=== PATIENT | female | born 1980 | race Caucasian/White ===

== ENCOUNTER 2023-07-26 17:45 | Emergency (ER) | payer BC, SELFPAY ==
--- OUTSIDE RECORDS SUMMARY | 2023-07-26 17:50 | XMS REPORT | Continuity of Care Document ---
:1980 Author Organization [facility] t Address [address] [facility] [address] [place] [address] Care Team Providers Name Role Phone Adonis OTERO, Dimitris Primary Care Physician Oscar Bradford MD Attending Clinician GC_SWHASLWC_[place]_B Attending Clinician Unavailable Ginger Canales MA Attending Clinician Unavailable GABRIEL NGO Attending Clinician Unavailable MD VANITA BAUTISTA Attending Clinician Unavailable VANITA BAUTISTA Attending Clinician Unavailable Garfield Gómez Attending Clinician Unavailable GC_SWHASLWC_[place]_B Admitting Clinician Unavailable MD VANITA BAUTISTA Admitting Clinician Unavailable Garfield Gómez Admitting Clinician Unavailable Payers Payer Name Policy Type Policy Number Effective Date Expiration Date Bonnie kincaid [facility] - [address] [facility] [id number] BENEFITS - CIGNA (PPO) [facility] [id number] Problems Condition Condition Condition Status Onset Resolution Last Treating Co mments Source Name Details Category Date Date Treatment Clinician Date No known No known Disease Metho di active active st problems problems Hospit a l Allergies, Adverse Reactions, Alerts Allergy Allergy Status Severity Reaction(s) Onset Inactive Treating Comm ents Source Name Type Date Date Clinician benzonat DA Active [place] [facility] ate 05-30 [facility] 00:00: d 00 [facility] Center lisinopr DA Active U 2018-0 [facility] il 6 [place] 00:[facility]: d 00 [facility] benzonat DA Active U 2018-0 [facility] ate 6 [place] 00:00: d 00 [facility] Lisinopr Propensi Active Swelling 2018-0 Meth salazar il ty to 05-29 st adverse 00:00: Hospita reaction 00 l s to drug Family History Family Member Diagnosis Comments Start Date Stop Date Source Natural father Hyperlipidemia Method [facility] father Ob[facility] Natural father Diabetes [facility] Maternal grandmother [facility] Maternal grandmother Heart disease [facility]aternal grandmother Osteoporosis [facility] Natural mother Cancer [facility] Natural mother Diabetes [facility] Natural mother Hyperlipidemia Method [facility] Natural mother Hypertension [facility] mother Obesity [facility] Social History Social Habit Start Date Stop Date Quantity Comments Source Gender identity 2020-04-12 Identifies as Method ist 12:47:03 female gender Hospital (finding) Sexual orientation 2020-04-12 Heterosexual Meth odist 12:47:03 (finding) Hospital History SDOH Zoroastrianism Alcohol Std Drinks Hospit al History SDOH Zoroastrianism Alcohol Binge Hospital History SDOH Zoroastrianism Alcohol Comment Hospital Alcohol intake 2023-03-19 2023-03-19 Current drinker of Me thodist 00:00:00 00:00:00 alcohol (finding) Hospita l History of Social 2023-03-19 2023-03-[address] function 00:00:00 00:00:00 Hospital History SDOH 2020-06-09 2020-06-09 1 Zoroastrianism Alcohol Frequency 00:00:00 00:00:00 Hospita l Tobacco use and 2019-09-08 2019-09-08 Smokeless tobacco [facility] exposure 00:00:00 00:00:00 non-user Hospital Sex Assigned At [birth year] Zoroastrianism 00:00:00 00:00:00 Hospital Smoking Status Start Date Stop Date Source Never smoked tobacco Zoroastrianism H ospital Medications Ordered Filled Start Stop Current Ordering Indication Dosage Frequency Signature Comments Components Source Medication Medication Date Date Medication? Clinician (SIG) Name Name magnesium Yes 400mg QD Take 1 Metho di oxide 4-[address] (MAG-OX) 15:30: (400 mg Hospit a 400 mg 01 total) by l (241.3 mg mouth magnesium) daily. tablet multivitami 2022-0 Yes 1{tbl} QD Take 1 Me thodi n 4-[address] (THERAGRAN) 15:30: mouth Hospi ta tablet 01 daily. l melatonin 5 0 Yes Take by Met hodi mg capsule 4-[address] 15:30: Hospita 01 l cholecalcif 0 Yes [id number] Q7D Take 1 Me thodi earl, 4-[address] vitamin D3, 00:00: (50,000 Hos eulalia 1,250 mcg 00 Units l (50,000 total) by unit) mouth once capsule a week. acarbose 0 2023- No 50mg Q.[id number] Take 1 Methodi (PRECOSE) 03-19 04-20 [id number] tablet (50 st 50 MG 00:00: 04:59 3D mg total) Hospit a tablet 00 :00 by mouth 3 l (three) times a day with meals. Wegovy 0.5 0 Yes .5mg Q7D Inject 0.5 M ethodi mg/0.5 mL 3-30 mL (0.[address] pen 00:00: total) Hospita injector 00 under the l skin once a week. cholecalcif 2022- No TAKE ONE M ethodi earl, 12-02 04-20 (1) st vitamin D3, 00:00: 00:00 CAPSULE BY Hospita 1,250 mcg 00 :00 MOUTH ONCE l (50,000 A WEEK. unit) capsule omeprazole 2021-11 No 20mg Q2D Take 20 mg Methodi (PriLOSEC) 01-07 12-[address] 20 MG 16:30: 00:00 every Hospita capsule 22 :00 other day. l semaglutide 2021-11- No 1mg Q7D Inject Met hodi (OZEMPIC) 1 01-07-20 0.75 mL (1 s t mg/dose (4 00:00: 00:00 mg total) H ospita mg/3 mL) 00 :00 under the l subcutaneou skin once s pen a week. cholecalcif 2021-11- No [id number] Q.5W Take 1 M ethodi earl, 01-[address] vitamin D3, 00:00: 00:00 (50,000 Ho spita 1,250 mcg 00 :00 Units l (50,000 total) by unit) mouth 2 capsule (two) times a week. cholecalcif 2021- No [id number] Q7D Take 1 M ethodi earl, 07-[address] vitamin D3, 00:00: 00:00 (50,000 Ho spita 1,250 mcg 00 :00 Units l (50,000 total) by unit) mouth once capsule a week. semaglutide 2021- No .5mg Q7D Inject Met hodi (Ozempic) 07-[address] 0.25 mg or 00:00: 00:00 (0.5 mg Hos eulalia 0.5 mg(2 00 :00 total) l mg/1.5 mL) under the subcutaneou skin once s pen a week. donepeziL Yes [id number] 10mg QD Take 1 M ethodi (ARICEPT) 7-13 tablet (10 st 10 MG 00:00: mg total) Hospita tablet 00 by mouth l nightly. gabapentin Yes [id number] 1{tbl} QD Take 1 Methodi (Gralise) 7-[address] 600 mg 00:00: mouth Hospita tablet 00 daily. l extended release 24 hr memantine Yes [id number] 10mg Q.5D Take 1 M ethodi (Namenda) 7-13 tablet (10 st 10 MG 00:00: mg total) Hospita tablet 00 by mouth 2 l (two) times a day. buPROPion Yes 150mg QD Take 150 Met hodi XL 1-[address] (WELLBUTRIN 10:23: mouth Hospi ta XL) 150 MG 51 daily. l 24 hr tablet atorvastati 0 Yes 10mg QD Take 10 mg Methodi n (LIPITOR) 1-[address] 40 MG 10:23: daily. Hospita tablet 25 l donepeziL 0 2020- No [id number] 10mg QD Take 1 Methodi (ARICEPT) 1-14 07-13 tablet (10 st 10 MG 00:00: 00:00 mg total) Hospit a tablet 00 :00 by mouth l nightly. gabapentin 2020- No [id number] 1{tbl} QD Take 1 Methodi (Gralise) 12-[address] 600 mg 00:00: 00:00 mouth Hospita tablet 00 :00 daily. l extended release 24 hr memantine 2020- No [id number] 10mg Q.5D Take 1 Methodi (Namenda) 12-13 tablet (10 st 10 MG 00:00: 00:00 mg total) Hospit a tablet 00 :00 by mouth 2 l (two) times a day. magnesium 2020-0 Yes 400mg QD Take 400 Met hodi oxide 5-[address] (MAG-OX) 06:54: mouth Hospita 400 mg 01 daily. l (241.3 mg magnesium) tablet multivitami 2020-0 Yes 1{tbl} QD Take 1 Me thodi n 5-[address] (THERAGRAN) 06:54: mouth Hospi ta tablet 01 daily. l melatonin 5 2020-0 Yes Take by Met hodi mg capsule 5-[address] 06:54: Hospita 01 l aspirin 325 2020-0 Yes 325mg QD Take 325 M ethodi MG tablet 1-[address] 17:24: mouth Hospita 13 daily. l cyanocobala 2018-11 Yes Q30D every 30 Me thodi min 1,000 0-02 (thirty) st mcg/mL 00:00: days. Hospita injection l furosemide 2018-11 Yes 20mg QD Take 20 mg M ethodi (LASIX) 20 0-[address] mg tablet 00:00: daily. Hospit a 00 l cyanocobala 2018-11 Yes Q30D every 30 Me thodi min 1,000 0-02 (thirty) st mcg/mL 00:00: days. Hospita injection 00 l furosemide 2018-11- No 20mg QD Take 1 Meth salazar (LASIX) 20 0-02 04-20 tablet (20 st mg tablet 00:00: 00:00 mg total) Ho spita 00 :00 by mouth l daily. XARELTO 20 Yes 20mg QD Take 20 mg M ethodi mg tablet - by mouth st 00:00: daily. Hospita 00 l XARELTO Yes 20mg QD Take 1 Metho di mg tablet - tablet ( 00:00: mg total) Hospita 00 by mouth l daily. amoxicillin amoxicillin No amoxicilli [facility] [phone] [phone] Medical mg-potassiu mg-potassiu mg-potassi m m um clavulanate clavulanate clavulanat 125 mg 125 mg e 125 mg tablet TAKE tablet TAKE tablet ONE (1) ONE (1) TAKE ONE TABLET BY TABLET BY (1) TABLET MOUTH TWICE MOUTH TWICE BY MOUTH A DAY FOR 7 A DAY FOR 7 TWICE A DAYS. DAYS. DAY FOR 7 DAYS. bromphenira bromphenira No bromphenir [facility] mine-pseudo mine-pseudo amine-pseu Medical ephedrine-D ephedrine-D doephedrin M 2 mg-30 M 2 mg-30 e-DM 2 mg-10 mg/5 mg-10 mg/5 mg-30 mL oral mL oral mg-10 mg/5 syrup TAKE syrup TAKE mL oral 10 ML(S) BY 10 ML(S) BY syrup TAKE MOUTH EVERY MOUTH EVERY 10 ML(S) 4 HOURS 4 HOURS BY MOUTH NEEDED. NEEDED. EVERY 4 HOURS NEEDED. cholecalcif cholecalcif No cholecalci [facility] earl earl ferol Medical (vitamin (vitamin (vitamin D3) 1,250 D3) 1,250 D3) 1,250 mcg (50,000 mcg (50,000 mcg unit) unit) (50,000 capsule capsule unit) TAKE ONE TAKE ONE capsule (1) CAPSULE (1) CAPSULE TAKE ONE BY MOUTH BY MOUTH (1) ONCE A ONCE A CAPSULE BY WEEK. WEEK. MOUTH ONCE A WEEK. fluconazole fluconazole No 1 Q1D fluconazol [facility] 150 mg 150 mg e 150 mg Medical tablet Take tablet Take tablet 1 tablet 1 tablet Take 1 every day every day tablet by oral by oral every day route for 2 route for 2 by oral days. days. route for 2 days. furosemide furosemide No furosemide [facility] 20 mg 20 mg 20 mg Medical tablet TAKE tablet TAKE tablet ONE (1) ONE (1) TAKE ONE TABLET(S) TABLET(S) (1) BY MOUTH BY MOUTH TABLET(S) ONCE A DAY. ONCE A DAY. BY MOUTH ONCE A DAY. methylpredn methylpredn No methylpred [facility] isolone 4 isolone 4 nisolone 4 Medical mg tablets mg tablets mg tablets in a dose in a dose in a dose pack TAKE pack TAKE pack TAKE BY MOUTH BY MOUTH BY MOUTH ACCORDING ACCORDING ACCORDING TO PACKAGE TO PACKAGE TO PACKAGE INSTRUCTION INSTRUCTION INSTRUCTIO S FOR 6 S FOR 6 NS FOR 6 DAYS. DAYS. DAYS. Nasopen PE Nasopen PE No Nasopen PE [facility] 50 mg-10 50 mg-10 50 mg-10 Med ical mg/15 mL mg/15 mL mg/15 mL oral liquid oral liquid oral TAKE 15 TAKE 15 liquid ML(S) BY ML(S) BY TAKE 15 MOUTH EVERY MOUTH EVERY ML(S) BY 6 HOURS 6 HOURS MOUTH NEEDED FOR NEEDED FOR EVERY 6 CONGESTION. CONGESTION. HOURS NEEDED FOR CONGESTION . Ozempic 1 Ozempic 1 No Ozempic 1 [facility] mg/dose (4 mg/dose (4 mg/dose (4 Medical mg/3 mL) mg/3 mL) mg/3 mL) subcutaneou subcutaneou subcutaneo s pen s pen us pen injector injector injector INJECT ONE INJECT ONE INJECT ONE (1) MG (1) MG (1) MG SUBCUTANEOU SUBCUTANEOU SUBCUTANEO SLY ONCE A SLY ONCE A USLY ONCE WEEK. WEEK. A WEEK. phenazopyri phenazopyri No phenazopyr [facility] dine 200 mg dine 200 mg idine 200 Medical tablet TAKE tablet TAKE mg tablet ONE (1) ONE (1) TAKE ONE TABLET BY TABLET BY (1) TABLET MOUTH THREE MOUTH THREE BY MOUTH TIMES A DAY TIMES A DAY THREE FOR 2 DAYS. FOR 2 DAYS. TIMES A DAY FOR 2 DAYS. Rybelsus 7 Rybelsus 7 No Rybelsus 7 [facility] mg tablet mg tablet mg tablet Medical TAKE ONE TAKE ONE TAKE ONE (1) TABLET (1) TABLET (1) TABLET BY MOUTH BY MOUTH BY MOUTH DAILY. DAILY. DAILY. tizanidine tizanidine No tizanidine [facility] 4 mg tablet 4 mg tablet 4 mg M edical TAKE ONE TAKE ONE tablet (1) TABLET (1) TABLET TAKE ONE BY MOUTH BY MOUTH (1) TABLET THREE TIMES THREE TIMES BY MOUTH A DAY A DAY THREE NEEDED FOR NEEDED FOR TIMES A MUSCLE MUSCLE DAY SPASMS. SPASMS. NEEDED FOR MUSCLE SPASMS. Vanacof 1 Vanacof 1 No Vanacof 1 [facility] mg-30 mg-30 mg-30 Medical mg-12.5 mg-12.5 mg-12.5 mg/5 mL mg/5 mL mg/5 mL oral liquid oral liquid oral TAKE 10 TAKE 10 liquid ML(S) BY ML(S) BY TAKE 10 MOUTH EVERY MOUTH EVERY ML(S) BY 8 HOURS FOR 8 HOURS FOR MOUTH COUGH/CONGE COUGH/CONGE EVERY 8 STION/DRAIN STION/DRAIN HOURS FOR AGE. AGE. COUGH/NII ESTION/KHANH INAGE. Xarelto 20 Xarelto 20 No Xarelto 20 [facility] mg tablet mg tablet mg tablet Medical TAKE ONE TAKE ONE TAKE ONE (1) TABLET (1) TABLET (1) TABLET BY MOUTH BY MOUTH BY MOUTH DAILY. DAILY. DAILY. Vital Signs Vital Name Observation Time Observation Value Comments Source Systolic blood 2023-03-19 20:33:00 121 mm[Hg] [facility] pressure Diastolic blood 2023-03-19 20:33:00 83 mm[Hg] [facility] pressure Heart rate 2023-03-19 20:33:00 74 /min [facility] Body height 2023-03-19 20:33:00 165.1 cm [facility] Body weight 2023-03-19 20:33:00 150.594 kg [facility] BMI 2023-03-19 20:33:00 55.25 kg/m2 [facility] Procedures Procedure Date / Time Performed Performing Clinician Sourc e MAMMO, screening, digital, 2023-01-15 00:00:00 P [facility] bilateral Eswl for Gallstones [facility] Gastric Bypass for Obesity [facility] Plan of Care Planned Activity Planned Date Details Comments Source Future Scheduled Test 2023-07-26 COVID-19 VACCINE (#1) [facility] 12:34:57 [code = COVID-19 VACCINE (#1)] Future Scheduled Test 2023-07-26 Hepatitis C screening [facility] 12:34:57 (procedure) [code = 712944858] Future Scheduled Test 2023-07-26 [facility] 12:34:57 malignant neoplasm of cervix (procedure) [code = 902147646] Future Scheduled Test 2023-07-26 BREAST CANCER [facility] 12:34:57 SCREENING [code = BREAST CANCER SCREENING] Future Scheduled Test 2023-07-26 INFLUENZA VACCINE M [facility] 12:34:57 (#1) [code = INFLUENZA VACCINE (#1)] Diagnostic Test 2023-01-15 pap, LB + HPV [code = [facility] Pending 00:00:00 pap, LB + HPV] Diagnostic Test 2023-01-15 Indirect antiglobulin [facility] Pending 00:00:00 test.IgG specific reagent [Presence] in Serum or Plasma [code = 1005-8] Diagnostic Test 2023-01-15 unlisted lab [code = [facility] Pending 00:00:00 unlisted lab] Diagnostic Test 2023-01-15 Clostridium tetani Ab [facility] Pending 00:00:00 [Presence] in Serum [code = 5093-0] Diagnostic Test 2023-01-15 unlisted lab [code = [facility] Pending 00:00:00 unlisted lab] Diagnostic Test 2023-01-15 HIV 1+2 AB + HIV 1 [facility] Pending 00:00:00 p24 Ag, qualitative immunoassay, serum [code = HIV 1+2 AB + HIV 1 p24 Ag, qualitative immunoassay, serum] Diagnostic Test 2023-01-15 RPR (rapid plasma [facility] Pending 00:00:00 reagin), serum [code = RPR (rapid plasma reagin), serum] Diagnostic Test 2023-01-15 HBsAg (hepatitis B [facility] Pending 00:00:00 surface Ag), serum [code = HBsAg (hepatitis B surface Ag), serum] Diagnostic Test 2023-01-15 hsv (1+2) igg, serum [facility] Pending 00:00:00 [code = hsv (1+2) igg, serum] Diagnostic Test 2023-01-15 hepatitis C Ab, serum [facility] Pending 00:00:00 [code = hepatitis C Ab, serum] Future Scheduled Test 2022-01-01 COVID-19 VACCINE (1) [facility] 00:32:29 [code = COVID-19 VACCINE (1)] Future Scheduled Test 2022-01-01 Hepatitis C screening [facility] 00:32:29 (procedure) [code = 915160249] Future Scheduled Test 2022-01-01 [facility] 00:32:29 malignant neoplasm of cervix (procedure) [code = 780877217] Future Scheduled Test 2022-01-01 INFLUENZA VACCINE [facility] 00:32:29 [code = INFLUENZA VACCINE] Future Appointment 2024-01-15 [facility] Audra, [facility] ia Medical 00:00:00 [address] [facility]; [address], [place] [address] Encounters Start End Encounter Admission Attending Care Care Encounter Source Date/Time Date/Time Type Type Clinicians Facility Department ID 2023-03-19 2023-03-19 Office Suzette, 2.840.1 [id number] [facility] 15:40:00 16:02:26 Visit Oscar 23705.1.[address] 3.430.2.7 Hospit a .3.466937 l .8 2023-03-19 2023-03-19 Travel 1.2.840.1 1.2.743.399 [id number] [facility] 00:00:00 00:00:[address] 3.430.2.7 0.2.7.3.698 Ho spita .3.681189 084.8 l .8 2023-03-19 2023-03-19 Outpatient SUZETTECAPE [facility] [id number] [place] 00:00:00 00:00:00 OSCAR [address] 2023-01-15 2023-01-15 Outpatient [facility] PRIV PRIV [id number] [facility] 00:00:00 00:00:00 _[place]_B [id number] [facility] 2023-01-15 2023-01-15 [facility] 2022 215 [facility] 00:00:00 00:00:00 [facility] Medic rosales OTERO: [id number] [facility] Office* [address], [address], [place] [address] , Ph. 2023-01-14 2023-01-14 Outpatient [facility] PRIV PRIV [id number] [facility] 00:00:00 00:00:00 _Parish_B [id number] [facility] 2023-01-09 2023-01-09 Outpatient [facility] PRIV PRIV [id number] [facility] 00:00:00 00:00:00 _Parish_B [id number] [facility] 2023-01-08 2023-01-08 Outpatient [facility] PRIV PRIV [id number] [facility] 00:00:00 00:00:00 _Parish_B [id number] [facility] 2022-12-02 2022-12-02 Refill Suzette, 1.2.840.1 [id number] [facility] 00:00:00 00:00:[address] 3.430.2.7 Hospit a .3.267816 l .8 2022-11-06 2022-11-06 Office Suzette, 1.2.840.1 [id number] [facility] 15:40:00 16:34:26 Visit Oscar [address]990.1.[address] 3.430.2.7 Hospit a .3.318946 l .8 2022-11-06 2022-11-06 Travel 1.2.840.1 1.2.227.051 [id number] [facility] 00:00:00 00:00:[address] 3.430.2.7 0.2.7.3.698 spita .3.618367 084.8 l .8 2022-11-06 2022-11-06 Outpatient [facility]TECAPE [facility] [id number] [place] 00:00:00 00:00:00 OSCAR [address] 2022-10-31 2022-10-31 Orders Parker, 1.2.840.1 [id number] [facility] 00:00:00 00:00:00 Only Ginger 51819.1.[address] 3.430.2.7 Hospit a .3.324390 l .8 2022-07-03 2022-07-03 Outpatient SUZETTE [facility] [id number] [place] 00:00:00 00:00:00 OSCAR [address] 2022-06-10 2022-06-10 Outpatient GABRIEL NGO [facility] [id number] [place] 00:00:00 00:00:[address] 2021-06-11 2021-06-11 Telemedici Gabriel Ngo 1.2.840.1 [id number] [facility] 15:37:36 15:38:[address] 3.430.2.7 Hospit a .3.199673 l .8 2020-12-13 2020-12-13 Outpatient GABRIEL NGO [facility] [id number] [place] 00:00:00 00:00:[address] 2020-07-13 2020-07-13 Outpatient GABRIEL NGO [facility] [id number] [place] 00:00:00 00:00:[address] 2020-06-09 2020-06-09 Emergency [facility] [id number] [place] 00:00:00 00:00:00 RAJEEB [address] 2020-04-12 2020-04-12 Outpatient GABRIEL NGO [facility] [id number] [place] 00:00:00 00:00:[address] Results Test Description Test Time Test Comments Results Result Comments Source Hepatitis C virus Ab [Presence] in Serum 2023-01-21 00:00:00 Test Item Value Reference Range Interpretation Comme nts hep. C Ab. (test code = hep. C Ab.) non-reactive non-reactive [facility] MedicalHerpes simplex virus 1+2 IgG Ab [Units/volume] in Serum by [id number] 00:00:00 Test Item Value Reference Range Interpretation Comments herpes I Ab.(IgG) (test code = herpes 0.02 ai <0.90 I Ab.(IgG)) herpes II Ab.(IgG) (test code = 0.11 ai <0.90 herpes II Ab.(IgG)) [facility] MedicalReagin Ab [Presence] in Serum by [id number] 00:00:00 Test Item Value Reference Range Interpretation Comments RPR (test code = RPR) non-reactive non-reactive [facility] MedicalHepatitis B virus surface Ag [Presence] in [id number] 00:00:00 Test Item Value Reference Range Interpretation Comments hep. B surf. Ag (test code = non-reactive non-reactive hep. B surf. Ag) [facility]+2 Ab+HIV1 p24 Ag [Presence] in Serum or Plasma by [id number] 00:00:00 Test Item Value Reference Range Interpretation Comments HIV Ag/Ab (test code = HIV non-reactive non-reactive Ag/Ab) [facility] [id number] (COVID-19) RNA [Presence] in Respiratory specimen by IRIS with probe [id number] 20:46:10 Test Item Value Reference Range Interpretation Comments SARS-CoV-2 (COVID-19) RNA [Presence] Detected Not-Detected in Respiratory specimen by IRIS with probe detection (test code = 08291-2) [facility] [id number] 15:19:00 Test Item Value Reference Range Interpretation Comments FACTOR II (test code = FAC2) 116 % 50-154 FACTOR V [id number] 15:19:00 Test Item Value Reference Range Interpretation Comments FACTOR V Result: Negativ e (no mutation MUTATION (test found)Factor V Leiden is a code = FAC5M) specific mutat ion (R506Q) in thefactor V gen e that is associated with an increased risk ofvenous t hrombosis. Factor V Leiden is mor e resistant toinactivation by activated protein C. As a result, factor Vpersists in th e circulation leading to a mi ldhypercoagulable state. The Leid en mutation accounts for 90 %- 95% of APC resistance. Fac tor V Leiden has been reportedin patients with deep vein throm bosis, pulmonary embolus,central retinal vein occlusion, cere bral sinus thrombosisand h epatic vein thrombosis. Ot er risk factors to beconsidered in the workup for venous thro mbosis include [id number] muta tion in the factor II (prot hrombin) gene,protein S and C deficiency, and antithrombi n deficiencies.An ticardiolipin antibody and rody pus anticoagulant analysismay be appropriate for certain patient s, as well ashomocysteine levels. Contact your local [facility] orp forinformation on how to order additional test ing if desired.Ashley ic counselors are available for [facility] careproviders t o discuss results at [address] [place] [address] ([phone]).Methodol ogy:DNA analysis of the Factor V gene was performed by al shahram-specific PCR. The diagno stic sensitivity and specificity is>99% for both. Molecular -based testing is highly accurate ,but as in any laboratory test , diagnostic errors may occu r.All test results must be combined with clinical inform ationfor the most accurate interp retation.This test was develo ped and its performance characteristics determined by [facility]. It has not been cleared or approvedby [facility] Food and Drug Administration. References:Abner Moore (1995). Clin Lab Med 16:169-186.Poonam Bae, PhD, Aniyah Carranza, PhD, Rosette Steel M.S., PhD, Jan Zaman, PhD, Rajiv aviles, PhD, Cassi ramos PhD, FACMGPerformed At: [facility] [id number] [place], [place] [id number] Eusebiobety Harvey Ph: [phone] ANTITHROMBIN III (ATIII)2019-06-06 15:19:00 Test Item Value Reference Range Interpretation Comments ANTITHROMBIN III 115 % 75-135 Direct Xa i nhibitor (ATIII) (test code = anticoa gulants such as AT3) rivaroxaban,api xaban and edoxaban will l ead to spuriously elevatedantithr ombin activity levels possibly masking a defic iency. PROTEIN C [id number] 15:19:00 Test Item Value Reference Range Interpretation Comments PROTEIN C FUNCTIONAL 82 % 73-180 Perform ed At: BN (test code = PROTCFN) [facility] [id number] [facility] Brayden fuentes, [place] [id number] laura Little MD Ph:[phone] [id number] 15:19:00 Test Item Value Reference Range Interpretation Comments [id number] < 9 0-32 INFCE Result Un its: GPI IgM I IGM (test unitsThe refere nce interval code = reflects a 3SD or 99th GPIIGM) percentileinter joshua, which is thought to repr esent a potentiallyclin ically significant res ult in accordance with theInternationa l Consensus Statement on e classificationc riteria for definitive anti phospholipid syndrome (APS). JThromb Haem 2006;4:295-306. Performed At: [facility] [id number] [facility] Nuzhat aviles, [place] [id number] ra Sidney OTERO Ph:[phone] [id number] < 9 0-20 INFCE Result Un its: GPI IgG I IGG (test unitsThe refere nce interval code = reflects a 3SD or 99th GPIIGG) percentileinter joshua, which is thought to repr esent a potentiallyclin ically significant res ult in accordance with theInternationa l Consensus Statement on e classificationc riteria for definitive anti phospholipid syndrome (APS). JThromb Haem 2006;4:295-306. [id number]-9-[id number] < 9 UNITS 0.0-20.0 N I IGA (test code = GPIIGA) FACTOR [id number] 12:23:00 Test Item Value Reference Range Interpretation Comments FACTOR II (test code = FAC2) 116 % 50-154 FACTOR V [id number] 12:23:00 Test Item Value Reference Range Interpretation Comments FACTOR V MUTATION (test code = FAC5M) ANTITHROMBIN III (ATIII)2019-06-04 12:23:00 Test Item Value Reference Range Interpretation Comments ANTITHROMBIN III 115 % 75-135 Direct Xa i nhibitor (ATIII) (test code = anticoa gulants such as AT3) rivaroxaban,api xaban and edoxaban will l ead to spuriously elevatedantithr ombin activity levels possibly masking a defic iency. PROTEIN C [id number] 12:23:00 Test Item Value Reference Range Interpretation Comments PROTEIN C FUNCTIONAL 82 % 73-180 Perform ed At: BN (test code = PROTCFN) [facility] [address] [facility] [place], [place] [id number] laura Little MD Ph:[phone] [id number] 12:23:00 Test Item Value Reference Range Interpretation Comments [id number]-6-[id number] I < 9 0-32 INFCE Result Units: GPI IgM IGM (test code unitsThe refe rence interval = GPIIGM) reflects a 3SD or 99th percentileinter joshua, which is thought to repr esent a potentiallyclin ically significant res ult in accordance with theInterna tional Consensus Statement on e classificationc riteria for definitive anti phospholipid syndrome (APS). JThromb Haem 2006;4:295-306. Performed At: [facility] [id number] [facility] n, [place] [id number] ra Sidney OTERO Ph:[phone] [id number] I < 9 0-20 INFCE Result Units: GPI IgG IGG (test code unitsThe refe rence interval = GPIIGG) reflects a 3SD or 99th percentileinter joshua, which is thought to repr esent a potentiallyclin ically significant res ult in accordance with theInterna tional Consensus Statement on th e classificationc riteria for definitive anti phospholipid syndrome (APS). JThromb Haem 2006;4:295-306. [id number]-5-[id number] I UNITS 0.0-20.0 IGA (test code = GPIIGA) CARDIOLIPIN AB IGG (CHEM)2019-06-02 21:11:00 Test Item Value Reference Range Interpretation Comments CARDIOLIPIN AB IGG <9 GPL U/mL 0-14 Negative : <15 (CHEM) (test code = Indeterm inate: 15 - CARDIOGAB) 20 Low-Med Positive: >20 - 80 High Positive: >80 CARDIOLIPIN AB IGM (CHEM)2019-06-02 21:11:00 Test Item Value Reference Range Interpretation Comments CARDIOLIPIN AB IGM <9 MPL U/mL 0-12 Negative : <13 (CHEM) (test code = Indeterm inate: 13 - CARDIOMAB) 20 Low-Med Positive: >20 - 80 High Positive: >80Performed At : [facility] [id number] [facility] n, [place] [id number] ra Sidney OTERO Ph:[phone] HOMOCYSTEINE [id number] 12:54:00 Test Item Value Reference Range Interpretation Comments HOMOCYSTEINE QN (test 9.3 umol/L 0.0-15.0 Perfor med At: HD code = HOMOCY) [facility] [id number] [place], [place] [id number] Kyle L MD Ph:[phone] CBC W/AUTO [id number] 02:59:00 Test Item Value Reference Range Interpretation Comments WHITE BLOOD CELL (test code = 7.9 x10 3/uL 5.0-12.0 N WBC) RED BLOOD CELL (test code = 4.07 x10 6/uL 4.20-5.40 L RBC) HEMOGLOBIN (test code = HGB) 7.8 g/dL 12.0-16.0 L HEMATOCRIT (test code = HCT) 28.2 % 36.0-46.0 L MEAN CELL VOLUME (test code = 69 fL 81-99 L MCV) MEAN CELL HGB (test code = MCH) 19.2 pg 27-31 L MEAN CELL HGB CONCENTRATION 27.7 g/dL 33-37 L (test code = MCHC) RED CELL DISTRIBUTION WIDTH 18.3 % 11.5-15.5 H (test code = RDW) PLATELET COUNT (test code = 377 x10 3/uL 130-400 N PLT) MEAN PLATELET VOLUME (test code 9.7 fL 9.4-16.4 N = MPV) NEUTROPHIL % (test code = NT%) 61.6 % 43-65 N IMMATURE GRANULOCYTE % (test 0.4 % 0.0-2.0 N code = IG%) LYMPHOCYTE % (test code = LY%) 28.2 % 20.5-45.5 N MONOCYTE % (test code = MO%) 8.2 % 5.5-11.7 N EOSINOPHIL % (test code = EO%) 1.1 % 0.9-2.9 N BASOPHIL % (test code = BA%) 0.5 % 0.2-1.0 N NUCLEATED RBC % (test code = 0.0 % 0-1.0 N NRBC%) NEUTROPHIL # (test code = NT#) 4.88 x10 3/uL 2.2-4.8 H IMMATURE GRANULOCYTE # (test 0.03 x10 3/uL 0-0.03 N code = IG#) LYMPHOCYTE # (test code = LY#) 2.24 x10 3/uL 1.3-2.9 N MONOCYTE # (test code = MO#) 0.65 x10 3/uL 0.3-0.8 N EOSINOPHIL # (test code = EO#) 0.09 x10 3/uL 0.0-0.2 N BASOPHIL # (test code = BA#) 0.04 x10 3/uL 0.0-0.1 N PLATELET ESTIMATE (test code = ADEQUATE ADEQUATE PLTEST) PLATELET MORPHOLOGY (test code NORMAL NORMAL = PLTMORPH) DIFFERENTIAL [id number] 02:59:00 Test Item Value Reference Range Interpretation Comments POLYCHROMASIA (test code = POLC) 1+ NONE SEEN A ANISOCYTOSIS (test code = ANISO) 2+ NONE SEEN A MICROCYTOSIS (test code = MICR) 2+ NONE SEEN A BASIC METABOLIC [id number] 02:45:00 Test Item Value Reference Range Interpretation Comments SODIUM (test code = 139 mmol/L 137-145 N NA) POTASSIUM (test code 3.6 mmol/L 3.4-5.0 N = K) CHLORIDE (test code = 109 mmol/L 98-107 H CL) CARBON DIOXIDE (test 20 mmol/L 22-30 L code = CO2) GLUCOSE (test code = 84 mg/dL 74-106 N GLU) BLOOD UREA NITROGEN 9 mg/dL 7-17 N (test code = BUN) GLOMERULAR FILTRATION 118 >60 The es timated RATE (test code = glomerular filtration GFR) rate is compute d usingpatient ra ce, age (>18), sex, and serum creatinine. If anyof the needed data elements are mi ssing the Laboratory cannot compute an addie mation of the glomerul ar filtration rate . CREATININE (test code 0.6 mg/dL 0.5-1.0 N = CREAT) CALCIUM (test code = 8.6 mg/dL 8.4-10.2 N CA) [id number] 02:45:00 Test Item Value Reference Range Interpretation Comments MAGNESIUM (test code = MAG) 1.9 mg/dL 1.6-2.3 N CBC W/AUTO [id number] 02:33:00 Test Item Value Reference Range Interpretation Comments WHITE BLOOD CELL (test code = 7.9 x10 3/uL 5.0-12.0 N WBC) RED BLOOD CELL (test code = 4.07 x10 6/uL 4.20-5.40 L RBC) HEMOGLOBIN (test code = HGB) 7.8 g/dL 12.0-16.0 L HEMATOCRIT (test code = HCT) 28.2 % 36.0-46.0 L MEAN CELL VOLUME (test code = 69 fL 81-99 L MCV) MEAN CELL HGB (test code = MCH) 19.2 pg 27-31 L MEAN CELL HGB CONCENTRATION 27.7 g/dL 33-37 L (test code = MCHC) RED CELL DISTRIBUTION WIDTH 18.3 % 11.5-15.5 H (test code = RDW) PLATELET COUNT (test code = 377 x10 3/uL 130-400 N PLT) MEAN PLATELET VOLUME (test code 9.7 fL 9.4-16.4 N = MPV) NEUTROPHIL % (test code = NT%) 61.6 % 43-65 N IMMATURE GRANULOCYTE % (test 0.4 % 0.0-2.0 N code = IG%) LYMPHOCYTE % (test code = LY%) 28.2 % 20.5-45.5 N MONOCYTE % (test code = MO%) 8.2 % 5.5-11.7 N EOSINOPHIL % (test code = EO%) 1.1 % 0.9-2.9 N BASOPHIL % (test code = BA%) 0.5 % 0.2-1.0 N NUCLEATED RBC % (test code = 0.0 % 0-1.0 N NRBC%) NEUTROPHIL # (test code = NT#) 4.88 x10 3/uL 2.2-4.8 H IMMATURE GRANULOCYTE # (test 0.03 x10 3/uL 0-0.03 N code = IG#) LYMPHOCYTE # (test code = LY#) 2.24 x10 3/uL 1.3-2.9 N MONOCYTE # (test code = MO#) 0.65 x10 3/uL 0.3-0.8 N EOSINOPHIL # (test code = EO#) 0.09 x10 3/uL 0.0-0.2 N BASOPHIL # (test code = BA#) 0.04 x10 3/uL 0.0-0.1 N CBC W/AUTO [id number] 02:33:00 Test Item Value Reference Range Interpretation Comments WHITE BLOOD CELL (test code = 7.9 x10 3/uL 5.0-12.0 N WBC) RED BLOOD CELL (test code = 4.07 x10 6/uL 4.20-5.40 L RBC) HEMOGLOBIN (test code = HGB) 7.8 g/dL 12.0-16.0 L HEMATOCRIT (test code = HCT) 28.2 % 36.0-46.0 L MEAN CELL VOLUME (test code = 69 fL 81-99 L MCV) MEAN CELL HGB (test code = MCH) 19.2 pg 27-31 L MEAN CELL HGB CONCENTRATION 27.7 g/dL 33-37 L (test code = MCHC) RED CELL DISTRIBUTION WIDTH 18.3 % 11.5-15.5 H (test code = RDW) PLATELET COUNT (test code = 377 x10 3/uL 130-400 N PLT) MEAN PLATELET VOLUME (test code 9.7 fL 9.4-16.4 N = MPV) NEUTROPHIL % (test code = NT%) 61.6 % 43-65 N IMMATURE GRANULOCYTE % (test 0.4 % 0.0-2.0 N code = IG%) LYMPHOCYTE % (test code = LY%) 28.2 % 20.5-45.5 N MONOCYTE % (test code = MO%) 8.2 % 5.5-11.7 N EOSINOPHIL % (test code = EO%) 1.1 % 0.9-2.9 N BASOPHIL % (test code = BA%) 0.5 % 0.2-1.0 N NUCLEATED RBC % (test code = 0.0 % 0-1.0 N NRBC%) NEUTROPHIL # (test code = NT#) 4.88 x10 3/uL 2.2-4.8 H IMMATURE GRANULOCYTE # (test 0.03 x10 3/uL 0-0.03 N code = IG#) LYMPHOCYTE # (test code = LY#) 2.24 x10 3/uL 1.3-2.9 N MONOCYTE # (test code = MO#) 0.65 x10 3/uL 0.3-0.8 N EOSINOPHIL # (test code = EO#) 0.09 x10 3/uL 0.0-0.2 N BASOPHIL # (test code = BA#) 0.04 x10 3/uL 0.0-0.1 N [id number] 14:22:00 Test Item Value Reference Range Interpretation Comments GLUBED (test code = GLUBED) 77 MG/DL 74-106 N [id number] 10:07:00 Test Item Value Reference Range Interpretation Comments GLUBED (test code = GLUBED) 74 MG/DL 74-106 N [id number] 10:07:00 Test Item Value Reference Range Interpretation Comments GLUBED (test code = GLUBED) 81 MG/DL 74-106 N CBC W/AUTO [id number] 05:57:00 Test Item Value Reference Range Interpretation Comments WHITE BLOOD CELL (test code = 6.5 x10 3/uL 5.0-12.0 N WBC) RED BLOOD CELL (test code = 4.07 x10 6/uL 4.20-5.40 L RBC) HEMOGLOBIN (test code = HGB) 7.9 g/dL 12.0-16.0 L HEMATOCRIT (test code = HCT) 27.9 % 36.0-46.0 L MEAN CELL VOLUME (test code = 69 fL 81-99 L MCV) MEAN CELL HGB (test code = MCH) 19.4 pg 27-31 L MEAN CELL HGB CONCENTRATION 28.3 g/dL 33-37 L (test code = MCHC) RED CELL DISTRIBUTION WIDTH 18.3 % 11.5-15.5 H (test code = RDW) PLATELET COUNT (test code = 375 x10 3/uL 130-400 N PLT) MEAN PLATELET VOLUME (test code 9.8 fL 9.4-16.4 N = MPV) NEUTROPHIL % (test code = NT%) 58.3 % 43-65 N IMMATURE GRANULOCYTE % (test 0.2 % 0.0-2.0 N code = IG%) LYMPHOCYTE % (test code = LY%) 31.2 % 20.5-45.5 N MONOCYTE % (test code = MO%) 8.9 % 5.5-11.7 N EOSINOPHIL % (test code = EO%) 0.8 % 0.9-2.9 L BASOPHIL % (test code = BA%) 0.6 % 0.2-1.0 N NUCLEATED RBC % (test code = 0.0 % 0-1.0 N NRBC%) NEUTROPHIL # (test code = NT#) 3.80 x10 3/uL 2.2-4.8 N IMMATURE GRANULOCYTE # (test 0.01 x10 3/uL 0-0.03 N code = IG#) LYMPHOCYTE # (test code = LY#) 2.03 x10 3/uL 1.3-2.9 N MONOCYTE # (test code = MO#) 0.58 x10 3/uL 0.3-0.8 N EOSINOPHIL # (test code = EO#) 0.05 x10 3/uL 0.0-0.2 N BASOPHIL # (test code = BA#) 0.04 x10 3/uL 0.0-0.1 N PLATELET ESTIMATE (test code = ADEQUATE ADEQUATE PLTEST) PLATELET MORPHOLOGY (test code NORMAL NORMAL = PLTMORPH) DIFFERENTIAL [id number] 05:57:00 Test Item Value Reference Range Interpretation Comments POLYCHROMASIA (test code = POLC) 1+ NONE SEEN A HYPOCHROMIA (test code = HYPO) 1+ NONE SEEN A ANISOCYTOSIS (test code = ANISO) 2+ NONE SEEN A MICROCYTOSIS (test code = MICR) 2+ NONE SEEN A BASIC METABOLIC [id number] 05:33:00 Test Item Value Reference Range Interpretation Comments SODIUM (test code = 138 mmol/L 137-145 N NA) POTASSIUM (test code 3.6 mmol/L 3.4-5.0 N = K) CHLORIDE (test code = 108 mmol/L 98-107 H CL) CARBON DIOXIDE (test 20 mmol/L 22-30 L code = CO2) GLUCOSE (test code = 88 mg/dL 74-106 N GLU) BLOOD UREA NITROGEN 6 mg/dL 7-17 L (test code = BUN) GLOMERULAR FILTRATION 118 >60 The es timated RATE (test code = glomerular filtration GFR) rate is compute d usingpatient ra ce, age (>18), sex, and serum creatinine. If anyof the needed data elements are mi ssing the Laboratory cannot compute an addie mation of the glomerul ar filtration rate . CREATININE (test code 0.6 mg/dL 0.5-1.0 N = CREAT) CALCIUM (test code = 8.4 mg/dL 8.4-10.2 N CA) [id number] 05:33:00 Test Item Value Reference Range Interpretation Comments MAGNESIUM (test code = MAG) 2.0 mg/dL 1.6-2.3 N CBC W/AUTO [id number] 05:10:00 Test Item Value Reference Range Interpretation Comments WHITE BLOOD CELL (test code = 6.5 x10 3/uL 5.0-12.0 N WBC) RED BLOOD CELL (test code = 4.07 x10 6/uL 4.20-5.40 L RBC) HEMOGLOBIN (test code = HGB) 7.9 g/dL 12.0-16.0 L HEMATOCRIT (test code = HCT) 27.9 % 36.0-46.0 L MEAN CELL VOLUME (test code = 69 fL 81-99 L MCV) MEAN CELL HGB (test code = MCH) 19.4 pg 27-31 L MEAN CELL HGB CONCENTRATION 28.3 g/dL 33-37 L (test code = MCHC) RED CELL DISTRIBUTION WIDTH 18.3 % 11.5-15.5 H (test code = RDW) PLATELET COUNT (test code = 375 x10 3/uL 130-400 N PLT) MEAN PLATELET VOLUME (test code 9.8 fL 9.4-16.4 N = MPV) NEUTROPHIL % (test code = NT%) 58.3 % 43-65 N IMMATURE GRANULOCYTE % (test 0.2 % 0.0-2.0 N code = IG%) LYMPHOCYTE % (test code = LY%) 31.2 % 20.5-45.5 N MONOCYTE % (test code = MO%) 8.9 % 5.5-11.7 N EOSINOPHIL % (test code = EO%) 0.8 % 0.9-2.9 L BASOPHIL % (test code = BA%) 0.6 % 0.2-1.0 N NUCLEATED RBC % (test code = 0.0 % 0-1.0 N NRBC%) NEUTROPHIL # (test code = NT#) 3.80 x10 3/uL 2.2-4.8 N IMMATURE GRANULOCYTE # (test 0.01 x10 3/uL 0-0.03 N code = IG#) LYMPHOCYTE # (test code = LY#) 2.03 x10 3/uL 1.3-2.9 N MONOCYTE # (test code = MO#) 0.58 x10 3/uL 0.3-0.8 N EOSINOPHIL # (test code = EO#) 0.05 x10 3/uL 0.0-0.2 N BASOPHIL # (test code = BA#) 0.04 x10 3/uL 0.0-0.1 N CBC W/AUTO [id number] 05:10:00 Test Item Value Reference Range Interpretation Comments WHITE BLOOD CELL (test code = 6.5 x10 3/uL 5.0-12.0 N WBC) RED BLOOD CELL (test code = 4.07 x10 6/uL 4.20-5.40 L RBC) HEMOGLOBIN (test code = HGB) 7.9 g/dL 12.0-16.0 L HEMATOCRIT (test code = HCT) 27.9 % 36.0-46.0 L MEAN CELL VOLUME (test code = 69 fL 81-99 L MCV) MEAN CELL HGB (test code = MCH) 19.4 pg 27-31 L MEAN CELL HGB CONCENTRATION 28.3 g/dL 33-37 L (test code = MCHC) RED CELL DISTRIBUTION WIDTH 18.3 % 11.5-15.5 H (test code = RDW) PLATELET COUNT (test code = 375 x10 3/uL 130-400 N PLT) MEAN PLATELET VOLUME (test code 9.8 fL 9.4-16.4 N = MPV) NEUTROPHIL % (test code = NT%) 58.3 % 43-65 N IMMATURE GRANULOCYTE % (test 0.2 % 0.0-2.0 N code = IG%) LYMPHOCYTE % (test code = LY%) 31.2 % 20.5-45.5 N MONOCYTE % (test code = MO%) 8.9 % 5.5-11.7 N EOSINOPHIL % (test code = EO%) 0.8 % 0.9-2.9 L BASOPHIL % (test code = BA%) 0.6 % 0.2-1.0 N NUCLEATED RBC % (test code = 0.0 % 0-1.0 N NRBC%) NEUTROPHIL # (test code = NT#) 3.80 x10 3/uL 2.2-4.8 N IMMATURE GRANULOCYTE # (test 0.01 x10 3/uL 0-0.03 N code = IG#) LYMPHOCYTE # (test code = LY#) 2.03 x10 3/uL 1.3-2.9 N MONOCYTE # (test code = MO#) 0.58 x10 3/uL 0.3-0.8 N EOSINOPHIL # (test code = EO#) 0.05 x10 3/uL 0.0-0.2 N BASOPHIL # (test code = BA#) 0.04 x10 3/uL 0.0-0.1 N [id number] 00:01:00 Test Item Value Reference Range Interpretation Comments GLUBED (test code = GLUBED) 72 MG/DL 74-106 L TOTAL IRON BINDING [id number] 19:16:00 Test Item Value Reference Range Interpretation Comments TOTAL IRON BINDING CAPACITY (test 398 ug/dL 265-497 N code = TIBC) [id number] 19:09:00 Test Item Value Reference Range Interpretation Comments IRON (test code = IRON) 21 ug/dL 37-170 L [id number] 11:33:00 Test Item Value Reference Range Interpretation Comments GLUBED (test code = GLUBED) 138 MG/DL 74-106 H COMPREHENSIVE METABOLIC [id number] 07:53:00 Test Item Value Reference Range Interpretation Comments SODIUM (test code = 141 mmol/L 137-145 N NA) POTASSIUM (test code = 3.6 mmol/L 3.4-5.0 N K) CHLORIDE (test code = 109 mmol/L 98-107 H CL) CARBON DIOXIDE (test 22 mmol/L 22-30 N code = CO2) GLUCOSE (test code = 76 mg/dL 74-106 N GLU) BLOOD UREA NITROGEN 6 mg/dL 7-17 L (test code = BUN) GLOMERULAR FILTRATION 99 >60 The es timated RATE (test code = GFR) glome rular filtration rate is compute d usingpatient ra ce, age (>18), sex, and serum creatinin e. If anyof the neede d data elements are mi ssing the Laboratory cannot compute an addie mation of the glomerul ar filtration rate . CREATININE (test code 0.7 mg/dL 0.5-1.0 N = CREAT) TOTAL PROTEIN (test 5.8 g/dL 6.3-8.2 L code = PROT) ALBUMIN (test code = 3.2 g/dL 3.5-5.0 L ALB) CALCIUM (test code = 7.7 mg/dL 8.4-10.2 L CA) BILIRUBIN TOTAL (test 0.3 mg/dL 0.2-1.3 N code = BILT) BILIRUBIN CONJUGATED 0 mg/dL 0-0.3 N ~~~~~~~ ~~~~~~~~~~~~~~ (test code = BILCON) ~~~~~~~ ~~~~~~~~~~~~~~ ~~~~~~~~~~~~~~~ ~~~CON JUGATED BILIRUB IN IS THE REPLACEMENT ASSAY FOR DIRECTBILIRUBIN .~~~~~ ~~~~~~~~~~~~~~~ ~~~~~~ ~~~~~~~~~~~~~~~ ~~~~~~ ~~~~~~~~~~~~~ BILIRUBIN UNCONJUGATED 0.2 mg/dL 0-1.1 N (test code = BILUNC) SGOT/AST (test code = 21 U/L 15-46 N AST) SGPT/ALT (test code = 14 U/L 13-69 N ALT) ALKALINE PHOSPHATASE 61 U/L 38-126 N (test code = ALKP) LIPID PROFILE (CORONARY RISK)2019-05-30 07:53:00 Test Item Value Reference Range Interpretation Comments TRIGLYCERIDES (test 77 mg/dL TRIGLYCE RIDES code = TRIG) REFERENCE RANGE:Normal: < 150 mg/dLBorderline High: 150-199 mg/dLHi gh: 200-499 mg/dLVe ry High: >=500 mg/ dL CHOLESTEROL (test 106 mg/dL CHOLESTERO L REFERENCE code = CHOL) RANGE:DESIRABLE : < 200 mg/dLBORDER LINE: 200-239 mg/dLHI GH: >=240 mg/dL HDL CHOLESTEROL (test 33 mg/dL 40-59 L code = HDL) LIPOPROTEIN LDL (test 65.54 mg/dL 32-99 N code = LDLC) CORONARY RISK FACTOR 3.21 CHOL/ HDL RISK MALE: (test code = RISK) 1/2 AVG 3 .43 FEMALE: 1/2 AVG 3.27 AV G 4.97 AVG 4.44 2X AVG 9.55 2X AVG 7.05 3X AVG 23.39 3X AVG 11.04~~~~~~~~~~ ~~~~~~ ~~~~~~~~~~~~~~~ ~~~~~~ ~~~~~~~~~~~~~~~ ~~~~~~ ~~National Cholesterol Edu cation (NCEP) Guidelines:~~~~ ~~~~~~ ~~~~~~~~~~~~~~~ ~~~~~~ ~~~~~~~~~~~~~~~ ~~~~~~ ~~~~~~~~ HDL Cholesterol<4 0mg/dL : HDL Cholester ol (Major risk fac tor for CHD)>60mg/d L: HDL Cholesterol (Ne gative risk factor for CHD)40-59mg/dL: Borderline Risk LDL Cholesterol<1 00mg/d L: Desirable LD L-C [id number] 0-159m g/dL: Borderlin e High Risk LDL-C [id number] 0-189m g/dL: High risk LDL-C concentration H DL-LDL Cholesterol is affected by a n umber of factors such as smoking, age an d sex.~~~~~~~~~~~ ~~~~~~ ~~~~~~~~~~~~~~~ ~~~~~~ ~~~~~~~~~~~~~~~ ~~~~~~ ~ CARDIAC ENZYMES [id number] 07:47:00 Test Item Value Reference Range Interpretation Comments TROPONIN-I < 0.012 ng/mL 0.012-0.033 L (test code = TROPI) Please be advised of the updated ref erence ranges for the new Chemistry instrumentation . VITROS TROPO GIOVANNA I CRITERIANORM AL PATIENT W/O CIRCULATING TNI: 0.012-0.033 ng/mLCIRCULATIN G TNI PRESENT: 0.034- 0.119 ng/mL(MAY BE AT RISK OF AMI)AMI DIAGNOS TIC CUTOFF: >/= 0.120 ng/mL~~~~~~~~~~ ~~~~~~~~~~~~ ~~~~~~~~~~~~~~~ ~~~~~~~~~~~~ ~~~~~~~~~~The u se of serial sampling and te sting protocol is are commended practice.An martita vated troponin level alone is often not suffi cient fordiagnosis of myocardial infarction. Tro ponin results obtaine d by different assay s may vary.Evaluation of the extent of myoca rdial damage based onincreas e of troponin would be valid only if similar methodology is used.~~~~~~~~~~ ~~~~~~~~~~~~ ~~~~~~~~~~~~~~~ ~~~~~~~~~~~~ ~~~~~~~~~~ COMPREHENSIVE METABOLIC [id number] 07:33:00 Test Item Value Reference Range Interpretation Comments SODIUM (test code = 141 mmol/L 137-145 N NA) POTASSIUM (test code = 3.6 mmol/L 3.4-5.0 N K) CHLORIDE (test code = 109 mmol/L 98-107 H CL) CARBON DIOXIDE (test 22 mmol/L 22-30 N code = CO2) GLUCOSE (test code = 76 mg/dL 74-106 N GLU) BLOOD UREA NITROGEN 6 mg/dL 7-17 L (test code = BUN) GLOMERULAR FILTRATION 99 >60 The es timated RATE (test code = GFR) glome rular filtration rate is compute d usingpatient ra ce, age (>18), sex, and serum creatinin e. If anyof the neede d data elements are mi ssing the Laboratory cannot compute an addie mation of the glomerul ar filtration rate . CREATININE (test code 0.7 mg/dL 0.5-1.0 N = CREAT) TOTAL PROTEIN (test 5.8 g/dL 6.3-8.2 L code = PROT) ALBUMIN (test code = 3.2 g/dL 3.5-5.0 L ALB) CALCIUM (test code = 7.7 mg/dL 8.4-10.2 L CA) BILIRUBIN TOTAL (test 0.3 mg/dL 0.2-1.3 N code = BILT) BILIRUBIN CONJUGATED 0 mg/dL 0-0.3 N ~~~~~~~ ~~~~~~~~~~~~~~ (test code = BILCON) ~~~~~~~ ~~~~~~~~~~~~~~ ~~~~~~~~~~~~~~~ ~~~CON JUGATED BILIRUB IN IS THE REPLACEMENT ASSAY FOR DIRECTBILIRUBIN .~~~~~ ~~~~~~~~~~~~~~~ ~~~~~~ ~~~~~~~~~~~~~~~ ~~~~~~ ~~~~~~~~~~~~~ BILIRUBIN UNCONJUGATED 0.2 mg/dL 0-1.1 N (test code = BILUNC) SGOT/AST (test code = 21 U/L 15-46 N AST) SGPT/ALT (test code = 14 U/L 13-69 N ALT) ALKALINE PHOSPHATASE 61 U/L 38-126 N (test code = ALKP) LIPID PROFILE (CORONARY RISK)2019-05-30 07:33:00 Test Item Value Reference Range Interpretation Comments TRIGLYCERIDES (test 77 mg/dL TRIGLYCE RIDES code = TRIG) REFERENCE RANGE:Normal: < 150 mg/dLBorderline High: 150-199 mg/dLHi gh: 200-499 mg/dLVe ry High: >=500 mg/ dL CHOLESTEROL (test code 106 mg/dL ANJEL STEROL REFERENCE = CHOL) RANGE:DESIRABLE : < 200 mg/dLBORDERLINE : 200-239 mg/dLHI GH: >=240 mg/dL HDL CHOLESTEROL (test 33 mg/dL 40-59 L code = HDL) LIPOPROTEIN LDL (test mg/dL 32-99 code = LDLC) CORONARY RISK FACTOR 3.21 CHOL/H DL RISK MALE: (test code = RISK) 1/2 AVG 3 .43 FEMALE: 1/2 AVG 3.27 AV G 4.97 AVG 4.44 2X AVG 9.55 2X AVG 7.05 3X AVG 23.39 3X AVG 11.04~~~~~~~~~~ ~~~~~~~ ~~~~~~~~~~~~~~~ ~~~~~~~ ~~~~~~~~~~~~~~~ ~~~~~~[facility] Education (NCEP ) Guidelines:~~~~ ~~~~~~~ ~~~~~~~~~~~~~~~ ~~~~~~~ ~~~~~~~~~~~~~~~ ~~~~~~~ ~~~~~ HDL Cholesterol<4 0mg/dL: HDL Cholesterol (Major risk factor for CHD)>60mg/dL: H DL Cholesterol (Ne gative risk factor for CHD)40-59mg/dL: Borderline Risk LDL Cholesterol<1 00mg/dL : Desirable LDL -C [id number] 0-159mg /dL: Borderline High Risk LDL-C [id number] 0-189mg /dL: High risk LDL-C concentration H DL-LDL Cholesterol is affected by a n umber of factors such as smoking, age an d sex.~~~~~~~~~~~ ~~~~~~~ ~~~~~~~~~~~~~~~ ~~~~~~~ ~~~~~~~~~~~~~~~ ~~~~~ COMPREHENSIVE METABOLIC [id number] 07:30:00 Test Item Value Reference Range Interpretation Comments SODIUM (test code = 141 mmol/L 137-145 N NA) POTASSIUM (test code = 3.6 mmol/L 3.4-5.0 N K) CHLORIDE (test code = 109 mmol/L 98-107 H CL) CARBON DIOXIDE (test 22 mmol/L 22-30 N code = CO2) GLUCOSE (test code = 76 mg/dL 74-106 N GLU) BLOOD UREA NITROGEN 6 mg/dL 7-17 L (test code = BUN) GLOMERULAR FILTRATION 99 >60 The es timated RATE (test code = GFR) glome rular filtration rate is compute d usingpatient ra ce, age (>18), sex, and serum creatinin e. If anyof the neede d data elements are mi ssing the Laboratory cannot compute an addie mation of the glomerul ar filtration rate . CREATININE (test code 0.7 mg/dL 0.5-1.0 N = CREAT) TOTAL PROTEIN (test 5.8 g/dL 6.3-8.2 L code = PROT) ALBUMIN (test code = 3.2 g/dL 3.5-5.0 L ALB) CALCIUM (test code = 7.7 mg/dL 8.4-10.2 L CA) BILIRUBIN TOTAL (test 0.3 mg/dL 0.2-1.3 N code = BILT) BILIRUBIN CONJUGATED 0 mg/dL 0-0.3 N ~~~~~~~ ~~~~~~~~~~~~~~ (test code = BILCON) ~~~~~~~ ~~~~~~~~~~~~~~ ~~~~~~~~~~~~~~~ ~~~CON JUGATED BILIRUB IN IS THE REPLACEMENT ASSAY FOR DIRECTBILIRUBIN .~~~~~ ~~~~~~~~~~~~~~~ ~~~~~~ ~~~~~~~~~~~~~~~ ~~~~~~ ~~~~~~~~~~~~~ BILIRUBIN UNCONJUGATED 0.2 mg/dL 0-1.1 N (test code = BILUNC) SGOT/AST (test code = 21 U/L 15-46 N AST) SGPT/ALT (test code = 14 U/L 13-69 N ALT) ALKALINE PHOSPHATASE 61 U/L 38-126 N (test code = ALKP) LIPID PROFILE (CORONARY RISK)2019-05-30 07:30:00 Test Item Value Reference Range Interpretation Comments TRIGLYCERIDES (test code = TRIG) mg/dL CHOLESTEROL (test code = CHOL) mg/dL HDL CHOLESTEROL (test code = HDL) mg/dL 40-59 LIPOPROTEIN LDL (test code = LDLC) mg/dL 32-99 CORONARY RISK FACTOR (test code = RISK) PROTHROMBIN [id number] 07:26:00 Test Item Value Reference Range Interpretation Comments PROTHROMBIN TIME 12.6 SECONDS 9.2-12.1 H PATIENT (test code = PTP) INTERNATIONAL NORMAL 1.1 The INR is to be used RATIO (test code = only for monitoring INR) ORAL ANTICOAGULANTTH ERAPY. Indication INR Value1. Prophylaxis/casey atment of: Venous Thrombosis, Pul monary Embolism 2.0 - 3.02. Prevention of s ystemic embolism from: Tissue heart valves 2. 0 - 3.0 Acute myocardia l infarction (to present systemic emboli sm)* 2.0 - 3.0 Valvu lar heart disease 2 .0 - 3.0 Atrial fibrillation 2. 0 - 3.03. Mechanica l prosthetic valv es (high risk) 2.5 - 3.5 * If oral anticoagulant t herapy is elected to preventrecurren t myocardial infa rction, an INR of 2.5-3 .5 isrecommended, consistent with Food and Drug Administrationr ecommen dations. THROMBOPLASTIN TIME [id number] 07:26:00 Test Item Value Reference Range Interpretation Comments THROMBOPLASTIN TIME 19.2 SECONDS 23.4-37.0 L Therape utic Range PARTIAL (test code = for Hep amy PTT) EFFECTIVE Heparin IU/mL a PTT Seconds0.3 64.3 0.7 88.8 CBC W/AUTO [id number] 06:55:00 Test Item Value Reference Range Interpretation Comments WHITE BLOOD CELL (test code = 6.4 x10 3/uL 5.0-12.0 N WBC) RED BLOOD CELL (test code = 3.96 x10 6/uL 4.20-5.40 L RBC) HEMOGLOBIN (test code = HGB) 7.5 g/dL 12.0-16.0 L HEMATOCRIT (test code = HCT) 27.4 % 36.0-46.0 L MEAN CELL VOLUME (test code = 69 fL 81-99 L MCV) MEAN CELL HGB (test code = MCH) 18.9 pg 27-31 L MEAN CELL HGB CONCENTRATION 27.4 g/dL 33-37 L (test code = MCHC) RED CELL DISTRIBUTION WIDTH 18.4 % 11.5-15.5 H (test code = RDW) PLATELET COUNT (test code = 351 x10 3/uL 130-400 N PLT) MEAN PLATELET VOLUME (test code 9.9 fL 9.4-16.4 N = MPV) NEUTROPHIL % (test code = NT%) 57.7 % 43-65 N IMMATURE GRANULOCYTE % (test 0.2 % 0.0-2.0 N code = IG%) LYMPHOCYTE % (test code = LY%) 34.6 % 20.5-45.5 N MONOCYTE % (test code = MO%) 6.4 % 5.5-11.7 N EOSINOPHIL % (test code = EO%) 0.5 % 0.9-2.9 L BASOPHIL % (test code = BA%) 0.6 % 0.2-1.0 N NUCLEATED RBC % (test code = 0.0 % 0-1.0 N NRBC%) NEUTROPHIL # (test code = NT#) 3.72 x10 3/uL 2.2-4.8 N IMMATURE GRANULOCYTE # (test 0.01 x10 3/uL 0-0.03 N code = IG#) LYMPHOCYTE # (test code = LY#) 2.23 x10 3/uL 1.3-2.9 N MONOCYTE # (test code = MO#) 0.41 x10 3/uL 0.3-0.8 N EOSINOPHIL # (test code = EO#) 0.03 x10 3/uL 0.0-0.2 N BASOPHIL # (test code = BA#) 0.04 x10 3/uL 0.0-0.1 N PLATELET ESTIMATE (test code = ADEQUATE ADEQUATE PLTEST) PLATELET MORPHOLOGY (test code NORMAL NORMAL = PLTMORPH) DIFFERENTIAL [id number] 06:55:00 Test Item Value Reference Range Interpretation Comments POLYCHROMASIA (test code = POLC) 1+ NONE SEEN A POIKILOCYTOSIS (test code = POIK) 1+ NONE SEEN A ANISOCYTOSIS (test code = ANISO) 3+ NONE SEEN A MICROCYTOSIS (test code = MICR) 3+ NONE SEEN A OVALOCYTES (test code = OVAL) 1+ NONE SEEN A HGBA1C - GLYCOSYLATED [id number] 06:54:00 Test Item Value Reference Range Interpretation Comments GLYCOSYLATED 6.1 % 0-5.9 H Current guideli agustin recommend HEMOGLOBIN (HA1C) a treatmen t goal of <7% (test code = GLYHGB) fordiab etic patients. A1c may be overesti mated in diabeticpatient s exhibiting poor control an d who are alsoheterozygou s or homozygous for HgbS or HgbC. Totalglycohemog lobin is a better indicato r of diabetic control inpatie nts with these hemoglobi n variants. CBC W/AUTO [id number] 06:32:00 Test Item Value Reference Range Interpretation Comments WHITE BLOOD CELL (test code = 6.4 x10 3/uL 5.0-12.0 N WBC) RED BLOOD CELL (test code = 3.96 x10 6/uL 4.20-5.40 L RBC) HEMOGLOBIN (test code = HGB) 7.5 g/dL 12.0-16.0 L HEMATOCRIT (test code = HCT) 27.4 % 36.0-46.0 L MEAN CELL VOLUME (test code = 69 fL 81-99 L MCV) MEAN CELL HGB (test code = MCH) 18.9 pg 27-31 L MEAN CELL HGB CONCENTRATION 27.4 g/dL 33-37 L (test code = MCHC) RED CELL DISTRIBUTION WIDTH 18.4 % 11.5-15.5 H (test code = RDW) PLATELET COUNT (test code = 351 x10 3/uL 130-400 N PLT) MEAN PLATELET VOLUME (test code 9.9 fL 9.4-16.4 N = MPV) NEUTROPHIL % (test code = NT%) 57.7 % 43-65 N IMMATURE GRANULOCYTE % (test 0.2 % 0.0-2.0 N code = IG%) LYMPHOCYTE % (test code = LY%) 34.6 % 20.5-45.5 N MONOCYTE % (test code = MO%) 6.4 % 5.5-11.7 N EOSINOPHIL % (test code = EO%) 0.5 % 0.9-2.9 L BASOPHIL % (test code = BA%) 0.6 % 0.2-1.0 N NUCLEATED RBC % (test code = 0.0 % 0-1.0 N NRBC%) NEUTROPHIL # (test code = NT#) 3.72 x10 3/uL 2.2-4.8 N IMMATURE GRANULOCYTE # (test 0.01 x10 3/uL 0-0.03 N code = IG#) LYMPHOCYTE # (test code = LY#) 2.23 x10 3/uL 1.3-2.9 N MONOCYTE # (test code = MO#) 0.41 x10 3/uL 0.3-0.8 N EOSINOPHIL # (test code = EO#) 0.03 x10 3/uL 0.0-0.2 N BASOPHIL # (test code = BA#) 0.04 x10 3/uL 0.0-0.1 N CBC W/AUTO [id number] 06:32:00 Test Item Value Reference Range Interpretation Comments WHITE BLOOD CELL (test code = 6.4 x10 3/uL 5.0-12.0 N WBC) RED BLOOD CELL (test code = 3.96 x10 6/uL 4.20-5.40 L RBC) HEMOGLOBIN (test code = HGB) 7.5 g/dL 12.0-16.0 L HEMATOCRIT (test code = HCT) 27.4 % 36.0-46.0 L MEAN CELL VOLUME (test code = 69 fL 81-99 L MCV) MEAN CELL HGB (test code = MCH) 18.9 pg 27-31 L MEAN CELL HGB CONCENTRATION 27.4 g/dL 33-37 L (test code = MCHC) RED CELL DISTRIBUTION WIDTH 18.4 % 11.5-15.5 H (test code = RDW) PLATELET COUNT (test code = 351 x10 3/uL 130-400 N PLT) MEAN PLATELET VOLUME (test code 9.9 fL 9.4-16.4 N = MPV) NEUTROPHIL % (test code = NT%) 57.7 % 43-65 N IMMATURE GRANULOCYTE % (test 0.2 % 0.0-2.0 N code = IG%) LYMPHOCYTE % (test code = LY%) 34.6 % 20.5-45.5 N MONOCYTE % (test code = MO%) 6.4 % 5.5-11.7 N EOSINOPHIL % (test code = EO%) 0.5 % 0.9-2.9 L BASOPHIL % (test code = BA%) 0.6 % 0.2-1.0 N NUCLEATED RBC % (test code = 0.0 % 0-1.0 N NRBC%) NEUTROPHIL # (test code = NT#) 3.72 x10 3/uL 2.2-4.8 N IMMATURE GRANULOCYTE # (test 0.01 x10 3/uL 0-0.03 N code = IG#) LYMPHOCYTE # (test code = LY#) 2.23 x10 3/uL 1.3-2.9 N MONOCYTE # (test code = MO#) 0.41 x10 3/uL 0.3-0.8 N EOSINOPHIL # (test code = EO#) 0.03 x10 3/uL 0.0-0.2 N BASOPHIL # (test code = BA#) 0.04 x10 3/uL 0.0-0.1 N [id number] 03:13:00 Test Item Value Reference Range Interpretation Comments MAGNESIUM (test code = MAG) 1.9 mg/dL 1.6-2.3 N CARDIAC ENZYMES [id number] 03:13:00 Test Item Value Reference Range Interpretation Comments TROPONIN-I < 0.012 ng/mL 0.012-0.033 L (test code = TROPI) Please be advised of the updated ref erence ranges for the new Chemistry instrumentation . VITROS TROPO GIOVANNA I CRITERIANORM AL PATIENT W/O CIRCULATING TNI: 0.012-0.033 ng/mLCIRCULATIN G TNI PRESENT: 0.034- 0.119 ng/mL(MAY BE AT RISK OF AMI)AMI DIAGNOS TIC CUTOFF: >/= 0.120 ng/mL~~~~~~~~~~ ~~~~~~~~~~~~ ~~~~~~~~~~~~~~~ ~~~~~~~~~~~~ ~~~~~~~~~~The u se of serial sampling and te sting protocol is are commended practice.An martita vated troponin level alone is often not suffi cient fordiagnosis of myocardial infarction. Tro ponin results obtaine d by different assay s may vary.Evaluation of the extent of myoca rdial damage based onincreas e of troponin would be valid only if similar methodology is used.~~~~~~~~~~ ~~~~~~~~~~~~ ~~~~~~~~~~~~~~~ ~~~~~~~~~~~~ ~~~~~~~~~~ [id number] 03:01:00 Test Item Value Reference Range Interpretation Comments MAGNESIUM (test code = MAG) 1.9 mg/dL 1.6-2.3 N CARDIAC ENZYMES [id number] 03:01:00 Test Item Value Reference Range Interpretation Comments TROPONIN-I (test code = TROPI) ng/mL 0.012-0.033 - SP FLUORO [id number] 22:47:00 FAX: Garfield Sahnks [phone] [place]: IR St: ADM Name: MILVIA HUANG [facility] IR : 1980 Age/S: 39/F [address] Unit #: [id number] Loc: [address] [address] Phys: Garfield Gómez [facility]: [id number] Dis Date: Status: ADM IN PHONE #: Exam Date: 05/29/20192045 FAX #: Reason: EXAMS: CPT CODE: [id number] SP FLUORO NDL [id number] EXAM: FLUOROSCOPIC GUIDANCE CLINICAL HISTORY: CVA TECHNIQUE: Fluoroscopic guidance was provided for cerebral angiogram. FINDINGS: Fluoroscopic guidance was provided for cerebral angiogram. Fluoroscopy time: 14.1 minutes Fluoroscopy dose: 73.81 mGy IMPRESSION: Fluoroscopic guidance was provided for cerebral angiogram. I was not physically present for this procedure. Please see dedicated surgical report for further details. LOCATION: B2 at 2247 Reported and signed by: Diamond Wynne MD CC: Garfield Gómez MD Technologist: JOEY TIJERINA Trnscrd Date/Time/By: 05/29/2019 (9894) : By: 16 PAGE 1 Signed Report FAX: Gafrield Shanks [phone] [place]: IR St: ADM Name: MILVIA HUANG [facility] : 1980 Age/S: 39/F [address] Unit #: [id number] Loc: [place] [address] Phys:Garfield Gómez MD Acct: [id number] Dis Date: Status: ADM IN PHONE #: Exam Date: 05/29/20192045 FAX #: Reason: EXAMS: CPT CODE: [id number] SP FLUORO NDL [id number] <Continued> Orig Print D/T: S: 05/29/2019 (6443) PAGE 2 Signed [id number] 22:44:00 Test Item Value Reference Range Interpretation Comments GLUBED (test code = GLUBED) 73 MG/DL 74-106 L - MRI [id number] 20:51:00 [place]: St: [facility] 1980 Age[facility]S: 39[facility]F [address] Unit #: [id number] Loc: [place] [address] Phys: Giorgio Noel DO Acct: [id number] Dis Date: Status: ADM IN PHONE #: [phone] Exam Date: 05/29/20192026 FAX #: [phone] Reason: weakness EXAMS: CPT CODE: [id number] MRI ELVO [id number] EXAM: MRI BRAIN WITHOUT CONTRAST INDICATION: WEAKNESS COMPARISON: CTA dated May 29, 2019 TECHNIQUE: Multiplanar, multisequence MRI of the brain was obtained without administration of intravenous contrast. IV contrast: None FINDINGS: There is a large area of restricted diffusioninvolving the left MCA distribution consistent with with corresponding hyperintense T2 changes consistent with subacute ischemia. The ventricles are normal in size and shape with no midline shift or mass effect. The basal cisterns are patent. The posterior fossa and 4th ventricle are normal. No intracranial hemorrhage. Intracranial flow voids are normal. The paranasal sinuses and mastoid air cells are clear. No calvarial lesions are identified. The orbits and globes are unremarkable. IMPRESSION: Large area of restricted diffusion involving the left MCA distribution with corresponding hyperintenseT2 changes consistent with subacute ischemia. No hemorrhagic transformation. LOCATION: A 1 Electr onically Signed by Diamond Wynne MD on 05/29/2019 at 2050 Reported and signed by: Diamond Wynne MD CC: Technologist: Kayla Russell Trnscrd Date/Time/By: 05/29/2019 (2050) : By: [email or web address] PAGE 1 Signed Report [place]: St: ADM ------ [facility] [place] [facility] 1980 Age/S: 39/F [address] Unit #: [id number] Loc: [place] [address] Phys: SadieGiorgio DO Acct: [id number] Dis Date: Status: ADM IN PHONE #: [phone] Exam Date: 05/29/20192026 FAX #: [phone] Reason: weakness EXAMS: CPTCODE: [id number] MRI ELVO [id number] <Continued> Orig Print D/T: S: 05/29/2019 (2053) PAGE 2 Signed ReportCBC W/AUTO [id number] 18:08:00 Test Item Value Reference Range Interpretation Comments WHITE BLOOD CELL (test code = 6.4 K/MM3 3.8-9.8 N WBC) RED BLOOD CELL (test code = 4.27 M/MM3 3.58-4.97 N RBC) HEMOGLOBIN (test code = HGB) 8.2 G/DL 11.2-14.9 L HEMATOCRIT (test code = HCT) 29.3 % 33.2-43.5 L MEAN CELL VOLUME (test code = 69 fL 80.7-99.1 L MCV) MEAN CELL HGB (test code = MCH) 19.2 pg 27.0-34.1 L MEAN CELL HGB CONCETRATION 28.0 % 32.2-35.7 L (test code = MCHC) RED CELL DISTRIBUTION WIDTH 18.6 % 12.1-15.2 H (test code = RDW) PLATELET COUNT (test code = 145 K/MM3 129-368 N PLT) MEAN PLATELET VOLUME (test code 9.5 fl 7.4-10.4 N = MPV) NEUTROPHIL % (test code = NT%) 63.3 % 43-75 N IMMATURE GRANULOCYTE % (test 0.2 % 0.0-2.0 N code = IG%) LYMPHOCYTE % (test code = LY%) 29.0 % 14-44 N MONOCYTE % (test code = MO%) 6.7 % 4-13 N EOSINOPHIL % (test code = EO%) 0.3 % 0-6 N BASOPHIL % (test code = BA%) 0.5 % 0-2 N NUCLEATED RBC % (test code = 0.0 % 0-1.0 N NRBC%) NEUTROPHIL # (test code = NT#) 4.04 K/mm3 2.0-7.6 N IMMATURE GRANULOCYTE # (test 0.01 x10 3/uL 0-0.03 N code = IG#) LYMPHOCYTE # (test code = LY#) 1.85 K/mm3 1.0-3.8 N MONOCYTE # (test code = MO#) 0.43 K/mm3 0.1-0.8 N EOSINOPHIL # (test code = EO#) 0.02 K/mm3 0.0-0.2 N BASOPHIL # (test code = BA#) 0.03 K/mm3 0.0-0.2 N NUCLEATED RBC # (test code = 0.00 K/mm3 0.0-0.1 N NRBC#) DIFFERENTIAL [id number] 18:08:00 Test Item Value Reference Range Interpretation Comments RBC MORPHOLOGY REQUIRED (test code = ABNORMAL RBCM) HYPOCHROMIA (test code = HYPO) SLIGHT NONE POIKILOCYTOSIS (test code = POIK) FEW NONE ANISOCYTOSIS (test code = ANISO) MODERATE NONE MICROCYTOSIS (test code = MICR) MODERATE NONE PLATELET ESTIMATE (test code = ADEQUATE ADEQUATE PLTEST) PLATELET MORPHOLOGY (test code = NORMAL NORMAL PLTMORPH) PROTHROMBIN [id number] 17:52:00 Test Item Value Reference Range Interpretation Comments PROTHROMBIN TIME 10.6 SECONDS 9.6-11.6 N PATIENT (test code = PTP) INTERNATIONAL NORMAL 1.0 0.8-1.1 N The INR is to be RATIO (test code = used only for INR) monitoring oral anticoagulantth erap y. INDICATION I NR VALUE ---- ---- ---- -------1. Prophylaxis, de ep venous thrombos is, including high risk surgery. 2.0 - 3.0 2. Prophylaxis, deep venous thrombosis, hip surgery, treatm ent for deep venous thrombosis or pulmonary prevention of systemic emboli sm in patients wit h valvular heart disease, atrial fibrillation, tissue heart va lve, or acute myocar dial infarction. 2. 0 - 3.0 3. Pipefitter Helper al prosthesis hear t valves, recurre nt systemic emboli sm. 3.0 - 4.5 PTT [id number] 17:52:00 Test Item Value Reference Range Interpretation Comments PTT ACTIVATED (test code = APTT) 22.9 SECONDS 22.0-33.0 N - CT ANGIO [id number] 17:27:00 Patient Name: MILVIA HUANG Unit No: [id number] EXAMS: CPT CODE: [id number] CT ANGIO HEAD [address] Location: T 18 CTA neck, 05/29/19 TECHNIQUE: CTA examination of the neck with contrast using vascular protocol performed on a helical scanner. Scanning conducted using ultrathin contiguous 0.6mm axialslice technique from aortic arch through skull base. Patient given 100 mL of Isovue 360 for contrast. High resolution sagittal and coronal reformatted images acquired on the PAC workstation. 3D volume r endering images also acquired by interpreting radiologist using VITREA software provided on the PACsystem . The examination was conducted on an updated helical CT scanner utilizing low-dose radiationtechnique. Automatic exposure technique was utilized to reduce radiation dose CLINICAL HISTORY: Headache, moderate degree with alteration in mental status. FINDINGS: No findings of concern for vasculitis. There is an intraluminal filling defect fairly high concern for intraluminal thrombus formation at the origin of the left ICA is identified on images 214 through 225 of series 2 measuring approximately a centimeter in longitudinal length seen centered along the posterior wall the origin left ICA. This results in high-grade stenosis of the left ICA. Finding also identified on coronal imaging on image #47. Neuro- interventional consultation is advised without significant tandem lesion or intraluminal thrombus formation more distally. No measurable right carotid stenosis or compromise of the vertebral arteries. No dissection. Normal branching pattern of the vessels arising from the aortic arch. No significant stenosis of the prebulbar portion of either carotid artery is seen. The brachiocephalicartery and subclavian arteries exhibit normal enhancement. No significant atherosclerotic irregular ulcerative plaque formation is seen. IMPRESSION: Filling defect in the very proximal left ICA of concern for acute intraluminal thrombus formation measuring approximately a centimeter in length and resulting in high-grade stenosis. No measurable right carotid stenosis Normal enhancement of the vertebral arteries Neurology interventional consultation is advised Location: T 18 CTA of the brain 05/29/19 [facility] NAME: MILVIA HUANG [address] PHYS: [place] [address] : 1980 AGE: 39 SEX: F LOC: Z.ERS PHONE #: [phone] EXAM DATE:05/29/2019 STATUS: REG ER FAX #: [phone] RAD #: D/C DT PAGE 1 Signed Report (CONTINUED) Patient Name: MILVIA HUANG Unit No: [id number] EXAMS: CPT CODE: [id number] CT ANGIO HEAD [address] (Continued) TECHNIQUE: CTA examination of the pudivp-cq-Jknvob was performed on a helical scanner with patient given 100 mL of Isovue 360. Vascular protocol performed. Ultrathin slice axial images acquired from skull base through vertex of brain utilizing contiguous 0.6mm slice thickness with coronal and sagittal reformatted images acquired on the PAC workstation. Post contrast only images acquired. 3D reformatted images also acquired of the intracranial vessels using VITREA software by the interpreting radiologist . The examination was performed on an updated helical CT scanner utilizing low-dose radiation technique. Automatic exposure technique was utilized to reduce radiation dose. CLINICAL HISTORY: Moderate headache with alteration in mental status FINDINGS: Do not see any findings suggestive of an aneurysm or vascular malformation. No discrete area of hemodynamically significant intracranial stenosis is seen. No large branch occlusion is seen. No findings suggestive of vertebro basilar insufficiency is seen. No space occupying process is seen. No midline shift or abnormal enhancement is seen. No intracranial hemorrhage is seen with assessment for subarachnoid hemorrhage limited since post contrast images only acquired. IMPRESSION: Normal CTA examination iqfqce-tu-Uwydcu Findings have been reviewed with Dr. Villanueva in the emergency room on 05/29/19 at 5:25 PM at 7034 Reported and signed by: Tavon Hill MD CC: Rosa Villanueva MD Technologist: KIANA ARIZMENDI RT(R) CTDI: DLP: Trnscrpt: 05/29/2019 (8250) [email or web address] [facility] NAME: MILVIA HUANG [place] PHYS: [place] [address] : 1980 AGE: 39 SEX: F LOC: TASHA PHONE #: [phone] EXAM DATE: 05/29/2019 STATUS: REG ER FAX #: [phone] RAD #: D/C DT PAGE 2 Signed Report Patient Name: MILVIA HUANG Unit No: [id number] EXAMS: CPT CODE: [id number] CT ANGIO HEAD [address] (Continued) Orig Print D/T: S: 05/29/2019 (1731) [facility] NAME: MILVIA HUANG [place] PHYS: [place] [address] : 1980 AGE: 39 [facility]: [id number]: TASHA PHONE #: [phone] EXAM DATE: 05/29/2019 STATUS: REG ER FAX #: [phone] RAD #: D/CDT PAGE 3 Signed Report- CT ANGIO NECK W WO [id number] 17:27:00 Patient Name: MILVIA HUANG Unit No: [id number] EXAMS: CPT CODE: [id number] CT ANGIO [place]ECK W [place] CONT [id number] Location: T 18 CTA neck, 05/29/19 TECHNIQUE: CTA examination of the neck with contrast using vascular protocol performed on a helical scanner. Scanning conducted using ultrathin contiguous 0.6mm axial slice technique from aortic arch through skull base. Patient given 100 mL of Isovue 360 for contrast. High resolution sagittal and coronal reformatted images acquired on the PAC workstation. 3D volume rendering images also acquired by interpreting radiologist using VITREA software provided on the PAC system . The examination was conducted on an updated helical CT scanner utilizing low-dose radiation technique. Automatic exposure technique was utilized to reduce radiation dose CLINICAL HISTORY: Headache, moderate degree with alteration in mental status. FINDINGS: No findings of concern forvasculitis. There is an intraluminal filling defect fairly high concern for intraluminal thrombus formation at the origin of the left ICA is identified on images 214 through 225 of series 2 measuring approximately a centimeter in longitudinal length seen centered along the posterior wall the origin left ICA. This results in high-grade stenosis of the left ICA. Finding also identified on coronal imaging on image #47. Neuro- interventional consultation is advised without significant tandem lesion or intraluminal thrombus formation more distally. No measurable right carotid stenosis or compromise of the vertebral arteries. No dissection. Normal branching pattern of the vessels arising from the aorticarch. No significant stenosis of the prebulbar portion of either carotid artery is seen. The brachiocephalic artery and subclavian arteries exhibit normal enhancement. No significant atherosclerotic irregular ulcerative plaque formation is seen. IMPRESSION: Filling defect in the very proximal left ICAof concern for acute intraluminal thrombus formation measuring approximately a centimeter in length and resulting in high-grade stenosis. No measurable right carotid stenosis Normal enhancement of the vertebral arteries Neurology interventional consultation is advised Location: T 18 CTA of the brain 05/29/19 [facility] NAME: MILVIA HUANG [address] [address] PHYS: [email or web address] - [place] [address] : 1980 AGE: 39 SEX: F LOC: TASHA PHONE #: [phone] EXAM DATE: 05/29/2019 STATUS: REG ER FAX #: [phone] RAD #: D/C DT PAGE 1 Signed Report (CONTINUED)Patient Name: MILVIA HUANG Unit No: [id number] EXAMS: CPT CODE: [id number] CT ANGIO NECK W [place] CONT [address] (Continued) TECHNIQUE: CTA examination of the lvooma-ta-Mbbzyh was performed on a helical scanner with patient given 100 mL of Isovue 360. Vascular protocol performed. Ultrathin slice axial images acquired from skull base through vertex of brain utilizing contiguous 0.6mm slice thickness withcoronal and sagittal reformatted images acquired on the PAC workstation. Post contrast only images acquired. 3D reformatted images also acquired of the intracranial vessels using VITREA software by theinterpreting radiologist . The examination was performed on an updated helical CT scanner utilizing low-dose radiation technique. Automatic exposure technique was utilized to reduce radiation dose. CLINICAL HISTORY: Moderate headache with alteration in mental status FINDINGS: Do not see any findings suggestive of an aneurysm or vascular malformation. No discrete area of hemodynamically significant intracranial stenosis is seen. No large branch occlusion is seen. No findings suggestive of vertebro basilar insufficiency is seen. No space occupying process is seen. No midline shift or abnormal enhancem ent is seen. No intracranial hemorrhage is seen with assessment for subarachnoid hemorrhage limited since post contrast images only acquired. IMPRESSION: Normal CTA examination [id number]-js-Scekuj Findings have been reviewed with Dr. Villanueva in the emergency room on 05/29/19 at 5:25 PM at 1727 Reported and signed by: Tavon Hill MD CC: Rosa Villanueva MD Technologist: KIANA ARIZMENDI RT(R) CTDI: DLP: Trnscrpt: 05/29/2019 (1727) [email or web address] [facility] NAME: MILVIA HUANG [address] [address] PHYS: SIMELI. - [place] [address] : 1980 AGE: 39 SEX: F LOC: Z.ERS PHONE #: [phone] EXAM DATE: 05/29/2019 STATUS: REG ER FAX #: [phone] RAD #: D/C DT PAGE 2 Signed Report Patient Name: MILVIA HUANG Unit No: [id number] EXAMS: CPT CODE: [id number] CT ANGIO NECKW [place] CONT [address] (Continued) Orig Print D/T: S: 05/29/2019 (1731) [facility] NAME: DORENE [address] PHYS: [place] [address] : 1980 AGE: 39 SEX: FACCT NO: [id number] LOC: [place] PHONE #: [phone] EXAM DATE: 05/29/2019 STATUS: REG ER FAX #: [phone] RAD #: D/C DT PAGE 3 Signed ReportBASIC METABOLIC [id number] 16:18:00 Test Item Value Reference Range Interpretation Comments SODIUM (test code = 140 MMOL/L 137-145 N NA) POTASSIUM (test code = 3.7 MMOL/L 3.5-5.1 N K) CHLORIDE (test code = 114 MMOL/L 98-107 H CL) CARBON DIOXIDE (test 20 MMOL/L 22-30 L code = CO2) GLUCOSE (test code = 96 MG/DL 74-106 N GLU) BLOOD UREA NITROGEN 8 MG/DL 7-17 N (test code = BUN) GLOMERULAR FILTRATION > 60 Report ing units: RATE (test code = GFR) ml/mi n/1.73 m2 (Modified MDRD Formula)Referen ce Range: > or = 6 0 ml/min/1.73 m2 CREATININE (test code 0.60 MG/DL 0.52-1.04 N = CREAT) CALCIUM (test code = 8.6 MG/DL 8.4-10.2 N CA) HCG SERUM [id number] 16:18:00 Test Item Value Reference Range Interpretation Comments HCG SERUM QUAL (test code = HCGQL) NEGATIVE NEGATIVE A BASIC METABOLIC [id number] 16:17:00 Test Item Value Reference Range Interpretation Comments SODIUM (test code = 140 MMOL/L 137-145 N NA) POTASSIUM (test code = 3.7 MMOL/L 3.5-5.1 N K) CHLORIDE (test code = 114 MMOL/L 98-107 H CL) CARBON DIOXIDE (test 20 MMOL/L 22-30 L code = CO2) GLUCOSE (test code = 96 MG/DL 74-106 N GLU) BLOOD UREA NITROGEN 8 MG/DL 7-17 N (test code = BUN) GLOMERULAR FILTRATION > 60 Report ing units: RATE (test code = GFR) ml/mi n/1.73 m2 (Modified MDRD Formula)Referen ce Range: > or = 6 0 ml/min/1.73 m2 CREATININE (test code 0.60 MG/DL 0.52-1.04 N = CREAT) CALCIUM (test code = 8.6 MG/DL 8.4-10.2 N CA) HCG SERUM [id number] 16:17:00 Test Item Value Reference Range Interpretation Comments HCG SERUM QUAL (test code = HCGQL) NEGATIVE CBC W/AUTO [id number] 16:03:00 Test Item Value Reference Range Interpretation Comments WHITE BLOOD CELL (test code = 6.4 K/MM3 3.8-9.8 N WBC) RED BLOOD CELL (test code = 4.27 M/MM3 3.58-4.97 N RBC) HEMOGLOBIN (test code = HGB) 8.2 G/DL 11.2-14.9 L HEMATOCRIT (test code = HCT) 29.3 % 33.2-43.5 L MEAN CELL VOLUME (test code = 69 fL 80.7-99.1 L MCV) MEAN CELL HGB (test code = MCH) 19.2 pg 27.0-34.1 L MEAN CELL HGB CONCETRATION 28.0 % 32.2-35.7 L (test code = MCHC) RED CELL DISTRIBUTION WIDTH 18.6 % 12.1-15.2 H (test code = RDW) PLATELET COUNT (test code = 145 K/MM3 129-368 N PLT) MEAN PLATELET VOLUME (test code 9.5 fl 7.4-10.4 N = MPV) NEUTROPHIL % (test code = NT%) 63.3 % 43-75 N IMMATURE GRANULOCYTE % (test 0.2 % 0.0-2.0 N code = IG%) LYMPHOCYTE % (test code = LY%) 29.0 % 14-44 N MONOCYTE % (test code = MO%) 6.7 % 4-13 N EOSINOPHIL % (test code = EO%) 0.3 % 0-6 N BASOPHIL % (test code = BA%) 0.5 % 0-2 N NUCLEATED RBC % (test code = 0.0 % 0-1.0 N NRBC%) NEUTROPHIL # (test code = NT#) 4.04 K/mm3 2.0-7.6 N IMMATURE GRANULOCYTE # (test 0.01 x10 3/uL 0-0.03 N code = IG#) LYMPHOCYTE # (test code = LY#) 1.85 K/mm3 1.0-3.8 N MONOCYTE # (test code = MO#) 0.43 K/mm3 0.1-0.8 N EOSINOPHIL # (test code = EO#) 0.02 K/mm3 0.0-0.2 N BASOPHIL # (test code = BA#) 0.03 K/mm3 0.0-0.2 N NUCLEATED RBC # (test code = 0.00 K/mm3 0.0-0.1 N NRBC#) DIFFERENTIAL [id number] 16:03:00 Test Item Value Reference Range Interpretation Comments RBC MORPHOLOGY REQUIRED (test code = RBCM) PLATELET ESTIMATE (test code = PLTEST) ADEQUATE PLATELET MORPHOLOGY (test code = NORMAL PLTMORPH) CBC W/AUTO [id number] 16:03:00 Test Item Value Reference Range Interpretation Comments WHITE BLOOD CELL (test code = 6.4 K/MM3 3.8-9.8 N WBC) RED BLOOD CELL (test code = 4.27 M/MM3 3.58-4.97 N RBC) HEMOGLOBIN (test code = HGB) 8.2 G/DL 11.2-14.9 L HEMATOCRIT (test code = HCT) 29.3 % 33.2-43.5 L MEAN CELL VOLUME (test code = 69 fL 80.7-99.1 L MCV) MEAN CELL HGB (test code = MCH) 19.2 pg 27.0-34.1 L MEAN CELL HGB CONCETRATION 28.0 % 32.2-35.7 L (test code = MCHC) RED CELL DISTRIBUTION WIDTH 18.6 % 12.1-15.2 H (test code = RDW) PLATELET COUNT (test code = 145 K/MM3 129-368 N PLT) MEAN PLATELET VOLUME (test code 9.5 fl 7.4-10.4 N = MPV) NEUTROPHIL % (test code = NT%) 63.3 % 43-75 N IMMATURE GRANULOCYTE % (test 0.2 % 0.0-2.0 N code = IG%) LYMPHOCYTE % (test code = LY%) 29.0 % 14-44 N MONOCYTE % (test code = MO%) 6.7 % 4-13 N EOSINOPHIL % (test code = EO%) 0.3 % 0-6 N BASOPHIL % (test code = BA%) 0.5 % 0-2 N NUCLEATED RBC % (test code = 0.0 % 0-1.0 N NRBC%) NEUTROPHIL # (test code = NT#) 4.04 K/mm3 2.0-7.6 N IMMATURE GRANULOCYTE # (test 0.01 x10 3/uL 0-0.03 N code = IG#) LYMPHOCYTE # (test code = LY#) 1.85 K/mm3 1.0-3.8 N MONOCYTE # (test code = MO#) 0.43 K/mm3 0.1-0.8 N EOSINOPHIL # (test code = EO#) 0.02 K/mm3 0.0-0.2 N BASOPHIL # (test code = BA#) 0.03 K/mm3 0.0-0.2 N NUCLEATED RBC # (test code = 0.00 K/mm3 0.0-0.1 N NRBC#) DIFFERENTIAL [id number] 16:03:00 Test Item Value Reference Range Interpretation Comments RBC MORPHOLOGY REQUIRED (test code = RBCM) PLATELET ESTIMATE (test code = PLTEST) ADEQUATE PLATELET MORPHOLOGY (test code = NORMAL PLTMORPH) Notes Date/Time Note Provider Source 2019-06-01 10:42:00-00:00 [id number] [facility] [address] [place] [address] PATIENT NAME: MILVIA HUANG ADMIT DATE: ACCOUNT NO: [id number] ROOM NO: [facility] AGE: 39 REPORT TYPE: DISCHARGE SUMMARY SEX: F ADMITTING PHYSICIAN:Angela Martinez MD ATTENDING PHYSICIAN:Angela Martinez MD ADMISSION DATE: 05/29/2019 DISCHARGE DATE: 06/01/2019 HOSPITAL COURSE: Ms. Milvia Huang is a valentina y pleasant 39-year-old lady, patient of Dr. Lamb in [place], [place], who cam e to the hospital because of sudden onset of headache and speech abnormality. Please see the details of presentation in H and P. Briefly, this is a 39-y ear-old lady who was transferred from an outside facility whe re she had gone initially for headache and speech difficulty. She had an NIH score of 2 . The patient had an initial CT, which was negative for any acute hemorrhage or intracranial process. She was not a candidate for IV TPA due to be ing outside of the therapeutic window, hence a CT angio of the head and neck was done, which showed an internal carotid artery thrombus. She was sent to [facility] urgently for mechanical thrombectomy. An MRI of the b rain was done, which showed a left MCA territory infarct causing he r to have expressive aphasia. She was considered to be a good interventional can didate and hence was taken to the procedure suite by Dr. Levine and had a successful interval m echanical thrombectomy of the left internal carotid artery occlusion using a P enumbra thromboaspiration system. The patient tolerated the procedure well . Initially, there was a period of a fog that she had where she was having a hard time trying to catch up with words, but progressively she got be tter to the point that she was back to her baseline. 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 The patient will be discharged home on aspirin. Dr Skaggs has initiated a hypercoagulable workup as he r sister, who is 20, also had a stroke. She herself was on control pills, which has been reque sted to be discontinued. She has been on phentermine and hence would need to have valvular evaluations done to make sure that she does not have any valvular heart disease, make sure that she does not have any arrhythmias related to phe ntermine, make sure that she does not have any evidence of cardiac so urce of this issue. Also, she may have pulmonary hypertension that may be secondary to this, which may be the cause of some of the PACs that she was having versus a po ssibility of sleep apnea as a cause of this. Nevertheless, she was rec ommended that she will need to have an outpatient workup for the same and Dr. Clarissa arambula will olive picker the strings from here. Cardiology has already cleared her from [facility] perspective. She is on a full-dose aspirin. Initial blood work for factor V Leiden mutation as well as protein C and S, antithrombi n III, lupus anticoagulant, etc. has been done, the results of which will be forwarded to her PCP. Dictated By: Angela Martinez MD PATIENT NAME: MILVIA HUANG ACCOUNT #: [id number] WT: DS:EMILIE/CLAUDIA/NTS Conf#: [id number]/DID#: [id number] cc: Gary in [place], [place] Authenticated by Angela Martinez MD On 06/02 04:11:31 PM at 1611 PATIENT NAME: MILVIA HUANG ACCOUNT #: [id number] 2019-06-01 10:41:00-00:00 [facility] PRO[facility]ESS NOTE REPORT#:[id number] REPORT STATUS: Signed DATE:06/01/19 TIME: 1041 PATIENT: MILVIA HUANG UNIT #: [id number] ROOM/BED: [address] : [address] AGE: 39 SEX: F ATTEND: Riya Martinez MD ADM AUTHOR: Angela Martinez MD * ALL edits or amendments must be made on the el [employer]/computer document * Progress Note Progress Note [id number] Electronically Signed by Angela Martinez MD on 0 06/01/19 at 1042 RPT #:[id number] END OF REPORT 2019-06-01 07:57:00-00:00 [facility] ([facility]) Cardiology Consultation REPORT#:[id number] REPORT STATUS: Signed DATE:06/01/19 TIME: 756 PATIENT: MILVIA HUANG UNIT #: [id number] ROOM/BED: [address] : 80 AGE: 39 SEX: F ATTEND: Dread Cole DO ADM AUTHOR: Mavis Robins MD * ALL edits or amendments must be made on the [employer]/computer document * History of Present Illness Free Text HPI Notes Free Text HPI Notes: 39-year-old female with with Migraines who presented to [facility] in [place], [place] with headache, slurred speech, and c onfusion. Upon awakening yesterday morning at around 0600, she felt weird. She felt disoriented and had a headache that worsened. She had a hard t lashanda getting herself up. She was having difficulty getting her words out and smiley wise claims her speech was slurred. She was very disoriented, looking for her keys in e kitchen cabinets. Family denied noticing any focal de ficits or facial drooping. Her daughter took her to hospital for evaluation. On arrival to this hospital NIHSS was [address] head was negative. She was not given Alteplase due to debbi ng outside of therapeutic window. She was then transferred to [facility] for further evaluation. CTA done there showed acute thrombus to proximal left ICA. She was then transferred to [facility] ED for ELVO. On arrival here NIHSS was 1-2. MRI done here showed large area of subacute ischemia in left MCA distribution. She went to cath lab nurse and underwent mechanica l thrombectomy. She is admitted to CV/ Neuro ICU for further evaluation and management of CVA and ELVO. She is now transferred to the telemetry floor. She is doing well. On telemetry she was noted to have PVCs hence is consult Echo was done at admission - normal with no PFO - read by Dr. Barrientos History - Adult longitudinal Past medical history: Reports: Hypertension, Kidne y disease/stones (Kidney stones), Headache disorder. Additional medical history: migraine with and without aura Past surgical history: Reports: Bariatric procedure (Gastric Bypass), T onsillectomy, Lithotripsy. Family history: Reports: Coagulopathy (Siste r - Factor V Liden), Diabetes (Father), Hypertension (Father, Mother), Stroke/TIA (Sister). 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 [place] Ambulatory status: Independent Review of Systems Free Text ROS Notes Free Text ROS Notes: 10 pt ROS except for what has already been menti oned in hx Objective Physical Exam VS/I O: Vital Signs: Date Time Temp Pulse Resp B/P B/P Pulse O2 O2 Flow FiO2 Mean Ox Delivery Rate 06/01 0510 36.3 77 17 119/74 88.9 97 Room air 07/02 2309 36.6 67 18 144/86 105.5 100 Room air 07/02 2309 36.6 67 18 144/86 105.5 100 Room air 07/02 2248 67 07/02 2200 66 19 124/60 86 100 07/02 2025 92 23 158/92 119 99 07/02 2000 36.9 07/02 1600 36.9 85 20 145/75 98 100 Room air 07/02 1100 36.9 07/02 1100 88 24 132/60 87 100 07/02 1000 76 22 133/76 99 100 07/02 0900 67 19 122/63 87 100 07/02 0800 61 15 123/64 86 98 24 hour I O ending at 0700: 07/03 0700 07/02 1900 Intake Total 1750 Output Total Balance 1750 Intake, Oral 1750 Number 1 Bowel Movements Number Voids 7 Patient 118.3 kg Weight Weight Bed scale Measurement Method Patient Weight Weight (lb): 260 Weight (oz): 12.91 Weight (kg): 118.300 General appearance: alert, awake Head/Eyes: normal conjunctiva/sclera Neck: no bruit/NL carotids Cardiovascular: CV assessment: regular rate and rhythm, no murm ur Respiratory: clear to auscultation Lower extremity: LE assessment: no edema Neuro/FISCAL OFFICER: per neurologist Diagnosis, Assessment Plan Free Text DxA P Notes Free Text DxA P Notes: 1. Left MCA Stroke r/t Left ICA Thrombosis - MRI large area of Lt MCA infarct from acute th rombus to proximal left ICA - S/P mechanical thrombectomy - On ASA. Hypercoagulable workup per Hematology 2. Hypertension - Has not needed any meds since gastric bypass - BP stable 3. Migraines - Not c/o headache at this time - Tylenol as needed 4. PVCs - Reviewed full disc losure on telemetry - Not that frequent. Definitely no Afib. K was at low end of normal. Got K and M g yesterday. Echo read as showing normal findings. No need to do anything else from cardiac standpo int Electronically Signed by Mavis Robins MD on 02/15 at 0807 RPT #:[id number] END OF REPORT 2019-05-31 23:29:00-00:[address] [facility]) Neurology Progress Note REPORT#:[id number] REPORT STATUS: Signed DATE:05/31/19 TIME: 2328 PATIENT: MILVIA HUANG UNIT #: [id number] ROOM/BED: [address] : 80 AGE: 39 SEX: F ATTEND: Dread Cole DO ADM AUTHOR: Poppy Vu MD * ALL edits or amendments must be made on the [employer]/computer document * Subjective Comments: Patient reports that her speech is greatly impro rosalio and she feels back to baseline Objective Physical Exam VS: Last Documented: Result Date Time Pulse Ox 100 05/31 2309 B/P 144/86 05/31 2309 B/P Mean 105.5 05/31 2309 O2 Delivery Room air 05/31 2309 Temp 36.6 05/31 2309 Pulse 67 05/31 2309 Resp 18 05/31 2309 Patient Weight Weight (lb): 265 Weight (oz): 14.04 Weight (kg): 120.202 Sitting up in bed and appears comfortable she's awake alert and oriented to person, place her speech is much more fluent today and her res ponses are much more quick Medications: Current Home Medications NORETHINDRONE/ETHINYL ESTRADIOL/FE FUM (MICROGES TIN FE 12/19) 1 TAB PO DAILY PHENTERMINE (ADIPEX-P) 37.5 MG PO DAILY FERROUS SULFATE (FERROUS SULFATE 300 MG/5 ML) 30 0 MG PO DAILY CYANOCOBALAMIN (VITAMIN B-12) 1,000 MCG IM Q30D Active Meds + DC'd Last 24 Hrs Enoxaparin Sodium 40 MG DAILY SUBQ Atorvastatin Calcium 40 MG BEDTIME PO Aspirin 325 MG Q24H PO Magnesium 100 ML ASDIR PRN IV Magnesium Sulfate 50 ML ASDIR PRN IV Magnesium Sulfate 100 ML ASDIR PRN IV Acetaminophen 650 MG Q6H PRN PRN PO Dextrose/Water 25 ML ASDIR PRN IV Glucagon 1 MG ASDIR PRN IM Insulin Human Lispro LOW DOSE SCALE ASDIR SUBQ Ondansetron HCl 4 MG Q4H PRN PRN IV Potassium Chloride 100 ML ASDIR PRN IV Potassium Chloride 20 MEQ ASDIR PRN PO Sodium Chloride 1,000 ML .[id number] IV (DC) Sodium Chloride 250 ML ASDIR PRN IV Diagnosis, Assessment Plan Free Text A P: This is a 39-year-old woman with history of obes ity, migraine headache, and family history of coagulopathy presenting with a n acute left MCA stroke secondary to left internal carotid arter y occlusion. She was able to undergo a mechanical thrombectomy. Her neurologic examinat ion is now normal. 1. Acute Ischemic Stroke 2. Left ICA thrombus, now s/p mechanical thrombe ctomy 3. Obesity 4. Migraine headahces- controlled PLAN 1. Aspirin 325 mg daily and Statin 2. Outpatient hematology f/u for hypercoaguable work up and results 3. Speech therapy 4. Advised she not use OCPs Will follow Electronically Signed by Poppy Vu MD on at 2336 RPT #:[id number] END OF REPORT 2019-05-31 22:20:00-00:00 [facility] ([facility]) Critical Care Progress Note REPORT#:[id number] REPORT STATUS: Signed DATE:05/31/19 TIME: 2219 PATIENT: MILVIA HUANG UNIT #: [id number] ROOM/BED: [address] : [address] AGE: 39 SEX: F ATTEND: Edelmira Coleemely Srinivasan DO ADM AUTHOR: Mariana Ramon MD * ALL edits or amendments must be made on the el [employer]/computer document * Subjective Chief Complaint: Weakness Comments: Her neurological status is improving Review of Systems ROS Constitutional: Denies: chills, fatigue, fev er, generalized weakness, lethargy, malaise, recent wt loss, other. Skin: Denies: abrasion, bruising, contusion, diaphores is, ecchymosis, itching, laceration, rash, swelling, other. Allergy/Immun: Denies: allergic reaction, anaphylaxis, hives, i tching, rhinorrhea, sneezing, other. Eyes: Denies: redness, discharge, visual loss/blurred, itching, diplopia, eye pain, photophobia, swelling, other. Respiratory: Denies: HERNANDEZ (dyspnea on exertion), hemoptysis, n on productive cough, parox nocturnal dyspnea, pleurisy, pleuritic pain, pneumonia, productive cough (sputum ), SOB, wheezing, other. Cardiovascular: Denies: chest pain, HERNANDEZ (dyspnea on exer tion), edema, orthopnea, palpitations, parox nocturnal dyspnea, other. Musculoskeletal: Denies: arthritis, extremity pain, extremity swe lling, joint pain, joint swelling, lumbar pain, myalgias, neck pain, thor acic pain, other. All systems rev neg: except as marked Objective General VS/I O Reviewed Physical Exam General appearance: alert, awake Head/Eyes: PERRLA, EOMI Neck: no JVD, no lymphadenopathy Cardiovascular: no murmur, no rub, no gallop Respiratory/Chest: symmetric expansion, no distr ess, no tenderness Abdomen: soft, non-tender, no CVA tenderness, no distention Extremities: upper extremities pulse, no pedal e royal Skin: normal color, normal temperature Results Findings/Data: Laboratory values were reviewed Diagnosis, Assessment Plan Free Text A P: Assessment: 1. Left MCA Stroke r/t Left ICA Thrombosis - MRI shows large area of Lt MCA infarct - CTA head done at OSH showed acute thrombus to proximal left ICA - S/p mechanical thrombectomy - Was not candidate for Alteplase due to being o utside of therapeutic window - NIHSS initially 6 - NIHSS now 1 (some delay with words) - MRS prior to admit 0 - MRS after admit estimate +1 - CT head if any acute neuro change - Keep SBP <160 - Start ASA in am - Lipid panel pending - Begin statin - Can start anti-coagulation per Neuro IR - Hypercoagulable stroke work up: arterial throm bophilia panel and Hematology consult - PT/OT/ST - Neurology consult 2. Hypertension - Has not needed any meds since before gastric b ypass - BP stable - Keep SBP <160 3. Migraines - Not c/o headache at this time - Tylenol as needed 4. She is having frequent PACs when she was asleep. It was noted by me between 4.45 to 5 pm today when I entered the room to ex amine her. This may be due to untreated sleep apnea. She will need an outpatie nt sleep study. I will also consult cardiology for cardiac evaluation as thi s could be the cause of her stroke. Downgrade to IMU Electronically Signed by Mariana Ramon MD on 02/15 at 0533 RPT #:[id number] END OF REPORT 2019-05-31 07:52:00-00:00 [id number] [facility] [address] [facility]. [address] [place] [address] PATIENT NAME: MILVIA HUANG ADMIT DATE: ACCOUNT NO: [id number] ROOM NO: [place] [address] AGE: 39 REPORT TYPE: eECHOCARDIOGRAM REPORT. SEX: F ADMITTING PHYSICIAN:Kasey Cole DO ATTENDING PHYSICIAN:Kasey Cole DO *[facility]* [address] [facility] [address] [place] [address] Transthoracic Echocardiogram Patient: Milvia Huang Study Date: 05/30/2019 BP: 123 / 62 Location: [facility] URN: [id number] : 1980 Age: 39 Height: 65 in / 165.1 cm Gender: F Weight: 26 4.4 lb / 120.2 kg BMI/BSA: 44.1 kg/m 2 / 2.41 m 2 *Ordering Physician: * Remigio Alejandro *Interpreting Physician: * Sagar Laguna MD *Biological Science Technician: * Ree, Teresa [facility] [[email or web address]] (AE) Indications: CVA. Study data: Transthoracic echocardiogram. Proced ure: Transthoracic echocardiography was performed. Images were obta ined using a VIVID E9 cardiac ultrasound machine. Intravenous contrast (agitated saline) was administered. Complete 2D, complete spectral Dop pler, and color Doppler. Patient status: Inpatient. Patient room number: ICC19. Study status: Routine. Findings Left ventricle: The cavity size is normal. Wall thickness is normal. Systolic function is normal. The estimated eject ion fraction is 55-60%. Wall motion is normal; there are no regional wal l motion abnormalities. Left ventricular diastolic function parameters a re normal. Right ventricle: The cavity size is normal. Syst olic function is normal. PATIENT NAME: MILVIA HUANG ACCOUNT #: [id number] Left atrium: The atrium is normal in size. Right atrium: The atrium is normal in size. Atrial septum: Echo contrast study shows no shun t. Aorta: Aortic root: The aortic root is normal in size. Aortic valve: The valve is structurally normal. The valve is trileaflet. There is no evidence of stenosis. Th ere is no regurgitation. Mitral valve: The valve is structurally normal. There is no evidence of stenosis. There is no regurgitation. Tricuspid valve: The valve is structurally blayne l. There is no regurgitation. Pulmonic valve: The valve is structurally normal . There is no regurgitation. Pericardium: There is no pericardial effusion. Pulmonary arteries: The main pulmonary artery is normal-sized. Systemic veins: Inferior vena cava: The vessel is normal in size . The respirophasic diameter changes are in the normal range (>= 50% ). Measurements Left ventricle Value Ref Left atrium continued Value Ref ARLENE, LAX 4.7 cm 3.8 - 5.2 AP dim ES, LAX 4.1 cm 2.7 - 3.8 ESD, LAX 3.0 cm 2.2 - 3.5 SI dim ES, LAX 4.1 cm --------- ESD/bsa, LAX 1.2 cm/m 2 1.3 - 2.1 LA/Ao root ra yolette 1.5 --------- FS, LAX 36 % AP dim, ES MM 4.1 cm 2.7 - 3.8 ESD 3.0 cm 2.2 - 3.5 LA/Ao root ratio, MM 1 --------- ESD/bsa 1.2 cm/m 2 1.3 - 2.1 FS 36 % 45 Aortic valve Value Ref PW, ED 1.2 cm 0.6 - 0.9 Peak v, S 1.75 m/sec --------- PW, ES 1.5 cm Mean v, S 1.14 m/sec --------- IVS/PW, ED 0.92 VTI, S 35.9 cm --------- EF 65 % 54 - 74 Mean grad, S 6.2 mm Hg --------- EF, SMM Teich. 65 % >=55 Peak grad, S 12.2 mm Hg --------- E', lat brenna, TDI 14.6 cm/sec >=10.0 LVOT/AV, VT I ratio 0.95 --------- E/e', lat brenna, TDI 8 GEORGE, VTI 2.85 cm 2 --------- E', med brenna, TDI 9.9 cm/sec >=7.0 LVOT/AV, Vpe ak ratio 0.81 --------- PATIENT NAME: MILVIA HUANG ACCOUNT #: [id number] E/e', med brenna, TDI 12 GEORGE, Vmax 2.42 cm 2 --------- E', avg, TDI 12.3 cm/sec E/e', avg, TDI 9 <=14 Mitral valve Value Ref Peak E 0.12 m/sec --------- LVOT Value Ref Peak A 0.94 m/sec --------- Diam, S 1.95 cm Decel time 375 ms --------- Area 3.0 cm 2 Peak E/A ratio 1.23 --------- Peak vijay, S 1.41 m/sec MR vena cont racta 4.1 cm --------- Mean vijay, S 0.93 m/sec VTI, S 34.2 cm Tricuspid valve Value Ref Peak grad, S 8 mm Hg TR peak v 2 m/sec <=2.8 Mean grad, S 4 mm Hg Peak RV-RA gra d, S 16 mm Hg --------- SV 102 ml SV/bsa 42 ml/m 2 Aortic root Value Ref Root diam 2.7 cm <4.2 Ventricular septum Value Ref Root diam, ED MM 4.05 cm --------- IVS, ED 1.1 cm 0.6 - 0.9 IVS, ES 1.1 cm Ascending aorta Value Ref AAo AP diam, S 2.8 cm --------- Right ventricle Value Ref AAo AP diam/bsa, S 1.2 cm/m 2 --------- ARLENE, LAX 4.1 cm ARLENE 4.1 cm Pulmonary artery Value Ref Pressure, S 26 mm Hg Pressure, S 20.8 mm Hg --------- Left atrium Value Ref Systemic veins Value Ref LA ID 4.1 cm Estimated CVP 10 mm Hg --------- AP dim, ES 4.05 cm 2.70 - 3.80 Conclusions Summary: 1. Left ventricle: The cavity size is normal. Wa ll thickness is normal. PATIENT NAME: MILVIA HUANG ACCOUNT #: [id number] Systolic function is normal. The estimated ejec tion fraction is 55-60%. Wall motion is normal; there are no reg ional wall motion abnormalities. Left ventricular diastolic func tion parameters are normal. 2. Atrial septum: Echo contrast study shows no s sands. Impressions: 1. Normal left ventricle systolic a nd diastolic function, ejection fraction 55-60%. 2. Pulmonary pressure is normal. 3. Saline bubble study negative for interatrial shunt. Prepared and electronically signed by Sagar Laguna MD 05/31/2019 07:52 Electronically Signed by Sagar Laguna MD on 01/18 at 0752 PATIENT NAME: MILVIA HUANG ACCOUNT #: [id number] 2019-05-30 23:04:00-00:00 [facility] ([facility]) Critical Care Consult Note REPORT#:[id number] REPORT STATUS: Signed DATE:05/30/19 TIME: 2303 PATIENT: MILVIA HUANG UNIT #: [id number] ROOM/BED: [address] : 80 AGE: 39 SEX: F ATTEND: Dread Cole DO ADM AUTHOR: Mariana Ramon MD * ALL edits or amendments must be made on the el [employer]/computer document * History of Present Illness HPI HPI: This is a 39-year-old female with PMHx of HTN, Migraines, and Kidney Stones who presented to [facility] in [place], [place] with headache, slurred speech, and confusion. Pt claims she was normal when she went to sleep night before last at 2300. Upon awakening yesterday morning at heidi und 0600, she felt weird. She felt disoriented and had a headache that worsened. She had a hard time getting herself up. She was having difficulty getting he r words out and family claims her speech was slurred. She was very disoriented , looking for her keys in the kitchen cabinets. Family den ied noticing any focal deficits or facial drooping. Her daughter took her to hospital for evaluation . On arrival to this hospital NIHSS was [address] head was negative. Seda jules was not given Alteplase due to being outside of therapeutic window. She was then perkins sferred to [facility] for further evaluation. CTA done there show ed acute thrombus to proximal left ICA. She was then trans ferred to [facility] ED for ELVO. On arrival here NIHSS was 1-2. MRI done here showed large area of subacute ischemia in left MCA distribution. She went to [facility] lab and underwent mechanical thrombectomy. She is admitted to CV/Neuro ICU for further evaluation and management of CVA and ELVO. History - Adult longitudinal Past medical history: Reports: Hypertension, Kidne y disease/stones (Kidney stones), Headache disorder. Past surgical history: Reports: Bariatric procedure (Gastric Bypass), T onsillectomy, Lithotripsy. Family history: Reports: Coagulopathy (Siste r - Factor V Liden), Diabetes (Father), Hypertension (Father, Mother), Stroke/TIA (Sister). 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 [place] Ambulatory status: Independent Review of Systems Constitutional: Denies: chills, fatigue, fev er, generalized weakness, lethargy, malaise, recent wt loss, other. Skin: Denies: abrasion, bruising, contusion, diaphores is, ecchymosis, itching, laceration, rash, swelling, other. Respiratory: Denies: HERNANDEZ (dyspnea on exertion), hemoptysis, n on productive cough, parox nocturnal dyspnea, pleurisy, pleuritic pain, pneumonia, productive cough (sputum ), SOB, wheezing, other. Cardiovascular: Denies: chest pain, HERNANDEZ (dyspnea on exer tion), edema, orthopnea, palpitations, parox nocturnal dyspnea, other. Heme: Denies: adenopathy, bleeding, bruising, petechia e, other. All systems rev neg: except as marked Objective Physical Exam: VS/I O: Vitals were reviewed and noted as per chart General appearance: alert, awake, oriented Head/Eyes: PERRLA, EOMI Neck: no JVD, no lymphadenopathy Cardiovascular: no murmur, no rub, no gallop Respiratory/Chest: symmetric expansion, no distr ess, no tenderness Abdomen: soft, no distention, no guarding Extremities: upper extremities pulse, no pedal e royal Skin: normal color, normal temperature Results: Findings/Data: Laboratory values reviewed Radiology data: Reviewed Diagnosis, Assessment Plan Diagnosis, Assessment Plan Free Text A P: Assessment: 1. Left MCA Stroke r/t Left ICA Thrombosis - MRI shows large area of Lt MCA infarct - CTA head done at OSH showed acute thrombus to proximal left ICA - S/p mechanical thrombectomy - Was not candidate for Alteplase due to being o utside of therapeutic window - NIHSS initially 6 - NIHSS now 1 (some delay with words) - MRS prior to admit 0 - MRS after admit estimate +1 - CT head if any acute neuro change - Keep SBP <160 - Start ASA in am - Lipid panel pending - Begin statin - Can start anti-coagulation per Neuro IR - Hypercoagulable stroke work up: arterial throm bophilia panel and Hematology consult - PT/OT/ST - Neurology consult 2. Hypertension - Has not needed any meds since before gastric b ypass - BP stable - Keep SBP <160 3. Migraines - Not c/o headache at this time - Tylenol as needed Total critical care time spe nt formulating plan was greater than 45 minutes. No procedure time included in this time. Electronically Signed by Mariana Ramon MD on 02/15 at 0528 RPT #:[id number] END OF REPORT 2019-05-30 15:07:00-00:00 [facility] ([facility]) Edgar/Oncology Consult Note REPORT#:[id number] REPORT STATUS: Signed DATE:05/30/19 TIME: 1506 PATIENT: MILVIA HUANG UNIT #: [id number] ROOM/BED: [address] : 80 AGE: 39 SEX: F ATTEND: Dread Cole DO ADM AUTHOR: Krishan Skaggs MD * ALL edits or amendments must be made on the el [employer]/computer document * History of Present Illness Reason for consult: suspected hypercoagulalbe state HPI: The pt is a 39 y/o Female who transferred from [facility] yesterday after presenting with The initial CT head w/o co ntrast showed no evidence of hemorrhage or other acute intracranial p rocess. She was not a candidate for IV tPA due to being outside of therapeutic window. 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 Upon arrival to [facility], a MRI Brain was done and showed a left MCA infarct, no evidence of hemorrhage. Pt underwent endovascular acute stroke treatment with mechanical thrombectomy for left internal carotid artery oc clusion by interventional neuroradiologist yesterday. Pt reports sister had stroke at age 20 in the setting. She is now 26, on anticoagulation with no new issues. Her siste r is known to have factor V leiden deficiency. No DVT/PE in the family. Pt h ad been on OCP for a year due to irregualr menstruation, non-smoker. History - Adult longitudinal Past medical history: Reports: Hypertension, Kidne y disease/stones (Kidney stones), Headache disorder. Past surgical history: Reports: Bariatric procedure (Gastric Bypass), T onsillectomy, Lithotripsy. Family history: Reports: Coagulopathy (Siste r - Factor V Liden), Diabetes (Father), Hypertension (Father, Mother), Stroke/TIA (Sister). 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 [place] Ambulatory status: Independent Review of Systems Constitutional: Denies: chills, fatigue, fev er, generalized weakness, lethargy, malaise, recent wt loss, other. Skin: Denies: abrasion, bruising, contusion, diaphores is, rash, swelling. Allergy/Immun: Denies: allergic reaction, anaphylaxis, hives, r hinorrhea. Eyes: Denies: redness, discharge, visual loss/blurred, itching, eye pain, photophobia. ENT: Denies: ear drainage, earache, hearing loss, camelia al congestion, nose bleeding, sinus problem. Respiratory: Denies: HERNANDEZ (dyspnea on exertion), hemoptysis, n on productive cough, parox nocturnal dyspnea, pleurisy, pleuritic pain, SOB . Cardiovascular: Denies: chest pain, HERNANDEZ (dyspnea on exer tion), edema, orthopnea, palpitations, parox nocturnal dyspnea. GI: Denies: abdominal pain, anorexia, consti pation, diarrhea, nausea, rectal pain, vomiting. : Denies: dysuria, flank pain, frequency, hematuri a, pelvic pain, urgency. Musculoskeletal: Denies: arthritis, extremity pain, extremity swe lling, joint pain, joint swelling, myalgias, neck pain. Heme: Denies: adenopathy, bleeding, bruising, petechia e. Endocrine: Denies: cold intolerance, polydipsia, polyuria, weight gain. Neuro: Reports: confusion, slurred speech. Denies: bladder dysfunction, change in LOC, dizziness, focal weakness, gait problem, headach e, lightheaded, seizure. Psych: Denies: anxiety, depression. Objective Physical Exam VS: Vital Signs Date Temp Pulse Resp B/P B/P Mean Pulse Ox FiO2 05/29-05/30 36.7-36.8 48-87 15-25 110-140/57-78 76-103 98-100 Last Documented: Result Date Time Pulse Ox 100 05/30 1400 B/P 122/64 05/30 1400 B/P Mean 85 / 1400 Pulse 87 / 1400 Resp 25 05/30 1400 Temp 36.8 05/30 0400 Patient Weight Weight (lb): 265 Weight (oz): 14.04 Weight (kg): 120.202 General appearance: alert, awake, no acute distr ess HEENT: anicteric, atraumatic , mucosal membranes moist, normal conjunctiva/sclera , normal ear left, normal nose, normal pharynx Neck: no JVD, no lymphadenopathy Cardiovascular: regular rate and rhythm, normal heart sounds, normal S1/S2, no gallop Respiratory: aerating well, clear to auscultatio n, symmetric expansion Abdomen: normal bowel sounds, soft Genitourinary: no schafer Extremities: no edema Neuro/FISCAL OFFICER: abnormal speech, disoriented, alert Considered stroke alert: yes Skin: dry, intact, normal color Lymphatics: neck normal, no lymphadenopathy Results Findings/Data: Laboratory Tests 05/30/19621: [Embedded Image Not Available] 05/30/19228: [Embedded Image Not Available] Laboratory Tests 05/30 05/30 05/30 05/30 0940 0622 621 228 Chemistry Sodium (137 - 145 mmol/L) 141 Potassium (3.4 - 5.0 mmol/L) 3.6 Chloride (98 - 107 mmol/L) 109 H Carbon Dioxide (22 - 30 mmol/L) 22 BUN (7 - 17 mg/dL) 6 L Creatinine (0.5 - 1.0 mg/dL) 0.7 Glomerular Filtr Rate (>60) 99 Glucose (74 - 106 mg/dL) 76 POC Glucose (74 - 106 MG/DL) 138 H Hemoglobin A1c (0 - 5.9 %) 6.1 H Calcium (8.4 - 10.2 mg/dL) 7.7 L Total Bilirubin (0.2 - 1.3 mg/dL) 0.3 Conjugated Bilirubin (0 - 0.3 mg/dL) 0 Unconjugated Bilirubin (0 - 1.1 mg/dL) 0.2 AST (15 - 46 U/L) 21 ALT (13 - 69 U/L) 14 Total Alk Phosphatase (38 - 126 U/L) 61 Troponin I (0.012 - 0.033 ng/mL) < 0.012 L Total Protein (6.3 - 8.2 g/dL) 5.8 L Albumin (3.5 - 5.0 g/dL) 3.2 L Triglycerides (mg/dL) 77 Cholesterol (mg/dL) 106 LDL Cholesterol Measurd (32 - 99 mg/dL) 65.54 HDL Cholesterol (40 - 59 mg/dL) 33 L Coronary Risk Interp 3.21 05/30 2236 Chemistry POC Glucose (74 - 106 MG/DL) 73 L Magnesium (1.6 - 2.3 mg/dL) 1.9 Troponin I (0.012 - 0.033 ng/mL) < 0.012 L Laboratory Tests 05/30 622 Coagulation INR 1.1 PTT ([place]) (23.4 - 37.0 SECONDS) 19.2 L PT Patient/Control Mix (9.2 - 12.1 SECONDS) 12. 6 H Laboratory Tests 05/30 022 Hematology WBC (5.0 - 12.0 x10 3/uL) 6.4 RBC (4.20 - 5.40 x10 6/uL) 3.96 L Hgb (12.0 - 16.0 g/dL) 7.5 L Hct (36.0 - 46.0 %) 27.4 L MCV (81 - 99 fL) 69 L MCH (27 - 31 pg) 18.9 L MCHC (33 - 37 g/dL) 27.4 L RDW (11.5 - 15.5 %) 18.4 H Plt Count (130 - 400 x10 3/uL) 351 MPV (9.4 - 16.4 fL) 9.9 Neut % (Auto) (43 - 65 %) 57.7 Lymph % (Auto) (20.5 - 45.5 %) 34.6 [place] % (Auto) (5.5 - 11.7 %) 6.4 Eos % (Auto) (0.9 - 2.9 %) 0.5 L Baso % (Auto) (0.2 - 1.0 %) 0.6 Neut # (Auto) (2.2 - 4.8 x10 3/uL) 3.72 Lymph # (Auto) (1.3 - 2.9 x10 3/uL) 2.23 [place] # (Auto) (0.3 - 0.8 x10 3/uL) 0.41 Eos # (Auto) (0.0 - 0.2 x10 3/uL) 0.03 Baso # (Auto) (0.0 - 0.1 x10 3/uL) 0.04 Immature Gran % (0.0 - 2.0 %) 0.2 Nucleated RBC % (0 - 1.0 %) 0.0 Platelet Estimate (ADEQUATE) ADEQUATE Plt Morphology Comment (NORMAL) NORMAL Polychromasia (NONE SEEN) 1+ H Poikilocytosis (NONE SEEN) 1+ H Anisocytosis (NONE SEEN) 3+ H Microcytosis (NONE SEEN) 3+ H Ovalocytes (NONE SEEN) 1+ H Radiology data: Recent Impressions: SPECIAL PROCEDURES - SP FLUORO NDL 05/29 2020 Report Impression - Status: SIGNED Entered: 05/29/20192249 IMPRESSION: Fluoroscopic guidance was provided for cerebral angiogram. I was not physically present for this procedure. Please see dedicated surgical report for further details. LOCATION: B2 Impression By: Diamond Serrano MD MAGNETIC RESONANCE IMAGING - MRI ELVO 05/29 2027 Report Impression - Status: SIGNED Entered: 05/29/20192053 IMPRESSION: Large area of restricted diffusion involving the left MCA distribution with corresponding hyperintense T2 changes consi stent with subacute ischemia. No hemorrhagic transformation. LOCATION: A 1 Impression By: Diamond Serrano MD Results: labs reviewed, vital signs stable Diagnosis, Assessment Plan Free Text A P: 1. Subacute left MCA stroke in a patient with a no known vascular factors. Patient has undergone mechanical thrombectomy. H ematology was consulted for possible hypercoagulable state. Will check facto r V Leiden deficiency, prothrombin gene mutation, antithrombin 3, prote in C, protein S deficiencies, homocystine cystine level and Clarence 2. She is currently on aspirin 325 mg a day. Management per neurology. Patient was on OCP whi ch is likely a contributing factor as well. 2. Expressive dysphasia due to above: Patient wi ll likely need rehab. Plan was discussed with the patient in detail, t erwin butler for the consult. at 0828 RPT #:[id number] END OF REPORT 2019-05-30 13:05:00-00:00 [facility] ([facility]) Neuro Interventional Prog Note REPORT#:[id number] REPORT STATUS: Signed DATE:05/30/19 TIME: 1305 PATIENT: MILVIA HUANG UNIT #: [id number] ROOM/BED: [address] : 80 AGE: 39 SEX: F ATTEND: Christo Gómez MD ADM AUTHOR: Oc Levine * ALL edits or amendments must be made on the el [employer]/computer document * General VS/I O: Last Documented: Result Date Time Pulse Ox 100 05/30 631 B/P 120/59 05/30 0631 B/P Mean 85 05/30 0631 Pulse 52 05/30 0631 Resp 18 05/30 0631 Temp 36.8 05/30 0400 24 hour I O ending at 0700: 05/30 0700 05/29 1900 Intake Total 906.00 Output Total 1000 Balance -94.00 Intake, IV 556.00 Intake, Oral 350 Output, Urine 1000 Patient 120.6 kg Weight Weight Bed scale Measurement Method Patient Weight Weight (lb): 265 Weight (oz): 14.04 Weight (kg): 120.202 Subjective Chief complaint: Headache and speech abnormality Comments: Status post endovavascular mechanical thrombecto my - PPD # 1. No acute neurological eventts overnight. Patient with family at bedside; she denies any new neurological symptoms. Objective Physical Exam General appearance: alert, awake, oriented, no a cute distress Neuro/FISCAL OFFICER: alert, oriented X 3, NL cerebellar function, normal speech, no motor deficits, no sensory deficits, CNII-XII grossly intact, reflexes equal bilat Current Medications Medications: Active Meds + DC'd Last 24 Hrs Atorvastatin Calcium 40 MG BEDTIME PO Aspirin 325 MG Q24H PO Magnesium 100 ML ASDIR PRN IV Magnesium Sulfate 50 ML ASDIR PRN IV Magnesium Sulfate 100 ML ASDIR PRN IV Acetaminophen 650 MG Q6H PRN PRN PO Dextrose/Water 25 ML ASDIR PRN IV Glucagon 1 MG ASDIR PRN IM Insulin Human Lispro LOW DOSE SCALE ASDIR SUBQ Magnesium Sulfate 1 EACH ASDIR PRN IV (DC) Ondansetron HCl 4 MG Q4H PRN PRN IV Potassium Chloride 100 ML ASDIR PRN IV Potassium Chloride 20 MEQ ASDIR PRN PO Sodium Chloride 1,000 ML .[id number] IV Povidone Iodine 1 EACH BID NASAL Sodium Chloride 250 ML ASDIR PRN IV Sodium Chloride 5 ML Q12HR IV (DC) Heparin Sodium/Sodium Chloride 3,000 ML .STK-MED ONE I-ARTERIAL (DC) Heparin Sodium/Sodium Chloride 1,000 ML .STK-MED ONE I-ARTERIAL (DC) Iodixanol 0 .STK-MED ONE I-ARTERIAL (DC) Heparin Sodium (Porcine) 0 .STK-MED ONE IV (DC) Lidocaine HCl 0 .STK-MED ONE LOCAL (DC) Sodium Chloride 1,000 ML .STK-MED ONE IV (DC) Fentanyl Citrate 0 .STK-MED ONE IV (DC) Midazolam HCl 0 .STK-MED ONE IV (DC) Heparin Sodium/Sodium Chloride 2,000 ML .STK-MED ONE I-ARTERIAL (DC) Sodium Chloride 5 ML ASDIR PRN IV (DC) Sodium Chloride 10 ML ASDIR PRN IV (DC) Sodium Chloride 250 ML ASDIR PRN IV (DC) Results Findings/Data: Laboratory Tests: 05/30 05/30 05/30 0940 0622 0622 Chemistry Sodium (137 - 145 mmol/L) 141 Potassium (3.4 - 5.0 mmol/L) 3.6 Chloride (98 - 107 mmol/L) 109 H Carbon Dioxide (22 - 30 mmol/L) 22 BUN (7 - 17 mg/dL) 6 L Creatinine (0.5 - 1.0 mg/dL) 0.7 Glomerular Filtr Rate (>60) 99 Glucose (74 - 106 mg/dL) 76 POC Glucose (74 - 106 MG/DL) 138 H Calcium (8.4 - 10.2 mg/dL) 7.7 L Total Bilirubin (0.2 - 1.3 mg/dL) 0.3 Conjugated Bilirubin (0 - 0.3 mg/dL) 0 Unconjugated Bilirubin (0 - 1.1 mg/dL) 0.2 AST (15 - 46 U/L) 21 ALT (13 - 69 U/L) 14 Total Alk Phosphatase (38 - 126 U/L) 61 Troponin I (0.012 - 0.033 ng/mL) < 0.012 L Total Protein (6.3 - 8.2 g/dL) 5.8 L Albumin (3.5 - 5.0 g/dL) 3.2 L Triglycerides (mg/dL) 77 Cholesterol (mg/dL) 106 LDL Cholesterol Measurd (32 - 99 mg/dL) 65.54 HDL Cholesterol (40 - 59 mg/dL) 33 L Coronary Risk Interp 3.21 Coagulation INR 1.1 PTT ([place]) (23.4 - 37.0 SECONDS) 19.2 L PT Patient/Control Mix (9.2 - 12.1 SECONDS) 12. 6 H 0705/30 0227 3326 2796 Chemistry POC Glucose (74 - 106 MG/DL) 73 L Hemoglobin A1c (0 - 5.9 %) 6.1 H Magnesium (1.6 - 2.3 mg/dL) 1.9 Troponin I (0.012 - 0.033 ng/mL) < 0.012 L Hematology WBC (5.0 - 12.0 x10 3/uL) 6.4 RBC (4.20 - 5.40 x10 6/uL) 3.96 L Hgb (12.0 - 16.0 g/dL) 7.5 L Hct (36.0 - 46.0 %) 27.4 L MCV (81 - 99 fL) 69 L MCH (27 - 31 pg) 18.9 L MCHC (33 - 37 g/dL) 27.4 L RDW (11.5 - 15.5 %) 18.4 H Plt Count (130 - 400 x10 3/uL) 351 MPV (9.4 - 16.4 fL) 9.9 Neut % (Auto) (43 - 65 %) 57.7 Lymph % (Auto) (20.5 - 45.5 %) 34.6 [place] % (Auto) (5.5 - 11.7 %) 6.4 Eos % (Auto) (0.9 - 2.9 %) 0.5 L Baso % (Auto) (0.2 - 1.0 %) 0.6 Neut # (Auto) (2.2 - 4.8 x10 3/uL) 3.72 Lymph # (Auto) (1.3 - 2.9 x10 3/uL) 2.23 [place] # (Auto) (0.3 - 0.8 x10 3/uL) 0.41 Eos # (Auto) (0.0 - 0.2 x10 3/uL) 0.03 Baso # (Auto) (0.0 - 0.1 x10 3/uL) 0.04 Immature Gran % (0.0 - 2.0 %) 0.2 Nucleated RBC % (0 - 1.0 %) 0.0 Platelet Estimate (ADEQUATE) ADEQUATE Plt Morphology Comment (NORMAL) NORMAL Polychromasia (NONE SEEN) 1+ H Poikilocytosis (NONE SEEN) 1+ H Anisocytosis (NONE SEEN) 3+ H Microcytosis (NONE SEEN) 3+ H Ovalocytes (NONE SEEN) 1+ H Recent Impressions: SPECIAL PROCEDURES - SP FLUORO NDL 05/29 2020 Report Impression - Status: SIGNED Entered: 05/29/20192249 IMPRESSION: Fluoroscopic guidance was provided for cerebral angiogram. I was not physically present for this procedure. Please see dedicated surgical report for further details. LOCATION: B2 Impression By: Diamond Serrano MD [facility]NET[facility] IMAG[facility] - MRI ELVO 05/29 2027 Report Impression - Status: SIGNED Entered: 05/29/20192053 IMPRESSION: Large area of restricted diffusion involving the left MCA distribution with corresponding hyperintense T2 changes consi stent with subacute ischemia. No hemorrhagic transformation. LOCATION: A 1 Impression By: Diamond Serrano MD Diagnosis, Assessment Plan Problem List/A P: 1. Internal carotid artery thrombosis 2. Stroke 3. Headache Free Text A P: This is a 39 y/o female who presented with an ac [place] left MCA stroke due to a left internal carotid artery occlusion. She was not a candidate for IV tPA. Patient's clinical symptoms currently resolved w ith NIHSS of 0. Underwent for endovascular mechanical th rombectomy, which resulted in complete reperfusion and recanalization of left internal carotid artery and patency of the left middle cerebral artery and its branches (AOL 3/mTICI 3). Etiology of stroke: Likely due to possible cardi oembolic vs hypercoagulable event. Plan: - Okay [facility] - Continue with frequent neuro check as per [facility] protocol. - Keep SBP goal normotension - Obtain a CT Head w/o contrast for acute neuro changed. - On ASA 325 mg po daily and Lipitor 40 mg po da billie. - Stroke workup and management as per protocol - as per Neurology team - Please obtain a cardioembolic and hypercoagula ble stroke workup given of unknown etiology of stroke in a young patient. - DVT proph: SCD's. Start chemical proph today. - Increase activity as tolerated - PT/OT/ST for evaluation and treatment. Right groin with no evidence of hematoma. Intact distal pulses. Patient will need to follow- up with an outpatient neurology upon discharge in 1- 3 months. Family updated and questions answered ap propriately. Continue stroke workup as stated above. Patient's case also discusse d with the ICU staffs. Neuro IR team will sign off. Please call NeuroIR for any questions or concer ns. Time: I provided 45 minutes of Cri tical Care to this patient. This included review of recent events, clinical exam ination and review of data, high complexity decision making and management of mul tiple organ systems, and discussion about treatment with members of family and ICU team and document ation. at 1313 RPT #:[id number] END OF REPORT 2019-05-30 09:26:00-00:00 [facility] ([facility]) Neurology Consultation Note REPORT#:[id number] REPORT STATUS: Signed DATE:05/30/19 TIME: 925 PATIENT: MILVIA HUANG UNIT #: [id number] ROOM/BED: [place] [address]-[address] : 80 AGE: 39 SEX: F ATTEND: Dread Cole DO ADM AUTHOR: Poppy Vu MD * ALL edits or amendments must be made on the el [employer]/computer document * History of Present Illness HPI Reason for consult: cva HPI: 39 year old womanwith HTN, migraine and family h istory of coagulopathy transferred from OSH for headache and speech dif ficulty, initial CT head negative however not a candidate for IV TPA due to being outside the therapeutic window. CT angiogram head and neck s howed a left internal carotid artery thrombus. MRI showed a left MCA i nfarct without evidence of hemorrhage. She had a diagnostic cerebral angiogram and [facility] anical thrombectomy for left internal carotid artery occlusion. She still hernandez s not feel like her thinking and speech are completely ba ck to normal, sort of has a brain fog, but otherwise feels good. She does not have a history of TIA or stroke in the past. The patient is a non-smoker. She does have a family history of possible hyper aquatic ability and that her sister had a TIA. T he patient has been on oral contraceptive pills for one year. History - Adult longitudinal Past medical history: Reports: Hypertension, Kidne y disease/stones (Kidney stones), Headache disorder. Additional medical history: migraine with and without aura Past surgical history: Reports: Bariatric procedure (Gastric Bypass), T onsillectomy, Lithotripsy. Family history: Reports: Coagulopathy (Siste r - Factor V Liden), Diabetes (Father), Hypertension (Father, Mother), Stroke/TIA (Sister). Alcohol use: Denies EtOH use Drug use: Denies recreational drugs Smoking status for patients 13 years old or olde r: Never Smoker Allergies: Coded Allergies: benzonatate (From [employer]) (Mild, COUGH 05/30/19) Occupation: Admissions at [facility] [place] Review of Systems Free Text ROS Notes Free Text ROS Notes: 12 point review of systems i s completed and negative except as mentioned in HPI Objective Physical Exam VS: Last Documented: Result Date Time Pulse Ox 100 05/30 631 B/P 120/59 05/30 631 B/P Mean 85 05/30 631 Pulse 52 05/30 631 Resp 18 05/30 631 Temp 36.8 05/30 0400 Patient Weight Weight (lb): 265 Weight (oz): 14.04 Weight (kg): 120.600 General- obese no acute distress, appears comfor table Sitting up in chair HEENT- head is normal cephalic, atraumatic Neck- Supple, no carotid bruit CVS- RRR, S1S2 Abdomen- soft, non tender, bowel sounds present Extremities- no cyanoss clubbing or edema Mental status: The patient is alert, attentive, and oriented. S he has mild loss of fluency, comprehension is intact, She responds slowly Cranial nerves: CN II: Visual fernandez are full to confrontation. Pupils are equal, round and reactive to light. CN III, IV, : At primary gaze, there is no eye deviation. Extraocular movements are full. CN V: Facial sensation is intact to pinprick in all 3 divisions bilaterally. CN VII: Face is symmetric with normal eye closur e and smile. CN VII: Hearing is normal to finger rub. CN IX, X: Palate elevates symmetrically. Phonati on is normal. CN XI: Head turning and shoulder shrug are intac t CN XII: Tongue is midline with normal movements and no atrophy and no fasciculations. Motor: There is no pronator drift of out-stretched arms . Muscle bulk and tone are normal. Strength is full bilaterally. Reflexes: Reflexes are 2+ and symmetri c at the biceps, triceps, knees, and ankles. Plantar responses are flexor. Sensory: Light touch sense are intact in fingers and toes . Coordination: There is no dysmetria on finger-to -nose and [id number]. Medications: Current Home Medications NORETHINDRONE/ETHINYL ESTRADIOL/FE FUM (MICROGES TIN FE 12/19) 1 TAB PO DAILY PHENTERMINE (ADIPEX-P) 37.5 MG PO DAILY FERROUS SULFATE (FERROUS SULFATE 300 MG/5 ML) 30 0 MG PO DAILY CYANOCOBALAMIN (VITAMIN B-12) 1,000 MCG IM Q30D Active Meds + DC'd Last 24 Hrs Aspirin 325 MG Q24H PO Atorvastatin Calcium 40 MG BEDTIME PO Magnesium 100 ML ASDIR PRN IV Magnesium Sulfate 50 ML ASDIR PRN IV Magnesium Sulfate 100 ML ASDIR PRN IV Acetaminophen 650 MG Q6H PRN PRN PO Dextrose/Water 25 ML ASDIR PRN IV Glucagon 1 MG ASDIR PRN IM Insulin Human Lispro LOW DOSE SCALE ASDIR SUBQ Magnesium Sulfate 1 EACH ASDIR PRN IV (DC) Ondansetron HCl 4 MG Q4H PRN PRN IV Potassium Chloride 100 ML ASDIR PRN IV Potassium Chloride 20 MEQ ASDIR PRN PO Sodium Chloride 1,000 ML .[id number] IV Povidone Iodine 1 EACH BID NASAL Sodium Chloride 250 ML ASDIR PRN IV Sodium Chloride 5 ML Q12HR IV (DC) Heparin Sodium/Sodium Chloride 3,000 ML .STK-MED ONE I-ARTERIAL (DC) Heparin Sodium/Sodium Chloride 1,000 ML .STK-MED ONE I-ARTERIAL (DC) Iodixanol 0 .STK-MED ONE I-ARTERIAL (DC) Heparin Sodium (Porcine) 0 .STK-MED ONE IV (DC) Lidocaine HCl 0 .STK-MED ONE LOCAL (DC) Sodium Chloride 1,000 ML .STK-MED ONE IV (DC) Fentanyl Citrate 0 .STK-MED ONE IV (DC) Midazolam HCl 0 .STK-MED ONE IV (DC) Heparin Sodium/Sodium Chloride 2,000 ML .STK-MED ONE I-ARTERIAL (DC) Sodium Chloride 5 ML ASDIR PRN IV (DC) Sodium Chloride 10 ML ASDIR PRN IV (DC) Sodium Chloride 250 ML ASDIR PRN IV (DC) Results Findings/Data: Laboratory Tests 05/30 05/30 05/30 05/30 0622 0622 0229 0226 Chemistry Sodium (137 - 145 mmol/L) 141 Potassium (3.4 - 5.0 mmol/L) 3.6 Chloride (98 - 107 mmol/L) 109 H Carbon Dioxide (22 - 30 mmol/L) 22 BUN (7 - 17 mg/dL) 6 L Creatinine (0.5 - 1.0 mg/dL) 0.7 Glomerular Filtr Rate (>60) 99 Glucose (74 - 106 mg/dL) 76 Hemoglobin A1c (0 - 5.9 %) 6.1 H Calcium (8.4 - 10.2 mg/dL) 7.7 L Magnesium (1.6 - 2.3 mg/dL) 1.9 Total Bilirubin (0.2 - 1.3 mg/dL) 0.3 Conjugated Bilirubin (0 - 0.3 mg/dL) 0 Unconjugated Bilirubin (0 - 1.1 mg/dL) 0.2 AST (15 - 46 U/L) 21 ALT (13 - 69 U/L) 14 Total Alk Phosphatase (38 - 126 U/L) 61 Troponin I (0.012 - 0.033 ng/mL) < 0.012 L < 0. 012 L Total Protein (6.3 - 8.2 g/dL) 5.8 L Albumin (3.5 - 5.0 g/dL) 3.2 L Triglycerides (mg/dL) 77 Cholesterol (mg/dL) 106 LDL Cholesterol Measurd (32 - 99 65.54 mg/dL) HDL Cholesterol (40 - 59 mg/dL) 33 L Coronary Risk Interp 3.21 05/29 2236 Chemistry POC Glucose (74 - 106 MG/DL) 73 L Laboratory Tests 05/30 0622 Coagulation INR 1.1 PTT ([place]) (23.4 - 37.0 SECONDS) 19.2 L PT Patient/Control Mix (9.2 - 12.1 SECONDS) 12. 6 H Laboratory Tests 05/30 0229 Hematology WBC (5.0 - 12.0 x10 3/uL) 6.4 RBC (4.20 - 5.40 x10 6/uL) 3.96 L Hgb (12.0 - 16.0 g/dL) 7.5 L Hct (36.0 - 46.0 %) 27.4 L MCV (81 - 99 fL) 69 L MCH (27 - 31 pg) 18.9 L MCHC (33 - 37 g/dL) 27.4 L RDW (11.5 - 15.5 %) 18.4 H Plt Count (130 - 400 x10 3/uL) 351 MPV (9.4 - 16.4 fL) 9.9 Neut % (Auto) (43 - 65 %) 57.7 Lymph % (Auto) (20.5 - 45.5 %) 34.6 [place] % (Auto) (5.5 - 11.7 %) 6.4 Eos % (Auto) (0.9 - 2.9 %) 0.5 L Baso % (Auto) (0.2 - 1.0 %) 0.6 Neut # (Auto) (2.2 - 4.8 x10 3/uL) 3.72 Lymph # (Auto) (1.3 - 2.9 x10 3/uL) 2.23 [place] # (Auto) (0.3 - 0.8 x10 3/uL) 0.41 Eos # (Auto) (0.0 - 0.2 x10 3/uL) 0.03 Baso # (Auto) (0.0 - 0.1 x10 3/uL) 0.04 Immature Gran % (0.0 - 2.0 %) 0.2 Nucleated RBC % (0 - 1.0 %) 0.0 Platelet Estimate (ADEQUATE) ADEQUATE Plt Morphology Comment (NORMAL) NORMAL Polychromasia (NONE SEEN) 1+ H Poikilocytosis (NONE SEEN) 1+ H Anisocytosis (NONE SEEN) 3+ H Microcytosis (NONE SEEN) 3+ H Ovalocytes (NONE SEEN) 1+ H Radiology Data: Recent Impressions: SPECIAL PROCEDURES - SP FLUORO NDL 05/29 2020 Report Impression - Status: SIGNED Entered: 05/29/20192249 IMPRESSION: Fluoroscopic guidance was provided for cerebral angiogram. I was not physically present for this procedure. Please see dedicated surgical report for further details. LOCATION: B2 Impression By: Diamond Serrano MD MAGNET[facility]ON[facility] IMAG[facility] - MRI ELVO 05/29 2027 Report Impression - Status: SIGNED Entered: 05/29/20192053 IMPRESSION: Large area of restricted diffusion involving the left MCA distribution with corresponding hyperintense T2 changes consi stent with subacute ischemia. No hemorrhagic transformation. LOCATION: A 1 Impression By: Diamond Serrano MD Diagnosis, Assessment Plan Free Text DxA P Notes: This is a 39-year-old woman with history of obes ity, migraine headache, and family history of coagulopathy presenting with a n acute left MCA stroke secondary to left internal carotid arter y occlusion. She was able to undergo a mechanical from back to ne. She has residual loss of fluency but neurologic exam is otherwise reassuring. 1. Acute Ischemic Stroke 2. Left ICA thrombus, now s/p mechanical thrombe ctomy 3. Obesity 4. Migraine headahces- controlled PLAN 1. Hematology consult for hypercoaguable workup 2. Echocardiogram 3. Aspirin 325 mg daily and Stantin 4. FLP and HbA1c 5. 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 Pt claims she was normal when she went to sleep night before last at 2300. Upon awakening yesterday morning at heidi und 0600, she felt weird. She felt disoriented and had a headache that worsened. She had a hard time getting herself up. She was having difficulty getting he r words out and family claims her speech was slurred. She was very disoriented , looking for her keys in the kitchen cabinets. Family den ied noticing any focal deficits or facial drooping. Her daughter took her to hospital for evaluation . On arrival to this hospital NIHSS was [address] head was negative. Seda jules was not given Alteplase due to being outside of therapeutic window. She was then perkins sferred to [facility] for further evaluation. CTA done there show ed acute thrombus to proximal left ICA. She was then trans ferred to [facility] ED for ELVO. On arrival here NIHSS was 1-2. MRI done here showed large area of subacute ischemia in left MCA distribution. She went to [facility] lab and underwent mechanical thrombectomy. She is admitted to CV/Neuro ICU for further evaluation and management of CVA and ELVO. History - Adult longitudinal Past medical history: Reports: Hypertension, Kidne y disease/stones (Kidney stones), Headache disorder. Past surgical history: Reports: Bariatric procedure (Gastric Bypass), T onsillectomy, Lithotripsy. Family history: Reports: Coagulopathy (Siste r - Factor V Liden), Diabetes (Father), Hypertension (Father, Mother), Stroke/TIA (Sister). Alcohol use: Denies EtOH use Drug use: Denies recreational drugs Smoking status for patients 13 years old or olde r: Never Smoker Other social history: Good social support Medications: Home Medications: Medication Dose/Rte/Freq Days Qty Entered Last Max Daily Dose Reviewed NORETHINDRONE/ETHINYL 1 TAB PO DAILY 05/30/19 0 05/30/19 ESTRADIOL/FE FUM 0244 0248 (MICROGESTIN FE 12/19) Strength: 1 TAB TAB PHENTERMINE (ADIPEX-P) 37.5 MG PO DAILY 9 05/30/19 Strength: 37.5 MG TAB 0246 0248 FERROUS SULFATE 300 MG PO DAILY 05/29/19 (FERROUS SULFATE 300 1516 0015 MG/5 ML) Strength: 300 MG/5 ML LIQUID CYANOCOBALAMIN 1,000 MCG IM Q30D 05/29/1905/30 (VITAMIN B-12) 1517 0015 Strength: 1,000 MCG/ML VIAL Current Hospital Medications: Blood Formation,Coagulation Sig/Shabana Start time Last Medication Dose Route Stop Time Status Admin Heparin Sodium/ 3,000 ML .STK-MED ONE 05/29 205 5 DC 05/29 Sodium Chloride I-ARTERIAL 2058 (HEPARIN 2000 UNITS IN 0.9% NACL 1000ML) Heparin Sodium/ 1,000 ML .STK-MED ONE 05/29 205 5 DC 05/29 Sodium Chloride I-ARTERIAL 1 (HEPARIN) Heparin Sodium 0 .STK-MED ONE 05/29 2054 DC (Porcine) IV 2100 (Heparin Sodium) Heparin Sodium/ 2,000 ML .STK-MED ONE 05/29 203 1 DC 05/29 Sodium Chloride I-ARTERIAL 2100 (HEPARIN 2000 UNITS IN 0.9% NACL 1000ML) Cardiovascular Drugs Sig/Shabana Start time Last Medication Dose Route Stop Time Status Admin Atorvastatin Calcium 40 MG BEDTIME 05/30 2100 A C (LIPITOR) PO 06/29 2101 Lidocaine HCl 0 .STK-MED ONE 05/29 2050 DC 05/02 0 (XYLOCAINE 2% MPF) LOCAL 2103 Central Nervous System Agents Sig/Shabana Start time Last Medication Dose Route Stop Time Status Admin Aspirin 325 MG Q24H 05/31 530 AC (ASPIRIN) PO 06/30 531 Acetaminophen 650 MG Q6H PRN PRN 05/30 530 AC 05/30 (TYLENOL REGULAR) PO 06/29 Fentanyl Citrate 0 .STK-MED ONE 05/29 2039 DC 0 05/29 (fentaNYL CITRATE) IV 2102 Midazolam HCl 0 .STK-MED ONE 05/29 2038 DC 05/02 0 (VERSED) IV 2100 Diagnostic Agents Sig/Shabana Start time Last Medication Dose Route Stop Time Status Admin Iodixanol 0 .STK-MED ONE 05/29 2055 DC 05/29 (VISIPAQUE 100ML) I-ARTERIAL 2104 Electrolytic, Caloric, And Elizabeth Sig/Shabana Start time Last Medication Dose Route Stop Time Status Admin Dextrose/Water 25 ML ASDIR PRN 05/30 530 AC (DEXTROSE 50% SYR) IV 06/29 531 Potassium Chloride 100 ML ASDIR PRN 05/30 530 AC (KCL 10MEQ/100ML) IV 06/29 531 Potassium Chloride 20 MEQ ASDIR PRN 05/30 530 AC (POTASSIUM CHLORIDE PO 06/29 531 10% (20MEQ/15ML)) Sodium Chloride 1,000 ML .[id number] 05/30 05 AC 05/30 (SODIUM CHLORIDE IV 05/31 531 06 0.9%) Sodium Chloride 250 ML ASDIR PRN 05/29 2200 AC (SODIUM CHLORIDE IV 06/28 2201 0.9%) Sodium Chloride 1,000 ML .STK-MED ONE 05/29 204 8 DC 05/29 (SODIUM CHLORIDE IV 2056 0.9%) Sodium Chloride 250 ML ASDIR PRN 05/29 2015 DC (SODIUM CHLORIDE IV 07/01 0215 0.9%) Gastrointestinal Drugs Sig/Shabana Start time Last Medication Dose Route Stop Time Status Admin Magnesium 100 ML ASDIR PRN 05/30 0600 AC (MAGNESIUM SULFATE IV 06/29 0601 1GM) Ondansetron HCl 4 MG Q4H PRN PRN 05/30 530 AC (ZOFRAN 4 MG/2 ML IV 06/29 531 INJ) Hormones And Synthetic Substit Sig/Shabana Start time Last Medication Dose Route Stop Time Status Admin Glucagon 1 MG ASDIR PRN 05/30 0530 AC (GLUCAGON) IM 06/29 531 Insulin Human Lispro See Dose ASDIR 05/30 530 AC (HumaLOG) Insts (1) SUBQ 06/29 531 Miscellaneous Therapeutic Agen Sig/Shabana Start time Last Medication Dose Route Stop Time Status Admin Magnesium Sulfate 50 ML ASDIR PRN 05/30 0600 AC (MAGNESIUM SULFATE IV 06/29 0601 2GM) Magnesium Sulfate 100 ML ASDIR PRN 05/30 0600 A C (MAGNESIUM SULFATE IV 06/29 06 4GM) Magnesium Sulfate 1 EACH ASDIR PRN 05/30 530 D C (MAGNESIUM SLIDING IV 06/29 531 SCALE) Skin And Mucous Membrane Agent Sig/Shabana Start time Last Medication Dose Route Stop Time Status Admin Povidone Iodine 1 EACH BID 05/30 0215 AC 05/30 (Nasal Antiseptic NASAL 06/03 901 0230 Swabs) Other Sig/Shabana Start time Last Medication Dose Route Stop Time Status Admin Sodium Chloride 5 ML Q12HR 05/29 2100 DC (SODIUM CHLORIDE IV 05/30 0215 FLUSH) Sodium Chloride 5 ML ASDIR PRN 05/29 2015 DC (SODIUM CHLORIDE IV 05/30 0215 FLUSH) Sodium Chloride 10 ML ASDIR PRN 05/29 2015 DC (NACL 0.9% 10ML IV 05/30 0215 SYRINGE) Dose Instructions: (1)Insulin Human Lispro (HumaLOG): LOW DOSE SCALE Allergies: Coded Allergies: benzonatate (From TESSALON PERLCUCA) (Mild, COUGH 05/30/19) Occupation: Admissions at [facility] in [place] Ambulatory status: Independent Brief Consult Note Physical Exam Vitals: Last Documented: Result Date Time Pulse Ox 100 05/30 631 B/P 120/59 05/30 631 B/P Mean 85 05/30 631 Pulse 52 05/30 631 Resp 18 07/01 0631 Temp 98.2 05/30 0400 General appearance: alert, awake, oriented, no a cute distress, pleasant, conversational, no respiratory distress HEENT: pupils reactive to light, sclera clear Neck: full range of motion, no JVD, no masses or swelling Cardiovascular: normal capillary refill, regular rate rhythm, normal heart sounds Respiratory: clear to auscultation, no d istress, no tenderness, aerating well, symmetric expansion Abdomen: soft, non-tender, no guarding, no rebou nd, no distention Abdomen quadrants: LLQ normal bowel sounds, LUQ normal yue l sounds, RLQ normal bowel sounds, RUQ normal bowel sounds Genitourinary: not indicated Neuro/FISCAL OFFICER: alert, oriented X 3, no motor deficit s, no sensory deficits, Some delay in speech, expressive aphasia Considered stroke alert: yes Extremities: Bilat moves all, Bilat no edema, Bilat normal ca pillary refill, Bilat normal range of motion, Bilat normal sensory, Bilat nor mal motor function Skin: dry, intact, no gross abnormalities, blayne l color Findings/Data: Recent Impressions: SPECIAL PROCEDURES - SP FLUORO NDL 05/29 2020 Report Impression - Status: SIGNED Entered: 05/29/20192249 IMPRESSION: Fluoroscopic guidance was provided for cerebral angiogram. I was not physically present for this procedure. Please see dedicated surgical report for further details. LOCATION: B2 Impression By: Diamond Serrano MD [facility] - MRI ELVO 05/29 2027 Report Impression - Status: SIGNED Entered: 05/29/20192053 IMPRESSION: Large area of restricted diffusion involving the left MCA distribution with corresponding hyperintense T2 changes consi stent with subacute ischemia. No hemorrhagic transformation. LOCATION: A 1 Impression By: Diamond Serrano MD Laboratory Tests 05/30/19 0622: [Embedded Image Not Available] 05/30/19 0229: [Embedded Image Not Available] Free Text A P: 1. Left MCA Stroke r/t Left ICA Thrombosis - MRI shows large area of Lt MCA infarct - CTA head done at OSH showed acute thrombus to proximal left ICA - S/p mechanical thrombectomy - Was not candidate for Alteplase due to being o utside of therapeutic window - NIHSS initially 6 - NIHSS now 1 (some delay with words) - MRS prior to admit 0 - MRS after admit estimate +1 - CT head if any acute neuro change - Keep SBP <160 - Start ASA in am - Lipid panel pending - Begin statin - Can start anti-coagulation per Neuro IR - Hypercoagulable stroke work up: arterial throm bophilia panel and Hematology consult - PT/OT/ST - Neurology consult 2. Hypertension - Has not needed any meds since before gastric b ypass - BP stable - Keep SBP <160 3. Migraines - Not c/o headache at this time - Tylenol as needed KW ICU Checklist ICU Checklist: Analgesia: acetaminophen Nutrition: Regular Glycemic control: ISS Ulcer prophylaxis: None, can start diet DVT prophylaxis: SCDs, AC per hematology choice Need for central Line: NA Need for schafer catheter: NA Ventilator day/weaning: NA Restraints Renewal (within 24 hours): NA at 0759 RPT #:[id number] END OF REPORT 2019-05-30 05:50:00-00:00 [facility] ([facility]) Pharmacy Prog.Note-Vancomycin REPORT#:[id number] REPORT STATUS: Signed DATE:05/30/19 TIME: 05 PATIENT: MILVIA HUANG UNIT #: [id number] ROOM/BED: [address] : [address] AGE: 39 SEX: F ATTEND: Christo Gómez MD ADM AUTHOR: Katharine Steel [facility] * ALL edits or amendments must be made on the [employer]/computer document * Vancomycin Vancomycin Medication Therapy: Medication(s) Ordered: Blood Formation,Coagulation Sig/Shabana Start time Last Medication Dose Route Stop Time Status Admin Heparin Sodium/ 3,000 ML .STK-MED ONE 05/29 205 5 DC 05/29 Sodium Chloride I-ARTERIAL 2058 Heparin Sodium/ 1,000 ML .STK-MED ONE 05/29 205 5 DC 05/29 Sodium Chloride I-ARTERIAL 2100 Heparin Sodium 0 .STK-MED ONE 05/29 2054 DC (Porcine) IV 2100 Heparin Sodium/ 2,000 ML .STK-MED ONE 05/29 203 1 DC 05/29 Sodium Chloride I-ARTERIAL 2100 Cardiovascular Drugs Sig/Shabana Start time Last Medication Dose Route Stop Time Status Admin Atorvastatin Calcium 40 MG BEDTIME 05/30 2100 A C PO 06/29 2101 Lidocaine HCl 0 .STK-MED ONE 05/29 2050 DC 06/3 0 LOCAL 2104 Central Nervous System Agents Sig/Shabana Start time Last Medication Dose Route Stop Time Status Admin Aspirin 325 MG Q24H 05/31 530 AC PO 06/30 05 Acetaminophen 650 MG Q6H PRN PRN 05/30 530 AC PO 06/29 05 Fentanyl Citrate 0 .STK-MED ONE 05/29 2039 DC 0 05/29 IV 2102 Midazolam HCl 0 .STK-MED ONE 05/29 2038 DC IV 210 Diagnostic Agents Sig/Shabana Start time Last Medication Dose Route Stop Time Status Admin Iodixanol 0 .STK-MED ONE 05/29 2055 DC 05/29 I-ARTERIAL 2104 Electrolytic, Caloric, And Elizabeth Sig/Shabana Start time Last Medication Dose Route Stop Time Status Admin Dextrose/Water 25 ML ASDIR PRN 05/30 0530 AC IV 06/29 05 Potassium Chloride 100 ML ASDIR PRN 05/30 530 AC IV 06/29 531 Potassium Chloride 20 MEQ ASDIR PRN 05/30 530 AC PO 06/29 531 Sodium Chloride 1,000 ML .[id number] 05/30 530 IV 05/31 05 Sodium Chloride 250 ML ASDIR PRN 05/29 2200 IV 06/28 2201 Sodium Chloride 1,000 ML .STK-MED ONE 05/29 204 8 DC 05/29 IV 2056 Sodium Chloride 250 ML ASDIR PRN 05/29 2015 DC IV 05/30 0215 Gastrointestinal Drugs Sig/Shabana Start time Last Medication Dose Route Stop Time Status Admin Magnesium 100 ML ASDIR PRN 05/30 06 IV 06/29 06 Ondansetron HCl 4 MG Q4H PRN PRN 05/30 0530 IV 06/29 05 Hormones And Synthetic Substit Sig/Shabana Start time Last Medication Dose Route Stop Time Status Admin Glucagon 1 MG ASDIR PRN 05/30 05 IM 06/29 0531 Insulin Human Lispro See Dose ASDIR 05/30 0530 AC Insts (1) SUBQ 06/29 531 Miscellaneous Therapeutic Agen Sig/Shabana Start time Last Medication Dose Route Stop Time Status Admin Magnesium Sulfate 50 ML ASDIR PRN 05/30 06 AC IV 06/29 601 Magnesium Sulfate 100 ML ASDIR PRN 05/30 0600 A C IV 06/29 601 Magnesium Sulfate 1 EACH ASDIR PRN 05/30 0530 D C IV 06/29 531 Skin And Mucous Membrane Agent Sig/Shabana Start time Last Medication Dose Route Stop Time Status Admin Povidone Iodine 1 EACH BID 05/30 0215 AC 05/30 NASAL 06/03 09 0230 Other Sig/Shabana Start time Last Medication Dose Route Stop Time Status Admin Sodium Chloride 5 ML Q12HR 05/29 2100 DC IV 05/30 215 Sodium Chloride 5 ML ASDIR PRN 05/29 2015 DC IV 05/30 215 Sodium Chloride 10 ML ASDIR PRN 05/29 2015 DC IV 05/30 215 Dose Instructions: (1)Insulin Human Lispro: LOW DOSE SCALE Recent Impressions: SPECIAL PROCEDURES - SP FLUORO NDL 05/29 2020 Report Impression - Status: SIGNED Entered: 05/29/2019 2250 IMPRESSION: Fluoroscopic guidance was provided for cerebral angiogram. I was not physically present for this procedure. Please see dedicated surgical report for further details. LOCATION: B2 Impression By: Diamond Serrano MD [facility]NET[facility] IMAG[facility] - MRI ELVO 05/29 2027 Report Impression - Status: SIGNED Entered: 05/29/20192053 IMPRESSION: Large area of restricted diffusion involving the left MCA distribution with corresponding hyperintense T2 changes consi stent with subacute ischemia. No hemorrhagic transformation. LOCATION: A 1 Impression By: Diamond Serrano MD Vancomycin Goal trough: 15-20 mcg/ml Indication for treatment: SSTI Day of therapy: DAY 1 Weight: Actual weight (kg): 105 [place] body weight (kg): 59.6 Dosing weight (kg): 77.8 VS and I/O: Vital Signs Date Temp Pulse Resp B/P B/P Mean Pulse Ox FiO2 05/29-05/30 36.7-36.8 48-66 17-21 110-140/57-78 76-103 98-100 72 hours ending at 0700 05/30 0705/29 19005/29 0705/28 1900 05/27 07 1900 Intake Total Output Total Balance Patient 120.6 kg Weight Weight Bed scale Measuremen t Method 72 Hour I O Total 05/30 07 Intake Total Output Total Balance Labs: Microbiology: 05/30 226 NASAL: MRSA Screen - RECD Treatment plan: initiation of therapy Initiate Regimen: Yes Rationale: * Pharmacy consulted to dose vancomycin for an i ndication of SSTI * Patient given a loading dose of 2500 mg * Will start 1500 mg Q8H as maintenance * VT due prior to 5th dose 05/31 @ 011:30 * Goal trough 15-20 mg/dL Date DoT SrCr/CrCl Regimen Level 05/30 1 0.5/235 ZV=5287 MG (04:30), SJ=7844 MG Q8 H 05/31 2 VT DUE @11:30 at 0602 RPT #:[id number] END OF REPORT 2019-05-30 00:12:00-00:00 [facility] ([facility]) DT Operative Note REPORT#:[id number] REPORT STATUS: Signed DATE:05/30/19 TIME: 0012 PATIENT: MILVIA HUANG UNIT #: [id number] [address] AGE: 39 SEX: F ATTEND: Christo Gómez MD ADM AUTHOR: Oc Levine * ALL edits or amendments must be made on the [employer]/computer document * Operative Report Operative Note Note: Procedure: 1. Diagnostic cerebral angiogram 2. Endovascular acute stroke treatment with [facility] anical thrombectomy for left internal carotid artery occlusion using the Penumbra Thrombo-aspiratio System. Straight Edger/Treating Physician: Oc hagen MD. Building Performance Consultant: None Clinical Information: Patient is a 39 y/o Female who transferred from [facility] after presenting with headache and speech difficulty t hat started this morning. Her initial NIHSS of [address] head w/o contrast showed no evidence of hemorrhage or other acute intracranial p rocess. She was not a candidate for IV tPA due to being outside of therapeutic window. 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 [facility] to [facility], a MRI Brain was done and showed a left MCA infarct, no evidence of hemorrhage. She was considered to be an interventional cyrus date due to the large vessel occlusion and persistent sev ere neurological symptoms and large at risk area for infarction. Patient understood that there was no current treatment to salvage the already infarcted brain. The devastating cristiana ure of the stroke and the spontaneous risk of hemorrhagic transformation w ere also discussed with the patient. She understood the devastating nature o f the disease and wanted to proceed for a possible mechanical thrombectomy. Consent: The benefits, alternatives, and risks o f the procedure including but not limited to stroke, intracranial bleed, groin hematoma, pseudoaneurysm, infection, dissection, NV, renal failure , need for dialysis, contrast allergy, inability to treat, vessel o cclusion, vessel rupture, hemorrhagic transformation , reperfusion injury, paraly sis, need to use unapproved or investigational drugs /devices, off-label uses of drugs/devices, radia tion injury, hair loss, other unforeseen complications and were explained to the patient and family who agreed to proceed. Anesthesia: I provided monit ored sedation during this procedure, with a face to face time of 60 minutes. Patient was given IV Fe ntanyl and IV Versed were administered during the proc edure and the patient was continuously monitored by a trained independent observer. Room time: Total time was 3 hours. Technique/findings: The elbert ent was brought to the angiography suite and placed in supine position. Patient's groins were preppe d and draped in standard fashion. The right common fe moral artery was palpated and had a good pulse. The artery was accessed with a 4F micro puncture kit with a single-wall puncture after providing local anesth esia with 1% lidocaine. The 4F dilator was exchanged for a 5 Argentine dilator over a guidewire. The 5 Argentine dilator was exchanged for an 8 short Argentine sheath. Right common femoral artery: Pelvic view Under fluoroscopic guidance, angiography was per formed over the right common femoral artery. Pelvic view of the right common femoral artery in the right anterior oblique projection demonstrates a normal right common femoral artery, a normal right superficial fem oral artery and a normal right deep femoral artery. The point of entry of the sheath is abov e the femoral bifurcation. There is no significant stenosis or dissection. There is no aneurysm or AV fistula. Mechanical thrombectomy/Thromboaspiration of lef t internal carotid artery thrombus An 8F NeuronMax guide cathet er was prepped in the standard fashion. Through the short sheath, the NeuronMax guide was advanced o valentina a 5 Fr 125 cm Angle Jenkins catheter and guidewire. Under fluoroscopic deep nce, using roadmap technique, the NeuronMax guide was advanced into the left c ommon carotid artery over the diagnostic catheter and guidewire combination. T he diagnostic catheter and guidewire were removed. Under fluoroscopic guidance, using roadm ap technique, the Neuron Max guide was further advanced into the proximal left internal carotid artery. Left internal carotid artery: Intracranial view Under fluoroscopic guidance, with the NeuronMax guide catheter in position in the internal carotid artery, biplane angiography was performed over the cranium. The intracranial view of the left internal carotid artery in the AP and lateral projections demonstrate an occlusion of the dist al cervical left internal carotid artery. There is good flow seen beyond t he occlusion in the left internal carotid artery and patency of t he left middle cerebral artery (AOL 2, mTICI 2a). The left RAUL is visualized. The anter ior communicating artery is visualized. The left posterior communicating art charleen is well visualized. There is reflux of contrast into the left external car otid artery. There is no aneurysm or arteriovenous malformation or AV fis rosibel. The venous sinuses are well visualized and unremarkable. Using roadmap technique, through the NeuronMax g uide, a Penumbra Jet 7 aspiration catheter was advanced over a Velocity microcatheter and Synchro 2 microwire into the left internal carotid artery. The microwire was then passed through the clot in left internal carotid artery and positioned such that the distal tip of microcatheter was in the terminal segment of the left internal carotid artery. The Penumbra Jet 7 catheter tip was positioned just proximal to the thrombus in the left internal carotid artery . The microwire and the microcatheter were then removed. The Penumbra Jet 7 suction catheter was advanced to the face of the clot and connected to vacuum aspiration for 2 minutes. Th e Penumbra Jet 7 suction catheter was slowly withdrawn into the N euronMax guide catheter while applying gentle aspiration with a 60cc syringe. There was generous bleed back at the proximal po rts of NeuronMax guide in an attempt to remove any inadvertent clot fragments . Left internal carotid artery: Intracranial view (Post Penumbra Jet 7 Suction Aspiration # 1) Under fluoroscopic guidance, with the NeuronMax guide catheter in position in the internal carotid artery, biplane angiography was performed over the cranium. The intracranial view of the left internal carotid artery in the AP and lateral projections demonstrate a complete recan alization with complete reperfusion of the left internal carotid ar milton with patency of the left middle cerebral artery and its branches (mTICI 3/AOL 3). The left RAUL i s visualized. The anterior communicating artery is visualized. The left posterior communicating artery is well visualized. There was m ild catheter-related vasospasm, non-flow limiting in the proximal segment of the cervical internal carotid artery. The venous sinuses are well visualized and unremarkable. There is n o significant stenosis or dissection. There is no contrast extravasation, or non-target emboli. The NeuronMax guide catheter was withdrawn under fluoroscopic guidance. There is no significant dissection. Diagnostic Angiogram: Through the sheath a 5 Argentine Angle glide Terumo diagnostic catheter was advanced into the abdominal and thoracic aorta o valentina a 0.035 inch Terumo guidewire. The guidewire was removed. Right common carotid artery: Intracranial view Under fluoroscopic guidance, the catheter was ad vanced into the right common carotid artery, biplane angiography was performe d over the cranium. The intracranial view of the right common carotid ar milton in the AP, and lateral projections demonstrates a normal right internal carotid artery. There is normal right middle cerebral artery that is well visualized. The branches of the right middle cerebral artery are well visual ized and normal. There is a normal right anterior cerebral artery and their branches. The AComm is well visualized. The right posterior communicating ar milton is well visualized. The right ophthalmic artery is well visualized and i s normal. The right external carotid artery and its branches are well visualized and appear grossly normal. The parenchymal and venous phases appear normal. There is no significant dissection. There is no aneu rysm or arteriovenous malformation, or vasculopathy. Left vertebral artery: Intracranial view Under fluoroscopic guidance, the catheter was advanced into the near the origin of the left vertebral artery and angiography was performed over the cranium. Intracranial view of the lef t vertebral artery in the AP and lateral projections demonstrate normal V3 and V4 segments of the left vertebral artery. The basilar artery is well visualized an d is normal. Bilateral staff home therapy rn are well visualized and are normal. The bilateral SCAs are well visualiz ed and are normal. The left AICA is well visualized and normal. There is a r ight PICA-AICA complex, which is a normal anatomical varia nt. The left PICA is well visualized and is normal. There is no reflux into the contralateral intra mural right vertebral artery. There is no aneurysm, AV fistula or arteriovenou s malformation. There is no significant stenosis or dissection. Upon completion of the procedure, the right groi n short 8 Argentine sheath was removed and an Angioseal device was used for hem ostasis. Patient was hemodynamically stable at the end of the procedu re. There were good bilateral femoral pulses as well as bilateral pedal pulses . The findings were reviewed with the patient's family who was very a ppreciative of the care. The patient s family understood that she already had a stroke and high at risk for possible hemorrhage prior to start of procedure a nd also the life threatening nature of initial stroke. Patient was taken in stable neur ological condition to the ICU for further care. Findings were also discussed w [facility] ICU staffs. I, Dr. Levine, was present for the entire procedure. Impression: 1. Endovascular acute stroke treatment with [facility] anical thrombectomy for acute occlusion of the left internal carotid artery (m TICI 2a/AOL 2), using the Penumbra Thrombo-aspiration system. There is com plete reperfusion and recanalization of the left internal carotid christina ry and patency of the left middle cerebral artery and its branches (AOL 3/ mTICI 3) after 1 pass. at 0022 RPT #:[id number] END OF REPORT 2019-05-29 22:01:00-00:00 [facility] ([facility]) Cath Post Proc - Brief REPORT#:[id number] REPORT STATUS: Signed DATE:05/29/19 TIME: 2200 PATIENT: MILVIA HUANG UNIT #: [id number] ROOM/BED: [place] [address] : 80 AGE: 39 SEX: F ATTEND: Christo Gómez MD ADM AUTHOR: Oc Levine * ALL edits or amendments must be made on the el ectronic/computer document * Cath Procedure Cath Procedure Pre-procedure diagnosis: Left internal carotid artery occlusion Post-procedure diagnosis: Left carotid artery oc clusion, s/p complete recanalization Procedure performed: 1. Diagnostic cerebral heron ogram. 2. Endovascular mechanical thrombectomy Performed by: Oc Levine MD Building Performance Consultant(s): none Findings: Endovascular acute stroke treatment with mechani rhea thrombectomy for acute occlusion of the left internal carotid artery (m TICI 2a/AOL 2), using the [employer] Thrombo-aspiration system. There is com plete reperfusion of the left internal carotid artery and patency of t he left middle cerebral artery and its branches (AOL 3/mTICI 3) after the first pass. Right groin short sheath rem meli and placed a 8 Argentine Angioseal closure device. Keep right leg flat for 6 hours. Plan: - Keep SBP goal < 160 mm Hg - Start ASA 325 po daily and lipitor 40 mg po da billie - Stroke workup as per Neurology team. Complications: none Anesthesia type: moderate sedation Mod. sedation provided by me: yes Independent trained observer present monitored p t's resp. to the sedation yes Blood components: none Estimated blood loss in ml's: 50 Disposition: CCU/ICU Plan: Plan: medical management Specimens removed/altered: none at 2208 RPT #:[id number] END OF REPORT 2019-05-29 20:44:00-00:00 [facility] ([facility]) Neuro Interventional Consult REPORT#:[id number] REPORT STATUS: Signed DATE:05/29/19 TIME: 2043 PATIENT: MILVIA HUANG UNIT #: [id number] ROOM/BED: [place] [address][id number] : 80 AGE: 39 SEX: F ATTEND: Ra megan Gómez MD ADM AUTHOR: Oc Levine * ALL edits or amendments must be made on the el [employer]/computer document * History of Present Illness Chief complaint: Headache and speech abnormality HPI: Patient is a 39 y/o Female who transferred from [facility] after presenting with headache and speech difficulty t hat started this morning. Her initial NIHSS of [address] head w/o contrast showed no evidence of hemorrhage or other acute intracranial p rocess. She was not a candidate for IV tPA due to being outside of therapeutic window. 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 [facility] arrival to [facility], a MRI Brain was done and showed a left MCA infarct, no evidence of hemorrhage. She was considered to be an interventional cyrus date due to the large vessel occlusion and persistent sev ere neurological symptoms and large at risk area for infarction. Patient understood that there was no current treatment to salvage the already infarcted brain. The devastating cristiana ure of the stroke and the spontaneous risk of hemorrhagic transformation w ere also discussed with the patient. She understood the devastating nature o f the disease and wanted to proceed for a possible mechanical thrombectomy. History Past medical history: Reports: Hypertension. Allergies: Coded Allergies: benzonatate (From [employer]) (UNKNOWN 05/02 ) lisinopril (UNKNOWN 05/29/19) Objective Physical Exam VS: Patient Weight Weight (lb): Weight (oz): Weight (kg): Medications: Current Home Medications [PHENTERMINE] NORETHINDRONE/ETHINYL ESTRADIOL/FE FUM (MICROGES TIN FE 12/19) 1 TAB PO DAILY FERROUS SULFATE (FERROUS SULFATE 300 MG/5 ML) 30 0 MG PO DAILY CYANOCOBALAMIN (VITAMIN B-12) 1,000 MCG IM Q30D Active Meds + DC'd Last 24 Hrs Sodium Chloride 250 ML ASDIR PRN IV Sodium Chloride 5 ML Q12HR IV Heparin Sodium/Sodium Chloride 3,000 ML .STK-MED ONE I-ARTERIAL (DC) Heparin Sodium/Sodium Chloride 1,000 ML .STK-MED ONE I-ARTERIAL (DC) Iodixanol 0 .STK-MED ONE I-ARTERIAL (DC) Heparin Sodium (Porcine) 0 .STK-MED ONE IV (DC) Lidocaine HCl 0 .STK-MED ONE LOCAL (DC) Sodium Chloride 1,000 ML .STK-MED ONE IV (DC) Fentanyl Citrate 0 .STK-MED ONE IV (DC) Midazolam HCl 0 .STK-MED ONE IV (DC) Heparin Sodium/Sodium Chloride 2,000 ML .STK-MED ONE I-ARTERIAL (DC) Sodium Chloride 5 ML ASDIR PRN IV Sodium Chloride 10 ML ASDIR PRN IV Sodium Chloride 250 ML ASDIR PRN IV General appearance: alert, awake, oriented, no a cute distress, conversational Neuro/FISCAL OFFICER: Alert and oriented to self, place, no t to date. Follows commands. No dysrathria or aphasia. PE RRLA, no gaze deviation, no facial asymmetry. Intact facial sensation. Intact strength x 4 extremitie s 5/5. Intact light touch and pinprick throughout. No dysmetria. Results Radiology Data: Recent Impressions: [facility] - MRI ELVO 05/29 2027 Report Impression - Status: SIGNED Entered: 05/29/20192053 IMPRESSION: Large area of restricted diffusion involving the left MCA distribution with corresponding hyperintense T2 changes consi stent with subacute ischemia. No hemorrhagic transformation. LOCATION: A 1 Impression By: Sadia - Sherrell, Diamond OTERO Diagnosis, Assessment Plan Problem List/A P: 1. Internal carotid artery thrombosis 2. Stroke Free Text DxA P Notes Free text DxA P notes: This is a 39 y/o female who presented with an ac [place] left MCA stroke due to a left internal carotid artery occlusion. She was not a candidate for IV tPA. Underwent for endovascular mechanical th rombectomy, which resulted in complete reperfusion and recanalization of left internal carotid artery and patency of the left middle cerebral artery and its branches (AOL 3/mTICI 3). Etiology of stroke: Likely due to possible cardi oembolic vs hypercoagulable event. Plan: - ICU admit with frequent neuro check Q 1hr as p er ICU protocol. - Keep SBP goal < 160 mm Hg. - Obtain a CT Head w/o contrast for acute neuro changed. - Start ASA 325 mg po daily and Lipitor 40 mg po daily. - Stroke workup and management as per protocol - as per Neurology team - Please obtain a cardioembolic and hypercoagula ble stroke workup given of unknown etiology of stroke in a young patient. - DVT proph: SCD's. Start chemical proph tomorro w. - PT/OT/ST for evaluation and treatment tomorrow . Right groin short sheath rem meli and placed a 8 Argentine Angioseal closure device. Keep right leg flat for 6 hours. Family updated and questions answered appropriat juan alberto. Patient is at high risk for hemorrhage, worsening stroke, seizure, cereb ral edema, compression/ herniation, and . Discussed above plans/fin dings with family; they verbalized understanding and agreed with the shari n of care. Patient's case also discussed with the [facility] staffs. Please call [facility] for any questions or concerns. Time: I provided 90 minutes of Cri tical Care to this patient. This included review of recent events, clinical exam ination and review of data, high complexity decision making and management of mul tiple organ systems, and discussion about treatment with members of family and ICU team and document ation. at 2229 RPT #:[id number] END OF REPORT 2019-05-29 20:14:00-00:[address] [facility]) EMERGENCY PROVIDER REPORT REPORT#:[id number] REPORT STATUS: Signed DATE:05/29/19 TIME: 2013 PATIENT: MILVIA HUANG UNIT #: [id number] ROOM/BED: [address] AGE: 39 SEX: F PCP PHYS: No Primary or Family P hysician SERVICE AUTHOR: Giorgio Noel DO * ALL edits or amendments must be made on the el ectronic/computer document * HPI-Stroke/CVA General Confirmed Patient Yes Patient Type New patient Initial Greet Date/Time 05/29/192011 Presentation Chief Complaint: Other Generalized weakness Hx Obtained From Patient Free Text HPI Notes Free Text HPI Notes 39 y/o F pt presents to ED as a transfer from [facility], due to findings of left LCA occlusion. 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 Pt denies any chest pain. Portions of this section were scribed by Ciara Arias on 05/30/19 at 0146 Risk-Stroke/CVA Risk Stratification )( Initial NIH Stroke Scale )( Initial NIH Stroke Scale Response Value NIHSS Applicable? Yes 0 Level of Consciousness Alert and responsive (0) 0 Ask Month Age Both questions right (0) 0 Blink Eyes/Squeeze Hands Performs both tasks (0 ) 0 Horizontal EOM NL side/side eye mvmt (0) 0 Visual Fernandez No visual loss (0) 0 Facial Palsy Normal symmetry (0) 0 Right Arm Motor Drift (10s) No drift 10 sec (0) 0 Left Arm Motor Drift (10s) No drift 10 sec (0) 0 Right Leg Motor Drift (5s) No drift 5 sec (0) 0 Left Leg Motor Drift (5s) No drift 5 sec (0) 0 Limb Ataxia FNF/Heel-Gibson No ataxia (0) 0 Sensation (Arms/Legs/Face) No sensory loss (0) 0 Language Aphasia No aphasia, normal (0) 0 Dysarthria No dysarthria (0) 0 Extinction/Inattention No extinct/inattent (0) 0 Total 0 Portions of this section were scribed by Ciara Arias on 05/29/19 at 2350 Review of Systems ROS Statements All systems rev neg except as marked. Focused Review of Systems Constitutional Reports: Weakness - generalized. Denies: Chills, Fever. Eyes Denies: Discharge bilat, Redness bilat. Ears/Nose/Throat Denies: Earache bilat, Nasal congestion, Sore th roat. Respiratory Denies: Cough, non-productive, Cough, productive , Shortness of breath. Cardiovascular Denies: Chest pain, Palpitations. GI Denies: Abdominal pain, Diarrhea, Nausea, Vomiti ng. Musculoskeletal Denies: Back pain, Neck pain. Skin Denies: Laceration, Swelling. Neurologic Reports: Generalized weakness. Denies: Change LO C. Portions of this section were scribed by Ciara Arias on 05/29/19 at 2350 PMH-Stroke/CVA Stated Complaint NEURO Allergies Coded Allergies: benzonatate (From [employer]ESEM[employer] SMITH) (Mild, COUGH 05/30/19) Home Medications Reported Medications FERROUS SULFATE (FERROUS SULFATE 300 MG/5 ML) 30 0 MG PO DAILY CYANOCOBALAMIN (VITAMIN B-12) 1,000 MCG IM Q30D Discontinued Reported Medications NORETHINDRONE/ETHINYL ESTRADIOL/FE FUM (MICROGES TIN FE 12/19) 1 TAB PO DAILY PHENTERMINE (ADIPEX-P) 37.5 MG PO DAILY [PHENTERMINE] Review of Nursing Notes Rev avail, and agree Portions of this section were scribed by Ciara Arias on 05/29/19 at 2016 Physical Exam Vital Signs Review of Vital Signs Reviewed Focused PE General/Const General/Const Awake, Alert, No acute distress, Cooperative MS Head Head Atraumatic, Normocephalic Eyes Eyes PERRL, EOMI, No nystagmus, No photophobia Ears/Nose/Throat Ears/Nose/Throat Airway patent, Mucous membrane s moist, Pharynx NL, Tympanic membs NL, Ext aud canal NL, Nose exam NL MS Neck Neck Supple, No meningismus, Full range of brady on, No swelling, Non-tender Resp/Chest Respiratory/Chest Breath sounds NL, Breath soun ds = bilat, No respiratory distress, No rales, No rhonchi, No wheezing Cardiovascular Cardiovascular Heart rate NL, Regular rhythm, H eart sounds NL Abdomen/GI Abdomen/GI Soft, Non-tender, No guarding, No re bound MS Upper Extrem Upper Extremity/MS Inspection NL, No swelling MS Lower Extrem Lower Ext/Pelvis/MS Inspection NL, No swelling Skin Skin Color NL, Warm, Dry, Intact Neurologic Neurologic Oriented X3, Speech NL, No motor def icits, No sensory deficits Psychiatric Psychiatric Affect NL, Mood NL, Judgment/insigh t NL, Thought content NL Portions of this section were scribed by Ciara Arias on 05/29/19 at 2350 Interpretation Diagnostics Lab Results Interpretation Results Recent Impressions: SPECIAL PROCEDURES - SP FLUORO NDL 05/29 2020 Report Impression - Status: SIGNED Entered: 05/29/2019 2250 IMPRESSION: Fluoroscopic guidance was provided for cerebral angiogram. I was not physically present for this procedure. Please see dedicated surgical report for further details. LOCATION: B2 Impression By: Sadia - ChapinDiamond jules MD Imaging Statement Radiographic studies reviewed and considered in the medical decision-making. Portions of this section were scribed by Ciara Arias on 05/30/19 at 0146 Procedures Stroke Thrombolytic Therapy rtPA Administration No, not indicated MDM-Stroke/CVA Free Text MDM Notes Free Text MDM Notes Pt is a transfer from [facility] due to activation ELVO after left LCA occlusion. Dr. Levine accepted pt for perkins sfer and took pt to cath lab nurse. MRI of brain obtained prior to cath lab nurse. Re-eval uation of pt shows no sign of weakness or neurological findings. ED Course Medication(s) Ordered Medication(s) Ordered: Electrolytic, Caloric, And Elizabeth Sig/Shabana Start time Last Medication Dose Route Stop Time Status Admin Sodium Chloride 250 ML ASDIR PRN 05/29 2015 AC IV 05/30 215 Other Sig/Shabana Start time Last Medication Dose Route Stop Time Status Admin Sodium Chloride 5 ML Q12HR 05/29 2100 AC IV 05/30 215 Sodium Chloride 5 ML ASDIR PRN 05/29 2015 AC IV 05/30 215 Sodium Chloride 10 ML ASDIR PRN 05/29 2015 AC IV 05/30 215 Portions of this section were scribed by Ciara Arias on 05/29/19 at 2350 Patient Discharge Departure Vital Signs/Condition Vital Signs All vital signs available at the time of this en try have been reviewed. Condition Stable Clinical Impression Clinical Impression Primary Impression: Stroke Time of Impression 2014 Disposition Decision Admit Admit Physician Name Garfield Gómez MD Admit Physician Hospice Community Liaison Request Time 2014 Request Date 05/29/19 )( Admission Accepts Yes )( Accepted Time 2014 )( Accepted Date 05/29/19 Call Information will see patient, agrees with eval, agrees with plan, Will consult with Day Care Director Dr. Eaton. Discharge/Care Plan Counseled Regarding Imaging studies, Need for ad mission Admit Note I have spoken with the patie nt and/or caregivers. I have explained the patient's condition, diagnoses and casey atment plan based on the information available to me at this time. I have answered the patient's and/ or caregiver's questions and addressed any concerns. The patient and/or careg christopher have as good an understanding of the patient 's diagnosis, condition and treatment plan as can be expected at this point. The patient has been stabilized within the capability of the emergency department. The patient wi ll be transported for further care and management or will be moved to an observation or inpatient service. I have communicated with the staff or medical p ractitioner taking over this patient's care. Critical Care Time Spent (minutes): 50 Services Performed Patient management by Marco sinha spent at bedside, Reviewing test results, Reviewing imaging, Discussing elbert ent care, Documentation in record, Time with fam/surrogate Separately billable procedures excluded from marco e. CC Note 1 Total critical care time [50 ] minutes. Total critical care time documented does not include time spent on separately billed proc edures or the services of residents, students, nurses or physician assista nts. I personally saw and examined the patient. I have reviewed all diagno stic interpretations and treatment plans as written. I was present for the marie portions of any procedures performed and the inclusive time noted in any critical care statement. Critical care time includes patient m anagement by me, time spent at the patients bedside, time to review lab and imaging results, discussing patient care, documentation in the medical record, and time spent with the f amily or caregiver. CC Note 2 The high probability of sudden, clinically signi ficant deterioration in the patient's condition required the highest level of my preparedness to intervene urgently. The services I provided to t his patient were to treat and/or prevent clinically significant deterioration that could result in s evere disability or . Services included the follow ing: chart data review, reviewing nursing notes and/ or old charts, documentation time, consu ltant collaboration regarding findings and treatment options, medic ation orders and management, direct patient care, re -evaluations, vital sign assessments and orderin g, interpreting and reviewing diagnostic studies/lab tests. Aggregate critical care time was [50] mi nutes, which includes only time during which I was engaged in work directly related to the patient's care, as described above, whether at the bedside or elsewhe re in the Emergency Department. It did not include time spent performing other reported procedures or the services of residents, students, nurses or physician assista nts. Supervising Physician Note Scribe Statement Randolph Arias, 05/29/19 20 15, scribing for and in the presence of [Dr. Noel]. Signed By: Randolph Arias, 05/29/192014 Provider Scribed Statement I personally performed the s ervices described in this documentation and reviewed the documentation that was dictated to the scrib e(s) in my presence, and it accurately records my words and actions. Virgie Noel, 05/30/19 Portions of this section were scribed by Ciara Arias on 05/30/19 at 0146 Electronically Signed by Giorgio Noel DO on 05/18 at 1828 RPT #:[id number] END OF REPORT 2019-05-29 15:59:00-00:00 [facility] ([facility]) EMERGENCY PROVIDER REPORT REPORT#:[id number] REPORT STATUS: Signed DATE:05/29/19 TIME: 1559 PATIENT: MILVIA HUANG UNIT #: [id number] ROOM/BED: AGE: 39 SEX: F PCP PHYS: Undefined Provider SERVICE AUTHOR: Rosa Villanueva MD LOCATION: [facility] * ALL edits or amendments must be made on the [employer]/computer document * HPI-Headache General Confirmed Patient Yes Patient Type New patient Initial Greet Date/Time 05/29/19 1450 Presentation Chief Complaint Headache Onset of Sx (Nursing) Date: 05/29/19 Hx Obtained From Patient Sudden in Onset? No Onset Occurred Hours ago Symptom Duration Waxes and wanes Progression since Onset Intermittent Location Frontal R, Frontal L Quality Aching Severity: Onset Mild Severity: Current Mild Associated with Reports: Confusion, Pain. Denies: Nausea, Numbne ss, Photophobia, Seizure, Syncope, Visual disturbance, Vomiting, Weakness. Associated Other Pt denies other symptoms Context Recent Healthcare Recent testing, Prior workup Similar Sx Previous Yes Free Text HPI Notes Free Text HPI Notes 39 y/o F w/ PMHx of HAs pres ents c/o BURRELL and confusion that started this morning upon waking up. Pt reports h aving similar sx in the past but has not found that any medications have helped with her symptoms. S he states she has been prescribed three different headache medications, but she cannot recall the names. Pt reports sx progres sively got worse after waking up. Pt denies smoking, drinking, drug abuse, or any known drug allergies. She denies any recent trauma or neck manipulation. She is on co ntrol, but denies any past hx of blood clots. She has no further complaints. Portions of this section were scribed by Jacy Anthony on 05/29/19 at 1834 Risk-Headache Risk Stratification )( Subarachnoid Hemorrhage Risk factors reviewed )( IC Mass Lesion Risk factors reviewed NIH Stroke Scale NIH Stroke Scale Response Value NIHSS Applicable? Yes 0 Level of Consciousness Alert and responsive (0) 0 Ask Month Age Both questions right (0) 0 Blink Eyes/Squeeze Hands Performs both tasks (0 ) 0 Horizontal EOM NL side/side eye mvmt (0) 0 Visual Fernandez No visual loss (0) 0 Facial Palsy Normal symmetry (0) 0 Right Arm Motor Drift (10s) No drift 10 sec (0) 0 Left Arm Motor Drift (10s) No drift 10 sec (0) 0 Right Leg Motor Drift (5s) No drift 5 sec (0) 0 Left Leg Motor Drift (5s) No drift 5 sec (0) 0 Limb Ataxia FNF/Heel-Gibson No ataxia (0) 0 Sensation (Arms/Legs/Face) No sensory loss (0) 0 Language Aphasia Mild loss fluency (1) 1 Dysarthria No dysarthria (0) 0 Extinction/Inattention No extinct/inattent (0) 0 Total 1 NIH Stroke Score Timing Time 1455 Date 05/29/19 Portions of this section were scribed by Jacy Anthony on 05/29/19 at 1559 Review of Systems ROS Statements All systems rev neg except as marked. Focused Review of Systems Constitutional Denies: Chills, Fever. Eyes Denies: Blurred bilat, Discharge bilat. Ears/Nose/Throat Denies: Ear drainage bilat, Ear ringing bilat. GI Denies: Abdominal pain, Anorexia. Musculoskeletal Denies: Back pain, Extremity pain. Skin Denies: Abrasion, Abscess. Neurologic Reports: Confusion, Headache. Denies: Abnormal m ovement, Bladder dysfunction. Psychiatric Denies: Agitation, Anxiety. Additional Review of Systems Respiratory Denies: Cough, non-productive, Cough, productive . Cardiovascular Denies: Chest pain, Dyspnea on exertion. Female Denies: Dysuria, Flank pain. Hematologic Denies: Bleeding, Bruising. Portions of this section were scribed by Jacy Anthony on 05/29/19 at 1559 Past Medical History - Adult Stated Complaint ALTERED MENTAL STATUS Allergies Coded Allergies: benzonatate (From [employer]) (Mild, COUGH 05/30/19) Home Medications Active Scripts ATORVASTATIN (LIPITOR) 40 MG PO BEDTIME ATORVASTATIN (LIPITOR) 40 MG PO BEDTIME #30 TAB Prov: 06/01/19 ASPIRIN 325 MG PO Q24H ASPIRIN 325 MG PO Q24H #30 TAB Prov: 06/01/19 Reported Medications FERROUS SULFATE (FERROUS SULFATE 300 MG/5 ML) 30 0 MG PO DAILY CYANOCOBALAMIN (VITAMIN B-12) 1,000 MCG IM Q30D Discontinued Reported Medications NORETHINDRONE/ETHINYL ESTRADIOL/FE FUM (MICROGES TIN FE 12/19) 1 TAB PO DAILY PHENTERMINE (ADIPEX-P) 37.5 MG PO DAILY Smoking status for patients 13 years old or olde r: Never Smoker Portions of this section were scribed by Jacy Anthony on 05/29/19 at 1559 Physical Exam Vital Signs Vital Signs First Documented: Result Date Time Pulse Ox 100 05/29 1508 B/P 131/80 05/29 1508 B/P Mean 97 05/29 1508 O2 Delivery Room air 05/29 1508 Temp 36.8 05/29 1508 Pulse 55 05/29 1508 Resp 17 05/29 1508 Last Documented: Result Date Time Pulse Ox 100 05/29 1902 B/P 103/53 05/29 1902 B/P Mean 69 05/29 1902 O2 Delivery Room air 05/29 1902 Temp 36.8 05/29 1902 Pulse 57 05/29 1902 Resp 16 05/29 1902 Review of Vital Signs Reviewed Focused PE General/Const General/Const Awake, Alert, No acute distress, Cooperative, Not toxic appearing MS Head Head Atraumatic, Normocephalic Eyes Eyes PERRL, EOMI, Conjunctiva NL, Cornea clear, Temporal arteries NL Pupils Dilated R, Dilated L. Ears/Nose/Throat Ears/Nose/Throat Airway patent, Mucous membrane s moist, Pharynx NL, No sinus tenderness, No facial swelling MS Neck Neck Supple, No meningismus, Full range of brady on, No carotid bruit, No tracheal deviation Resp/Chest Respiratory/Chest Breath sounds NL, Breath soun ds = bilat, No rales, No rhonchi, No wheezing Cardiovascular Cardiovascular Heart rate NL, Regular rhythm, H eart sounds NL, No gallop, No murmurs, No rubs, Cap refill not delayed, Periph eral circulation NL, Pulses = bilaterally Abdomen/GI Abdomen/GI Soft, Non-tender, No guarding, No re bound, No distention Skin Skin No rash, Warm, Dry, Intact Neurologic Neurologic Oriented X3, No motor deficits, No s ensory deficits, CN II - XII intact (Grossly ), Cerebellar NL Speech Slow, Expressive aphasia. Psychiatric Psychiatric Affect NL, Mood NL Additional PE MS Back Back Inspection NL, Full range of motion, No CV A tenderness Portions of this section were scribed by Jacy Anthony on 05/29/19 at 1834 Interpretation Diagnostics Lab Results Interpretation Results Laboratory Tests 05/29/19 1550: [Embedded Image Not Available] Laboratory Tests: 05/29 1550 Chemistry Sodium (137 - 145 MMOL/L) 140 Potassium (3.5 - 5.1 MMOL/L) 3.7 Chloride (98 - 107 MMOL/L) 114 H Carbon Dioxide (22 - 30 MMOL/L) 20 L BUN (7 - 17 MG/DL) 8 Creatinine (0.52 - 1.04 MG/DL) 0.60 Glomerular Filtr Rate > 60 Glucose (74 - 106 MG/DL) 96 Calcium (8.4 - 10.2 MG/DL) 8.6 Serum , Qual (NEGATIVE) NEGATIVE L Coagulation INR (0.8 - 1.1) 1.0 APTT (22.0 - 33.0 SECONDS) 22.9 PT Patient/Control Mix (9.6 - 11.6 SECONDS) 10. 6 Hematology WBC (3.8 - 9.8 K/MM3) 6.4 RBC (3.58 - 4.97 M/MM3) 4.27 Hgb (11.2 - 14.9 G/DL) 8.2 L Hct (33.2 - 43.5 %) 29.3 L MCV (80.7 - 99.1 fL) 69 L MCH (27.0 - 34.1 pg) 19.2 L MCHC (32.2 - 35.7 %) 28.0 L RDW (12.1 - 15.2 %) 18.6 H Plt Count (129 - 368 K/MM3) 145 MPV (7.4 - 10.4 fl) 9.5 Neut % (Auto) (43 - 75 %) 63.3 Lymph % (Auto) (14 - 44 %) 29.0 [place] % (Auto) (4 - 13 %) 6.7 Eos % (Auto) (0 - 6 %) 0.3 Baso % (Auto) (0 - 2 %) 0.5 Neut # (Auto) (2.0 - 7.6 K/mm3) 4.04 Lymph # (Auto) (1.0 - 3.8 K/mm3) 1.85 [place] # (Auto) (0.1 - 0.8 K/mm3) 0.43 Eos # (Auto) (0.0 - 0.2 K/mm3) 0.02 Baso # (Auto) (0.0 - 0.2 K/mm3) 0.03 Immature Gran % (0.0 - 2.0 %) 0.2 Nucleated RBC % (0 - 1.0 %) 0.0 Nucleated RBCs # (Man) (0.0 - 0.1 K/mm3) 0.00 Platelet Estimate (ADEQUATE) ADEQUATE Plt Morphology Comment (NORMAL) NORMAL Hypochromasia (NONE) SLIGHT Poikilocytosis (NONE) FEW Anisocytosis (NONE) MODERATE Microcytosis (NONE) MODERATE Recent Impressions: CAT SCAN - CT ANGIO NECK W WO CONT 05/29 1705 Report Impression - Status: SIGNED Entered: 05/29/2019 6082 IMPRESSION: Filling defect in the very proximal left ICA of concern for acute intraluminal thrombus formation measuring approx imately a centimeter in length and resulting in high-grade stenosis. No measurable right carotid stenosis Normal enhancement of the vertebral arteries Neurology interventional consultation is advised Location: T 18 CTA of the brain 05/29/19 TECHNIQUE: CTA examination of the ounyie-vi-Rcjo is was performed on a helical scanner with patient given 100 mL of Iso leonides 360. Vascular protocol performed. Ultrathin slice axial images acquired from skull base through vertex of brain utilizing contiguou s 0.6mm slice thickness with coronal and sagittal reformatted images acquired on the PAC workstation. Post contrast only images acqui red. 3D reformatted images also acquired of the intracranial vessels using VITREA software by the interpreting radiologist . The e xamination was performed on an updated helical CT scanner utili zing low-dose radiation technique. Automatic exposure techniqu e was utilized to reduce radiation dose. CLINICAL HISTORY: Moderate headache with alterat ion in mental status FINDINGS: Do not see any findings suggestive of an aneurys m or vascular malformation. No discrete area of hemodynamicall y significant intracranial stenosis is seen. No large branch o cclusion is seen. No findings suggestive of vertebro basilar insuffic iency is seen. No space occupying process is seen. No midline shif t or abnormal enhancement is seen. No intracranial hemorrhage is seen with assessment for subarachnoid hemorrhage limited s arjun post contrast images only acquired. IMPRESSION: Normal CTA examination [id number] Findings have been reviewed with Dr. Villanueva in the emergency room on 05/29/19 at 5:25 PM Impression By: Divine Hackett MD CAT SCAN - CT ANGIO HEAD 05/29 1705 Report Impression - Status: SIGNED Entered: 05/29/2019 2680 IMPRESSION: Filling defect in the very proximal left ICA of concern for acute intraluminal thrombus formation measuring approx imately a centimeter in length and resulting in high-grade stenosis. No measurable right carotid stenosis Normal enhancement of the vertebral arteries Neurology interventional consultation is advised Location: T 18 CTA of the brain 05/29/19 TECHNIQUE: CTA examination of the vaqard-qx-Rnxl is was performed on a helical scanner with patient given 100 mL of Iso leonides 360. Vascular protocol performed. Ultrathin slice axial images acquired from skull base through vertex of brain utilizing contiguou s 0.6mm slice thickness with coronal and sagittal reformatted images acquired on the PAC workstation. Post contrast only images acqui red. 3D reformatted images also acquired of the intracranial vessels using VITREA software by the interpreting radiologist . The e xamination was performed on an updated helical CT scanner utili zing low-dose radiation technique. Automatic exposure techniqu e was utilized to reduce radiation dose. CLINICAL HISTORY: Moderate headache with alterat ion in mental status FINDINGS: Do not see any findings suggestive of an aneurys m or vascular malformation. No discrete area of hemodynamicall y significant intracranial stenosis is seen. No large branch o cclusion is seen. No findings suggestive of vertebro basilar insuffic iency is seen. No space occupying process is seen. No midline shif t or abnormal enhancement is seen. No intracranial hemorrhage is seen with assessment for subarachnoid hemorrhage limited s arjun post contrast images only acquired. IMPRESSION: Normal CTA examination [id number] Findings have been reviewed with Dr. Villanueva in the emergency room on 05/29/19 at 5:25 PM Impression By: Divine Hackett MD Lab Imaging Statement Laboratory radiographic studies reviewed and con sidered in the medical decision-making. Point of Care Testing Pulse Oximetry Pulse Ox % 100 On: Room air Interpretation Interpreted by me, Pulse oximetr y normal Time 1508 ECG #1 Interpretation Text/Dict Note short SC interval, normal axis, no ST changes, n o T-wave inversions. Date 05/29/19 Time 1502 Interpreted by ED physician ANNMARIE ECG Interpretation Normal sinus rhythm, No ST ZACHARIAH Rate 52 Rhythm Bradycardia Portions of this section were scribed by Jacy Anthony on 05/29/19 at 1834 Re-Evaluation MDM Free Text MDM Notes Free Text MDM Notes 39 yo F who was transferred from OSH for higher level of care for acute onset of confusion that began this morning upon awaking. She also admits to headache since last night, but she states that she has be en suffering from headaches intermittently (bifrontal) x 1 month. Upon presentation, patient is in NAD, VSS, and nontoxic appearing. Her PE is as above, and she does not exhibit neuro deficits other than sporadic expressive aphasia. At OSH, only CT head was preformed - concern for possible small bleed, so CTA preformed of head in addition to CTA of neck to help r/o carotid path ology. Interestingly, patient was found to have a large thrombus in the proxim al ICA causing high-grade occlusion. Unclear if this is the cause of her h eadaches and/or transient confusion/aphasia. Is on control, but joshua es hx of blood clots. Does mention that she has a siste r with a clotting disorder, but she states that she was also tested for this clotting disorder and h er results were found to be negative. Denies recent neck trauma or neck rajat pulation. Discussed with Dr. Hernandez or Neuro IR who stated that patient shoul d be transferred to their facility for emergent MRI. From there, the neuro interventionalist should be called about the results. Asuncion chavez, patient will be emergently taken to cath lab nurse. Per Neuro IR, anticoagulation should be withheld at this time. Family aware of findings, consequences of findings, and necessit y for transfer once again and are amenable to plan. VSS upon transfer. )( Re-Evaluation/Progress #1 Time of Re-Eval 1821 )( Re-Eval Status Unchanged ED Course Medication(s) Ordered Medication(s) Ordered: Antihistamine Drugs Sig/Shabana Start time Last Medication Dose Route Stop Time Status Admin Diphenhydramine HCl 50 MG X1ED STA 05/29 1533 D C 05/29 IV 05/29 1534 1601 Central Nervous System Agents Sig/Shabana Start time Last Medication Dose Route Stop Time Status Admin Aspirin 324 MG X1ED STA 05/29 1734 DC 05/29 CHEW 05/29 1735 1749 Acetaminophen/ 2 TAB ONCE ONE 05/29 1535 DC Butalbital/Caffeine PO 05/29 1536 1601 Diagnostic Agents Sig/Shabana Start time Last Medication Dose Route Stop Time Status Admin Iopamidol 100 ML .STK-MED ONE 05/29 1717 DC IV 05/29 1718 1717 Electrolytic, Caloric, And Elizabeth Sig/Shabana Start time Last Medication Dose Route Stop Time Status Admin Sodium Chloride 1,000 ML X1ED STA 05/29 1533 DC 05/29 IV 05/29 1633 1600 Gastrointestinal Drugs Sig/Shabana Start time Last Medication Dose Route Stop Time Status Admin Metoclopramide HCl 10 MG X1ED STA 05/29 1533 DC 05/29 IV 05/29 1534 1601 Consultation Consultation Referral/Consult Name Oc Levine MD Manager Forensic Called NEURO IR Requested Call Time 1759 Requested Call Date 05/29/19 Call Returned Call returned Call Returned Time 1759 Call Returned Date 05/29/19 Manager Forensic Will see patient, Agrees with eval, Agrees with plan Free Text Consult Notes Reports that pt should be sent to [facility] where they will perform an angiogram tonight to attempt to retrieve. Requests emergent MRI upon arrival and to not start heparin or novolog. Portions of this section were scribed by Jacy Anthony on 05/29/19 at 1817 Patient Discharge Departure Vital Signs/Condition Vital Signs First Documented: Result Date Time Pulse Ox 100 05/29 1508 B/P 131/80 05/29 1508 B/P Mean 97 05/29 1508 O2 Delivery Room air 05/29 1508 Temp 36.8 05/29 1508 Pulse 55 05/29 1508 Resp 17 05/29 1508 Last Documented: Result Date Time Pulse Ox 100 05/29 1902 B/P 103/53 05/29 1902 B/P Mean 69 05/29 1902 O2 Delivery Room air 05/29 1902 Temp 36.8 06/30 1902 Pulse 57 05/29 1902 Resp 16 05/29 1902 All vital signs available at the time of this en try have been reviewed. Condition Guarded Clinical Impression Clinical Impression Primary Impression: Internal carotid artery thro mbosis Secondary Impressions: Confusion, Headache Time of Impression 1824 Disposition Decision Transfer )( Request Time 1800 )( Request Date 05/29/19 Call Returned Time 1816 Spoke with: Emergency physician Receiving [facility] Transfer Accepted Yes Accepted by: Dr. Sarkar )( Acceptance Time 1816 )( Acceptance Date 05/29/19 Transfer Reason Higher level of care Patient Status Stable for transfer Patient Informed Yes Discharge/Care Plan Counseled Regarding Diagnosis, Lab resul ts, Imaging studies, Need for transfer Critical Care Time Spent (minutes): 40 Services Performed Patient management by Marco sinha spent at bedside, Reviewing test results, Reviewing imaging, Discussing elbert ent care, Documentation in record Separately billable procedures excluded from marco jules. CC Note 1 Total critical care time [40 ] minutes. Total critical care time documented does not include time spent on separately billed proc edures or the services of residents, students, nurses or physician assista nts. I personally saw and examined the patient. I have reviewed all diagno stic interpretations and treatment plans as written. I was present for the marie portions of any procedures performed and the inclusive time noted in any critical care statement. Critical care time includes patient m anagement by me, time spent at the patients bedside, time to review lab and imaging results, discussing patient care, documentation in the medical record, and time spent with the f amily or caregiver. Quality Measures Primary Headache CT Abnormal neuro exam Supervising Physician Note Scribe Statement Errol Anthony, 05/29/19 1603, scribing for and in the presence of [Dr. Rosa Villanueva MD]. Signed By: Errol Anthony, 05/29/19 1604 Provider Scribed Statement I personally performed the s ervices described in this documentation and reviewed the documentation that was dictated to the scrib e(s) in my presence, and it accurately records my words and actions. Rosa Powers MD, 05/29/19 Portions of this section were scribed by Jacy Anthony on 05/29/19 at 1824 Electronically Signed by Rosa Villanueva MD 06/07/19 at 1920 RPT #:[id number] END OF REPORT
--- NOTE | 2023-07-26 18:26 | EDPHYS ---
Physician Documentation [facility] Name: Swapna Elliott Age: 43 yrs Sex: Female : 1980 Arrival Date: 07/26/2023 Time: 17:45 Bed 11 Private MD: Orville Hobbs HPI: 07/26 18:13 This 43 yrs old Female presents to ER via Ambulatory with complaints of Ear clovis Pain. 18:13 The patient presents with pain. 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 - Social history:: Smoking status: Patient denies any tobacco usage or history of. ROS: 18:14 Constitutional: Negative for fever, chills, and weight loss, Eyes: Negative for injury, clovis pain, redness, and discharge, Neck: Negative for injury, pain, and swelling, Cardiovascular: Negative for chest pain, palpitations, and edema, Respiratory: Negative for shortness of breath, cough, wheezing, and pleuritic chest pain, Abdomen/GI: Negative for abdominal pain, nausea, vomiting, diarrhea, and constipation, Back: Negative for injury and pain, : Negative for injury, bleeding, discharge, and swelling, MS/Extremity: Negative for injury and deformity, Skin: Negative for injury, rash, and discoloration, Neuro: Negative for headache, weakness, numbness, tingling, and seizure, Psych: Negative for depression, anxiety, suicide ideation, homicidal ideation, and hallucinations, Allergy/Immunology: Negative for hives, rash, and allergies, Endocrine: Negative for neck swelling, polydipsia, polyuria, polyphagia, and marked weight changes, Hematologic/Lymphatic: Negative for swollen nodes, abnormal bleeding, and unusual bruising. 18:14 ENT: Positive for ear pain, Gum pain Teeth pain Exam: 18:14 Constitutional: This is a well developed, well nourished patient who is awake, alert, clovis and in no acute distress. Eyes: Pupils equal round and reactive to light, extra-ocular motions intact. Lids and lashes normal. Conjunctiva and sclera are non-icteric and not injected. Cornea within normal limits. Periorbital areas with no swelling, redness, or edema. ENT: Nares patent. No nasal discharge, no septal abnormalities noted. Tympanic membranes are normal and external auditory canals are clear. Oropharynx with no redness, swelling, or masses, exudates, or evidence of obstruction, uvula midline. Mucous membranes moist. Neck: Trachea midline, no thyromegaly or masses palpated, and no cervical lymphadenopathy. Supple, full range of motion without nuchal rigidity, or vertebral point tenderness. No Meningismus. Chest/axilla: Normal chest wall appearance and motion. Nontender with no deformity. No lesions are appreciated. Cardiovascular: Regular rate and rhythm with a normal S1 and S2. No gallops, murmurs, or rubs. Normal PMI, no JVD. No pulse deficits. Respiratory: Lungs have equal breath sounds bilaterally, clear to auscultation and percussion. No rales, rhonchi or wheezes noted. No increased work of breathing, no retractions or nasal flaring. Abdomen/GI: Soft, non-tender, with normal bowel sounds. No distension or tympany. No guarding or rebound. No evidence of tenderness throughout. Back: No spinal tenderness. No costovertebral tenderness. Full range of motion. Skin: Warm, dry with normal turgor. Normal color with no rashes, no lesions, and no evidence of cellulitis. MS/ Extremity: Pulses equal, no cyanosis. Neurovascular intact. Full, normal range of motion. Neuro: Awake and alert, GCS 15, oriented to person, place, time, and situation. Cranial nerves II-XII grossly intact. Motor strength 5/5 in all extremities. Sensory grossly intact. Cerebellar exam normal. Normal gait. Psych: Awake, alert, with orientation to person, place and time. Behavior, mood, and affect are within normal limits. Vital Signs: 18:01 BP 153 / 86; Pulse 68; Resp 17; Temp 98.8; Pulse Ox 98% ; Weight 151.95 kg; Height 5 ap3 ft. 5 in. ; Pain 9/10; 18:01 Body Mass Index 55.75 (151.95 kg, 165.1 cm) ap3 18:01 Pain Scale: Adult ap3 MDM: 17:51 Patient medically screened. clovis 18:22 Differential diagnosis: otitis media, dental caries, dental abscess, gingivostomatitis. [facility] Data reviewed: vital signs, nurses notes. Consideration of Admission/Observation Escalation of care including admission/observation considered. I considered the following discharge prescriptions or medication management in the emergency department Medications were administered in the Emergency Department. See MAR. Test considered but Not performed: Labs: no labs. Historians other than the Patient: Spouse/Significant Other: . Care significantly affected by the following chronic conditions: gerd, cva 2018. Administered Medications: 18:34 Drug: Rocephin (cefTRIAXone) IM 1 grams Route: IM; Site: right deltoid; ap3 18:34 Drug: HYDROmorphone IM 2 mg Route: IM; Site: left deltoid; ap3 18:34 Drug: Promethazine IM 25 mg Route: IM; Site: left deltoid; ap3 18:34 Drug: Amoxicillin-Clavulanate PO 875 mg Route: PO; ap3 Disposition Summary: 07/26/23 18:26 Discharge Ordered Location: Home clovis Problem: new clovis Symptoms: have improved clovis Condition: Stable clovis Diagnosis - Dental caries, unspecified clovis - Cracked tooth clovis Followup: clovis - With: Private Physician - When: 2 - 3 days - Reason: Recheck today's complaints, Continuance of care, Re-evaluation by your physician Followup: clovis - With: Varun King DDS - When: 2 - 3 days - Reason: Recheck today's complaints, Re-evaluation by your physician Discharge Instructions: - Discharge Summary Sheet [facility] - Dental Caries, Adult clovis - Dental Pain clovis - Tooth Injuries clovis - Dental Pain, [id number] lcovis - Root Canal clovis - Diet and Dental Disease clovis - Dental Caries, Adult, [id number] [facility] Forms: - Medication Reconciliation Form [facility] - Thank You Letter [facility] - Antibiotic Education [facility] - Prescription Opioid Use [facility] - Patient Portal Instructions [facility] - Leadership Thank You Letter [facility] Prescriptions: - acetaminophen-codeine 300-30 mg Oral tablet - take 2 tablet by ORAL route every 6 hours; 20 tablet; Refills: 0, Product clovis Selection Permitted - Augmentin 875-125 mg Oral Tablet - take 1 tablet by ORAL route every 12 hours for 10 days; 20 tablet; Refills: 0, clovis Product Selection Permitted - Diclofenac Sodium 75 mg Oral tablet,delayed release (DR/EC) - take 1 tablet by ORAL route 2 times per day; 20 tablet; Refills: 0, Product clovis Selection Permitted Signatures: Orville Wills MD MD cha Prokisch, Amanda, RN RN ap3
--- NOTE | 2023-07-26 18:26 | ER ---
Nurse's Notes [facility] Name: Swapna Elliott Age: 43 yrs Sex: Female : 1980 Arrival Date: 07/26/2023 Time: 17:45 Bed 11 Private MD: Diagnosis: Dental caries, unspecified;Cracked tooth Presentation: 07/26 18:01 Chief complaint: Patient states: her filling fell out earlier in the week and has now ap3 started having severe ear pain. 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 Coronavirus screen: At this time, the client does not indicate any symptoms associated with coronavirus-19. Ebola Screen: No symptoms or risks identified at this time. Initial Sepsis Screen: Does the patient meet any 2 criteria? No. Patient's initial sepsis screen is negative. Does the patient have a suspected source of infection? No. Patient's initial sepsis screen is negative. Risk Assessment: Do you want to hurt yourself or someone else? Patient reports no desire to harm self or others. Onset of symptoms is unknown. 18:01 Method Of Arrival: Ambulatory ap3 18:01 Acuity: ANGIE 4 ap3 Triage Assessment: 18:03 General: Appears uncomfortable, Behavior is calm, cooperative, appropriate for age. ap3 Pain: Complains of pain in right ear. EENT: Reports pain in right ear. Neuro: Level of Consciousness is awake, alert, obeys commands, Oriented to person, place, time, situation. Cardiovascular: Patient's skin is warm and dry. Respiratory: Airway is patent Respiratory effort is even, unlabored, Respiratory pattern is regular, symmetrical. 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 - Social history:: Smoking status: Patient denies any tobacco usage or history of. Screenin:04 [facility] ED Fall Risk Assessment (Adult) History of falling in the last 3 months, ap3 including since admission No falls in past 3 months (0 pts). Abuse screen: Denies threats or abuse. Nutritional screening: No deficits noted. Tuberculosis screening: No symptoms or risk factors identified. Vital Signs: 18:01 BP 153 / 86; Pulse 68; Resp 17; Temp 98.8; Pulse Ox 98% ; Weight 151.95 kg; Height 5 ap3 ft. 5 in. ; Pain 9/10; 18:01 Body Mass Index 55.75 (151.95 kg, 165.1 cm) ap3 18:01 Pain Scale: Adult ap3 ED Course: 17:47 Patient arrived in ED. rg4 17:51 Orville Wills MD is Attending Physician. [facility] 18:01 Jacey Patel, GRADY is Primary Nurse. ap3 18:02 Triage completed. ap3 18:04 Arm band placed on right wrist. ap3 18:04 Patient has correct armband on for positive identification. Bed in low position. Call ap3 light in reach. Side rails up X 1. Adult w/ patient. Pulse ox on. NIBP on. 18:24 Varun King DDS is Referral Physician. [facility] 18:49 No provider procedures requiring assistance completed. Patient did not have IV access ap3 during this emergency room visit. 18:50 Provided Education on: discharge medications. ap3 Administered Medications: 18:34 Drug: Rocephin (cefTRIAXone) IM 1 grams Route: IM; Site: right deltoid; ap3 18:34 Drug: HYDROmorphone IM 2 mg Route: IM; Site: left deltoid; ap3 18:34 Drug: Promethazine IM 25 mg Route: IM; Site: left deltoid; ap3 18:34 Drug: Amoxicillin-Clavulanate PO 875 mg Route: PO; ap3 Medication: 18:50 VIS not applicable for this client. ap3 Outcome: 18:26 Discharge ordered by . [facility] 18:49 Discharged to home ambulatory, with family. ap3 18:49 Condition: good 18:49 Discharge instructions given to patient, family, Instructed on discharge instructions, follow up and referral plans. medication usage, Demonstrated understanding of instructions, follow-up care, medications, Prescriptions given X 3. 18:50 Patient left the ED. ap3 Signatures: Orville Wills MD MD cha Garcia, Rubi rg4 Jacey Patel, GRADY RN ap3
[2023-07-26] MEDS ORDERED: PROMETHAZINE INJ 25 MG/ML AMP ONE (18:34)
[2023-07-26] MEDS ORDERED: HYDROMORPHONE HCL 2 MG/ML inj ONE (18:35)
[2023-07-26] MEDS ORDERED: CEFTRIAXONE 1000 MG/VIAL ONE (18:35)
[2023-07-26] MEDS ORDERED: WATER FOR INJ,STERILE 10 ML ONE (18:35)
[2023-07-26 19:00] VITALS: BP 153/86; TEMP 98.8; O2SAT 98
== END 2023-07-26 18:50 | disposition home or self-care (01) ==
LOC: EDBD 17:45 → ER 17:45
DX: K02.9 Dental caries, unspecified (principal); K03.81 Cracked tooth
CPT/HCPCS: 96372; 99284; J2550; J1170; J0696